=== PATIENT | female | born 1970 | race African-American/Black ===

== ENCOUNTER 2022-05-22 09:12 | Inpatient (IN) | payer MEDICAID, SELFPAY ==
[2022-05-22] VITALS (13 sets, daily range): BP systolic 124–186; BP diastolic 83–127; PULSE 67–76; RESP 13–18; TEMP 36.4–37; O2SAT 98–100; BMI 31.1
--- NOTE | 2022-05-22 | ECG_ITS ---
Test Reason : cp Blood Pressure : / mmHG Vent. Rate : 069 BPM Atrial Rate : 069 BPM P-R Int : 178 ms QRS Dur : 086 ms QT Int : 372 ms P-R-T Axes : 020 042 041 degrees QTc Int : 398 ms Normal sinus rhythm Normal ECG No previous ECGs available Referred By: Generic ED Physician Electronically Signed By:TOOTIE ESPINOZA
--- NOTE | ~2022-05-22 | XR_ITS ---
EXAMINATION: XR CHEST CLINICAL INFORMATION: Chest pain. COMPARISON: None TECHNIQUE: 2 views of the chest were obtained. FINDINGS: No significant abnormality is noted involving the heart, lungs, mediastinum, bony thorax or soft tissues. XR/XR chest 2V IMPRESSION: No acute cardiopulmonary process.
--- NOTE | ~2022-05-22 | XR_ITS ---
EXAMINATION: XR KNEE, LEFT CLINICAL INFORMATION: Left knee pain. COMPARISON: None TECHNIQUE: Four views of the left knee. FINDINGS: Bones and soft tissues are normal. No fracture or joint effusion. Alignment is anatomic. Joint spaces are well maintained. No abnormal soft tissue calcification. XR/XR knee LT 4V IMPRESSION: Unremarkable left knee.
--- NOTE | 2022-05-22 09:44 | ED_ITS ---
HPI - Extremity Injury (Lower) General Chief Complaint: Extremity Injury, Lower Stated Complaint: L knee swollen Time Seen by Provider: 05/22/22 09:43 Source: patient and EMS Mode of arrival: EMS Limitations: no limitations History of Present Illness HPI Narrative: 51 y/o female woth a PMH of HTN and GERD present to the ER for evaluation of left sided knee pain and swelling for the last 1 week. The patient also reports experiencing chest pain for the past 4 days. The patient has a family history of hyperparathyroidism (mother). Chest pain: The chest pain is sharp and currently a 4/10 that is located at the center of her chest. She reports on Saturday her pain radiated to her jaw, but at this time there is no radiation. The pain is intermittent and worsens with movement. Left Knee pain: The patient reports 10/10 left knee pain. She reports the pain started 2 days ago, and notes swelling above and around her knee, though has decreased due to an CORRINA wrap. She reports minimal relief with an corrina bandage and heat. Pain increases with movement and palpation. The patient denies any trauma, fever, or history of injury to the affected leg. MD complaint: knee injury Onset (ago): day(s) (2) Injury: Left: knee Place: home Severity: mild Severity scale (1-10): 4 Relieving factors: other (CORRINA bandage and heat ) Exacerbating factors: movement and palpation Associated symptoms: swelling Other symptoms: chest pain Treatments prior to arrival: heat therapy and bandage Related Data Allergies Allergy/AdvReac Type Severity Reaction Status Date / Time celecoxib [From Celebrex] AdvReac Unknown Verified 05/22/22 09:28 lisinopril AdvReac Unknown Verified 05/22/22 09:28 metoprolol AdvReac Unknown Verified 05/22/22 09:28 Review of Systems Review of Systems: Constitutional: No Fever, No Chills ENT/Mouth: No sore throat, No Rhinorrhea, No Swallowing Difficulty Eyes: No Eye Pain, No Swelling, No Redness Cardiovascular: + Chest Pain, No SOB, No Orthopnea, No Edema Respiratory: + Cough, + Clear Sputum, No Wheezing, No dyspnea Gastrointestinal: No Nausea, No Vomiting, No Diarrhea, No abdominal Pain, No Hematochezia, No Melena Genitourinary: No Dysuria, No Urinary Frequency, No Hematuria Musculoskeletal: + left knee joint pain, No Myalgias Skin: No Skin Lesions, No rash Neuro: No Weakness, No Numbness, No Dizziness, No Headache Heme/Lymph: No Bruising, No Lymphadenopathy Yes all other systems are reviewed and are negative [facility] Social History Social History Advance Directives: No Advance Directives Information Provided: No Physical Exam Vital Signs: Vital Signs: Last Vital Signs Temp 98.6 F 05/22/22 15:30 Pulse 73 05/22/22 15:50 Resp 15 05/22/22 15:50 BP 170/106 H 05/22/22 16:18 Pulse Ox 99 05/22/22 15:30 O2 Del Method 05/22/22 15:30 BMI result Body Mass Index 31.1 Appearance: Alert. Oriented X3. No acute distress. Eyes: Pupils equal, round and reactive to light. ENT: Pharynx normal. Neck: Normal inspection. Neck supple. Thyroid regular, no masses noted. CVS: Normal heart rate and rhythm. Pulses normal. Respiratory: No respiratory distress. Breath sounds normal. Abdomen: Soft and nontender. +BS x4 Skin: Skin warm and dry. Normal skin color. Normal skin turgor. No rashes. Extremities: Extreme tenderness to light touch of the left knee, tenderness to palpation superior to the patella, and the medial aspect of the knee. No edema noted. No erythema or warmth. Normal ROM of the left knee. No lower extremity edema. Neuro: Oriented X 3. No motor deficit. No sensory deficit. Stady gait Course Course Course Narrative: 9:45 - 51 y/o female PMH of HTN and GERD presenting with 10/10 left knee pain and 4/10 chest pain. Pain has been ongoing for 4 days, knee pain started 2 days ago. Physical exam remarkable for a left knee tender to palpation and pain with movement. No evidence of septic joint. Patient was HTN on exam at 177/115. Plan: Knee x-ray, CXR, Tropoin, EKG, CBC, CMP, nitroglycerin. Reevaluation(s) Reevaluation #1: 12 lead EKG NSR. Troponin only 3.6, low suspicion for myocardial injury. Chest pain is improved with SL nitro, 2/10. Calcium elevated at 12.8 Blood pressure decreases to 164/95 Plan: 2 L of NS ordered. Concern for possible hyperparathyoidism vs malignancy. She has strong family history of hyperparathyroidism. She is not on thiazide or lithium. She is not taking calcium supplements. LFTs, TSH, PTH and Vitamin D ordered. will repeat her chem 10 Time: 11:32 Reevaluation #2: BP improved after norvasc. Her Ca++ remains elevated 12.4 after 2L IVF. Will plan to admit for further workup and management Time: 16:23 Reevaluation #3: Incidentally COVID positive. Patient minimally symptomatic from this. Her chest pain could have been from this. Patient admitted. MDM - Extremity Injury (Lower) Medical Records Attestation: I reviewed the patient's medical records. Lab Data Attestation: I reviewed the patient's lab results. Result diagrams: 05/22/22 10:43 Labs: Lab Results 05/22/22 05/22/22 05/22/22 Range/Units 10:43 10:43 10:43 WBC 6.6 (4.8-10.8) X10*3/uL RBC 4.82 (4.20-5.50) X10*6/uL Hgb 10.6 L (12.0-16.0) g/dl Hct 35.8 L (37.0-47.0) % MCV 74.3 L (80.0-98.0) fL MCH 22.0 L (27.0-33.0) pg MCHC 29.6 L (31.0-35.0) g/dl RDW 16.9 H (11.0-16.0) % Plt Count 281 (160-400) X10*3/uL MPV 11.3 (9.4-12.3) fL Immature Gran % (Auto) 0.5 H (0.0-0.4) % Neut % (Auto) 46.1 (45-73) % Lymph % (Auto) 39.3 (20-40) % Garza % (Auto) 7.1 (2-11) % Eos % (Auto) 6.1 H (0-4) % Baso % (Auto) 0.9 (0-2) % Lymph # (Auto) 2.6 (1.2-4.9) X10*3/uL Garza # (Auto) 0.5 (0.1-1.2) X10*3/uL Eos # (Auto) 0.4 (0.0-0.4) X10*3/uL Baso # (Auto) 0.1 (0.0-0.2) X10*3/uL Abs Immat Gran (auto) 0.03 (0.00-0.03) X10*3/uL Absolute Neuts (auto) 3.1 (2.0-8.3) x10*3/uL Absolute Nucleated RBC 0.000 (0.0-0.012) X10*3/uL Nucleated RBC % (auto) 0.0 (0.0-0.2) /100WBC Sodium 140 (135-145) mmol/L Potassium 4.2 (3.3-5.1) mmol/L Chloride 108 (96-108) mmol/L Carbon Dioxide 24 (22-29) mmol/L Anion Gap 12 (12-20) BUN 10 (9-16) mg/dL Creatinine 0.87 (0.5-1.4) mg/dL Estim Creat Clear Calc 87.1 Estimated GFR > 60 Random Glucose 81 (60-115) mg/dL Calcium 12.8 H* (8.4-10.2) mg/dL Phosphorus (2.7-4.5) mg/dL Total Bilirubin 0.3 (0.0-1.0) mg/dL Direct Bilirubin < 0.2 (0.0-0.5) mg/dL AST 22 (5-31) U/L ALT 14 (0-31) U/L Alkaline Phosphatase 135 H (39-117) U/L Troponin I High Sens 3.6 (<3.5-17.0) ng/L Total Protein 7.8 (6.5-8.0) g/dL Albumin 4.4 (3.5-5.0) g/dL TSH 1.03 (0.32-4.0) uIU/mL COVID-19 (SUSAN) (Negative) COVID-19 Clin Com 05/22/22 05/22/22 Range/Units 15:45 16:23 WBC (4.8-10.8) X10*3/uL RBC (4.20-5.50) X10*6/uL Hgb (12.0-16.0) g/dl Hct (37.0-47.0) % MCV (80.0-98.0) fL MCH (27.0-33.0) pg MCHC (31.0-35.0) g/dl RDW (11.0-16.0) % Plt Count (160-400) X10*3/uL MPV (9.4-12.3) fL Immature Gran % (Auto) (0.0-0.4) % Neut % (Auto) (45-73) % Lymph % (Auto) (20-40) % [place] % (Auto) (2-11) % Eos % (Auto) (0-4) % Baso % (Auto) (0-2) % Lymph # (Auto) (1.2-4.9) X10*3/uL [place] # (Auto) (0.1-1.2) X10*3/uL Eos # (Auto) (0.0-0.4) X10*3/uL Baso # (Auto) (0.0-0.2) X10*3/uL Abs Immat Gran (auto) (0.00-0.03) X10*3/uL Absolute Neuts (auto) (2.0-8.3) x10*3/uL Absolute Nucleated RBC (0.0-0.012) X10*3/uL Nucleated RBC % (auto) (0.0-0.2) /100WBC Sodium 141 (135-145) mmol/L Potassium 4.0 (3.3-5.1) mmol/L Chloride 110 H (96-108) mmol/L Carbon Dioxide 23 (22-29) mmol/L Anion Gap 12 (12-20) BUN 7 L (9-16) mg/dL Creatinine 0.79 (0.5-1.4) mg/dL Estim Creat Clear Calc 96.0 Estimated GFR > 60 Random Glucose 99 (60-115) mg/dL Calcium 12.4 H (8.4-10.2) mg/dL Phosphorus 2.1 L (2.7-4.5) mg/dL Total Bilirubin (0.0-1.0) mg/dL Direct Bilirubin (0.0-0.5) mg/dL AST (5-31) U/L ALT (0-31) U/L Alkaline Phosphatase (39-117) U/L Troponin I High Sens (<3.5-17.0) ng/L Total Protein (6.5-8.0) g/dL Albumin (3.5-5.0) g/dL TSH (0.32-4.0) uIU/mL COVID-19 (SUSAN) Positive A (Negative) COVID-19 Clin Com See Note Imaging Data Knee X- Ray: Radiologist's impression: EXAMINATION: XR KNEE, LEFT CLINICAL INFORMATION: Left knee pain.? COMPARISON: None? TECHNIQUE: Four views of the left knee. FINDINGS: Bones and soft tissues are normal. No fracture or joint effusion. Alignment is anatomic. Joint spaces are well maintained. No abnormal soft tissue calcification.? XR/XR knee LT 4V IMPRESSION: Unremarkable left knee. Chest x-ray: Radiologist's impression: CLINICAL INFORMATION: Chest pain. COMPARISON: None TECHNIQUE: 2 views of the chest were obtained. FINDINGS: No significant abnormality is noted involving the heart, lungs, mediastinum, bony thorax or soft tissues. XR/XR chest 2V IMPRESSION: No acute cardiopulmonary process. ECG Data Attestation: I personally reviewed and interpreted this ECG as follows: ECG interpretation date: 05/22/22 ECG interpretation time: 11:52 Prior ECG tracings: not available for review Interpretation: Rate: 84 bpm Normal Sinus Rhythm Normal CO interval No ST elevations or depressions Critical Care Time Critical Care Time Critical Care Time: Yes Total Critical Care Time: 36 Attestation: I have personally provided critical care time exclusive of time spent on separately billable procedures. Time includes review of lab data, radiology results, discussion with consultants, and monitoring for potential decompensation. Intervention performed as documented. Discharge Plan Discharge Clinical Impression: Hypercalcemia, Poorly-controlled hypertension, Bursitis of knee, COVID-19 Patient Disposition: Admitted As Inpatient
[2022-05-22 10:49] LABS: MANUAL DIFF FLAG NO
[2022-05-22 10:50] LABS: Basophils Absolute Auto 0.1 X10*3/uL (0.0-0.2); Basophils Percent Auto 0.9 % (0-2); Eosinophils Absolute Auto 0.4 X10*3/uL (0.0-0.4); Eosinophils Percent Auto 6.1 % (0-4); Hematocrit 35.8 % (37.0-47.0); Hemoglobin 10.6 g/dl (12.0-16.0); Imm Gran Abs Auto 0.03 X10*3/uL (0.00-0.03); Imm Gran Pct Auto 0.5 % (0.0-0.4); Lymphocytes Absolute Auto 2.6 X10*3/uL (1.2-4.9); Lymphocytes Percent Auto 39.3 % (20-40); Mean Corpuscular HGB Conc 29.6 g/dl (31.0-35.0); Mean Corpuscular Volume 74.3 fL (80.0-98.0); Mean Platelet Volume 11.3 fL (9.4-12.3); Monocytes Absolute Auto 0.5 X10*3/uL (0.1-1.2); Monocytes Percent Auto 7.1 % (2-11); Neutrophils Absolute Auto 3.1 x10*3/uL (2.0-8.3); Neutrophils Percent Auto 46.1 % (45-73); Platelet Count 281 X10*3/uL (160-400); Red Blood Count 4.82 X10*6/uL (4.20-5.50); Red Cell Distribution Width 16.9 % (11.0-16.0); White Blood Count 6.6 X10*3/uL (4.8-10.8)
[2022-05-22 11:10] LABS: Anion Gap 12 (12-20); Blood Urea Nitrogen 10 mg/dL (9-16); Calcium 12.8 mg/dL (8.4-10.2); Carbon Dioxide 24 mmol/L (22-29); Chloride 108 mmol/L (96-108); Creatinine Clr Calc Pharmacy 87.1; Estimated Glomerular Filt Rate > 60; Glucose Random 81 mg/dL (60-115); Potassium 4.2 mmol/L (3.3-5.1); Sodium 140 mmol/L (135-145)
[2022-05-22 11:12] LABS: Troponin-I High Sensitivity 3.6 ng/L (<3.5-17.0)
[2022-05-22] MEDS: Nitroglycerin 0.4 MG TAB.SUBL SUBLINGUAL (11:20)
[2022-05-22] MEDS: 0.9 % Sodium Chloride 1,000 ML 999 ML IVCONT ×2 (11:32→13:05)
[2022-05-22 11:57] LABS: Alanine Aminotransferase 14 U/L (0-31); Albumin Level 4.4 g/dL (3.5-5.0); Alkaline Phosphatase 135 U/L (39-117); Aspartate Amino Transferase 22 U/L (5-31); Bilirubin Direct < 0.2 mg/dL (0.0-0.5); Bilirubin Total 0.3 mg/dL (0.0-1.0); Total Protein 7.8 g/dL (6.5-8.0)
[2022-05-22 12:19] LABS: Thyroid Stimulating Hormone 1.03 uIU/mL (0.32-4.0)
[2022-05-22] MEDS: amLODIPine Besylate 5 MG TABLET PO ×2 (15:52→17:21)
[2022-05-22] MEDS: Ketorolac Tromethamine 30 MG/ML VIAL IVPUSH (15:53)
[2022-05-22 16:11] LABS: Anion Gap 12 (12-20); Blood Urea Nitrogen 7 mg/dL (9-16); Calcium 12.4 mg/dL (8.4-10.2); Carbon Dioxide 23 mmol/L (22-29); Chloride 110 mmol/L (96-108); Estimated Glomerular Filt Rate > 60; Glucose Random 99 mg/dL (60-115); Sodium 141 mmol/L (135-145)
[2022-05-22 16:45] LABS: COVID-19 Test Positive (Negative); IDNOW Serial# 55D5AD1C
[2022-05-22 16:45] LABS: Phosphorus 2.1 mg/dL (2.7-4.5)
--- NOTE | 2022-05-22 17:04 | PHA.MEDREC ---
Pharmacy Consult ? Medication Reconciliation Pharmacy has completed the medication reconciliation. Patient states they are on both omeprazole and famotidine. Based on refill history, patient is not adherent to medications. Thanks David
[2022-05-22] MEDS: Acetaminophen 325 MG TABLET 975 MG PO (17:20)
--- NOTE | 2022-05-22 17:26 | PM.IMHP ---
History of Present Illness Date of Service: 05/22/22 Chief Complaint: Hypercalcemia 51 y/o female woth a PMH of HTN and GERD present to the ER for evaluation of left sided knee pain and swelling for the last 1 week. Routine labs demonstrated calcium was 12.4 in backdrop of family history of hyperparathyroidism. Also complained of chest pain. .. EKG unremarkable troponin flat. Received 2 L normal saline admission requested Review of Systems Review of Systems: Admits to chest pain that is reproducible Denies shortness of breath Denies nausea vomiting diarrhea Denies fever chills PMFSH Social History Advance Directives: No Advance Directives Information Provided: No Meds Allergies Allergy/AdvReac Type Severity Reaction Status Date / Time celecoxib [From Celebrex] AdvReac Unknown Verified 05/22/22 09:28 lisinopril AdvReac Unknown Verified 05/22/22 09:28 metoprolol AdvReac Unknown Verified 05/22/22 09:28 Active Medications: Current Medications Enoxaparin Sodium (Enoxaparin Sodium 40 Mg/0.4 Ml Syringe) 40 mg SUBCUT Q24H COUNTS INCLUDE 234 BEDS AT THE [facility] Famotidine (Famotidine 20 Mg Tablet) 40 mg PO DAILY PRN PRN Reason: Acid Reflux Furosemide (Furosemide 40 Mg/4 Ml Vial) 40 mg IVPUSH ONCE ONE; Protocol Stop: 05/22/22 17:22 Sodium Chloride (Ns) 1,000 mls @ 150 mls/hr IVCONT .Q6H40M COUNTS INCLUDE 234 BEDS AT THE [facility] Losartan Potassium (Losartan Potassium 50 Mg Tablet) 50 mg PO DAILY COUNTS INCLUDE 234 BEDS AT THE [facility]; Protocol Omeprazole (Omeprazole 40 Mg Capsule.) 40 mg PO DAILY COUNTS INCLUDE 234 BEDS AT THE [facility] Pharmacy Consult (Consult Rx Perform Med Rec) 1 each MISCELLANE ONCE PRN PRN Reason: Consult order Sodium Chloride (0.9 % Sodium Chloride Flush 3 Ml Syringe) 3 ml IVFLUSH QSHIFT COUNTS INCLUDE 234 BEDS AT THE [facility] Home Medications Medication Instructions Recorded Confirmed Last Taken Type famotidine 40 mg tablet 1 tab PO DAILY PRN Acid Reflux 05/22/22 05/22/22 05/22/22 History losartan 50 mg tablet 1 tab PO DAILY 05/22/22 05/22/22 05/22/22 History omeprazole 40 mg capsule,delayed 1 cap PO DAILY 05/22/22 05/22/22 05/22/22 History release Physical Exam Vital Signs and Narrative: Vital Signs: Last Vital Signs Temp 98.6 F 05/22/22 15:30 Pulse 73 05/22/22 15:50 Resp 15 05/22/22 15:50 BP 170/106 H 05/22/22 16:18 Pulse Ox 99 05/22/22 15:30 O2 Del Method 05/22/22 15:30 BMI result Body Mass Index 31.1 Const: Other: Awake alert oriented x3 no acute distress Resp: Other: Clear to auscultation bilaterally no rales rhonchi or wheezes Cardio: Other: No S4; positive S1-S2; no S3 murmurs rubs or gallops GI: Other: Soft nontender nondistended normoactive bowel sounds Neuro: Other: Cranial nerves 2-12 grossly intact as tested. Motor is 5/5 in all extremities. Sensation is intact. Cognition appropriate Extrem: Other: No edema bilaterally Results Labs CBC and Chem 7: 05/22/22 10:43 Labs: Laboratory Results - last 24 hr 05/22/22 05/22/22 05/22/22 10:43 10:43 10:43 MCV 74.3 L MCH 22.0 L MCHC 29.6 L RDW 16.9 H Plt Count 281 MPV 11.3 Immature Gran % (Auto) 0.5 H Neut % (Auto) 46.1 Lymph % (Auto) 39.3 [place] % (Auto) 7.1 Eos % (Auto) 6.1 H Baso % (Auto) 0.9 Lymph # (Auto) 2.6 [place] # (Auto) 0.5 Eos # (Auto) 0.4 Baso # (Auto) 0.1 Abs Immat Gran (auto) 0.03 Absolute Neuts (auto) 3.1 Absolute Nucleated RBC 0.000 Nucleated RBC % (auto) 0.0 Anion Gap 12 Estim Creat Clear Calc 87.1 Estimated GFR > 60 Random Glucose 81 Calcium 12.8 H* Phosphorus Total Bilirubin 0.3 Direct Bilirubin < 0.2 AST 22 ALT 14 Alkaline Phosphatase 135 H Troponin I High Sens 3.6 Total Protein 7.8 Albumin 4.4 TSH 1.03 COVID-19 (SUSAN) COVID-19 Clin Com 05/22/22 05/22/22 15:45 16:23 MCV MCH MCHC RDW Plt Count MPV Immature Gran % (Auto) Neut % (Auto) Lymph % (Auto) [place] % (Auto) Eos % (Auto) Baso % (Auto) Lymph # (Auto) [place] # (Auto) Eos # (Auto) Baso # (Auto) Abs Immat Gran (auto) Absolute Neuts (auto) Absolute Nucleated RBC Nucleated RBC % (auto) Anion Gap 12 Estim Creat Clear Calc 96.0 Estimated GFR > 60 Random Glucose 99 Calcium 12.4 H Phosphorus 2.1 L Total Bilirubin Direct Bilirubin AST ALT Alkaline Phosphatase Troponin I High Sens Total Protein Albumin TSH COVID-19 (SUSAN) Positive A COVID-19 Clin Com See Note Imaging Radiologist's Impressions: Impressions Chest X-Ray 05/22/22 10:10 IMPRESSION: No acute cardiopulmonary process. Knee X-Ray 05/22/22 10:10 IMPRESSION: Unremarkable left knee. Assessment and Plan (1) Hypercalcemia: Status: Acute (2) Poorly-controlled hypertension: Status: Acute (3) Bursitis of knee: Status: Acute (4) COVID-19: Status: Acute Plan 51-year-old female presenting with left knee pain in the absence of injury found to have a calcium of 12.6. Received 2 L of fluid in ER. Of note COVID positive 1. Hypercalcemia -parathyroid studies pending -admit to telemetry -forced diuresis with normal saline and IV Lasix -nephrology consult in a.m. -follow renals/divalents 2. Hypertension (poorly control) -continue losartan at outpatient dosing -at amlodipine 10 mg daily -titrate as indicated 3. COVID-19 -isolation -no indication for steroid/redesmivir as patient is essentially asymptomatic Full code Lovenox Patient will require 2 midnights going forward for forced diuresis with IV saline and IV Lasix to treat her hypercalcemia. She will need ongoing telemetry monitoring. This cannot be achieved in the lesser acute setting Quality Stroke Does the patient have a stroke diagnosis?: No VTE Prior VTE?: No VTE Risk Level:: Medical - moderate - high VTE Device Contraindication: Treatment Not Indicated VTE Drug Contraindication: N/A - Med Ordered
[2022-05-22] MEDS: Losartan Potassium 50 MG TABLET PO (17:54)
[2022-05-22] MEDS: Furosemide 40 MG/4 ML VIAL IVPUSH (17:54)
[2022-05-22] MEDS: 0.9 % Sodium Chloride 1,000 ML 150 ML IVCONT (18:13)
[2022-05-22] MEDS: Enoxaparin Sodium 40 MG/0.4 ML SYRINGE SUBCUT (20:05)
--- NOTE | 2022-05-22 21:18 | PC.NURSE ---
Addendum entered by Yane Thompson RN 05/22/22 22:02: Report given to jennifer Ahumada will be transported to bed 1 Original Note: Attempted to call report to overflow at 21:19. RN said she will call back when she is ready for report.
[2022-05-23] VITALS (7 sets, daily range): BP systolic 125–146; BP diastolic 63–94; PULSE 66–82; RESP 14–20; TEMP 36.1–37.1; O2SAT 97–100
[2022-05-23] MEDS: 0.9 % Sodium Chloride 1,000 ML 150 ML IVCONT ×3 (02:10→17:30)
[2022-05-23] MEDS: Omeprazole 40 MG CAPSULE.DR PO (06:11)
--- NOTE | 2022-05-23 06:29 | MHC.PIE ---
Patient transerred over from main ER to overflow area at approx 2230. Patient ambulated from stretcher to bed. Patient denies SOB, but does have a dry, persistent cough. This morning patient c/o headache & cough. Dr Tejada made aware, ordered tessalon & tylenol - awaiting order verification from pharmacy.
[2022-05-23 07:16] LABS: MANUAL DIFF FLAG NO
[2022-05-23 07:19] LABS: Basophils Percent Auto 0.9 % (0-2); Eosinophils Absolute Auto 0.5 X10*3/uL (0.0-0.4); Eosinophils Percent Auto 11.1 % (0-4); Hematocrit 38.7 % (37.0-47.0); Hemoglobin 11.4 g/dl (12.0-16.0); Imm Gran Abs Auto 0.02 X10*3/uL (0.00-0.03); Imm Gran Pct Auto 0.5 % (0.0-0.4); Lymphocytes Absolute Auto 1.1 X10*3/uL (1.2-4.9); Lymphocytes Percent Auto 24.8 % (20-40); Mean Corpuscular HGB Conc 29.5 g/dl (31.0-35.0); Mean Corpuscular Hemoglobin 21.9 pg (27.0-33.0); Mean Corpuscular Volume 74.4 fL (80.0-98.0); Mean Platelet Volume 11.3 fL (9.4-12.3); Monocytes Absolute Auto 0.5 X10*3/uL (0.1-1.2); Monocytes Percent Auto 11.8 % (2-11); Neutrophils Absolute Auto 2.2 x10*3/uL (2.0-8.3); Neutrophils Percent Auto 50.9 % (45-73); Platelet Count 265 X10*3/uL (160-400); Red Cell Distribution Width 17.1 % (11.0-16.0); White Blood Count 4.2 X10*3/uL (4.8-10.8)
[2022-05-23] MEDS: Acetaminophen 325 MG TABLET 650 MG PO (09:31)
[2022-05-23] MEDS: Losartan Potassium 50 MG TABLET PO (09:32)
[2022-05-23] MEDS: Benzonatate 100 MG CAPSULE PO (09:32)
--- NOTE | 2022-05-23 11:45 | MHC.CM.PN ---
spoke with pt over the phone she is covid positive she is vax x 4 she lives with her children has own ride home she is indepdent and workks at [employer] [facility] in [facility] plan home no servceis
[2022-05-23 12:37] LABS: Calcium (PTHI) 12.9 mg/dL (8.6-10.2); PTHI 167 pg/mL (16-77)
--- NOTE | 2022-05-23 16:31 | P.PNIM_ITS ---
Subjective Subjective Date of Service: 05/23/22 Interval History: No acute issues overnight. Mild cough related to COVID Review of Systems Admits to chest pain that is reproducible Denies shortness of breath Denies nausea vomiting diarrhea Denies fever chills Physical Exam Vital Signs: Vital Signs: Last Vital Signs Temp 97.8 F 05/23/22 11:25 Pulse 82 05/23/22 11:25 Resp 14 05/23/22 11:25 BP 134/88 05/23/22 11:25 Pulse Ox 98 05/23/22 11:25 O2 Del Method 05/23/22 11:25 BMI result Body Mass Index 31.1 Const: Other: Awake alert oriented x3 no acute distress Resp: Other: Clear to auscultation bilaterally no rales rhonchi or wheezes Cardio: Other: No S4; positive S1-S2; no S3 murmurs rubs or gallops GI: Other: Soft nontender nondistended normoactive bowel sounds Neuro: Other: Cranial nerves 2-12 grossly intact as tested. Motor is 5/5 in all extremities. Sensation is intact. Cognition appropriate Extrem: Other: No edema bilaterally Objective Data Active Medications Acetaminophen (Acetaminophen 325 Mg Tablet) 650 mg PO Q6H PRN PRN Reason: Pain, Mild (Pain Scale 1-3) Last Admin: 05/23/22 09:31 Dose: 650 mg Documented By: TAE Benzonatate (Benzonatate 100 Mg Capsule) 100 mg PO TID PRN PRN Reason: Cough Last Admin: 05/23/22 09:32 Dose: 100 mg Documented By: TAE Enoxaparin Sodium (Enoxaparin Sodium 40 Mg/0.4 Ml Syringe) 40 mg SUBCUT Q24H COUNT INCLUDES THE [facility] Last Admin: 05/22/22 20:05 Dose: 40 mg Documented By: DEBBIE Famotidine (Famotidine 20 Mg Tablet) 40 mg PO DAILY PRN PRN Reason: Acid Reflux Sodium Chloride (Ns) 1,000 mls @ 150 mls/hr IVCONT .Q6H40M COUNT INCLUDES THE [facility] Last Infusion: 05/23/22 16:21 Dose: 0 mls/hr Documented By: TAE Losartan Potassium (Losartan Potassium 50 Mg Tablet) 50 mg PO DAILY COUNT INCLUDES THE [facility]; Protocol Last Admin: 05/23/22 09:32 Dose: 50 mg Documented By: TAE Omeprazole (Omeprazole 40 Mg Oskar.) 40 mg PO DAILY@0630 COUNT INCLUDES THE [facility] Last Admin: 05/23/22 06:11 Dose: 40 mg Documented By: VIRI Pharmacy Consult (Consult Rx Perform Med Rec) 1 each MISCELLANE ONCE PRN PRN Reason: Consult order Sodium Chloride (0.9 % Sodium Chloride Flush 3 Ml Syringe) 3 ml IVFLUSH QSHIFT COUNT INCLUDES THE [facility] Last Admin: 05/23/22 15:57 Dose: Not Given Documented By: TAE Non-Admin Reason: IV Running Labs CBC & Chem 7: 05/23/22 07:06 05/23/22 Unknown Labs: Laboratory Results - last 24 hr 05/22/22 05/22/22 05/22/22 10:43 15:45 16:23 MCV MCH MCHC RDW Plt Count MPV Immature Gran % (Auto) Neut % (Auto) Lymph % (Auto) [place] % (Auto) Eos % (Auto) Baso % (Auto) Lymph # (Auto) [place] # (Auto) Eos # (Auto) Baso # (Auto) Abs Immat Gran (auto) Absolute Neuts (auto) Absolute Nucleated RBC Nucleated RBC % (auto) Phosphorus 2.1 L PTH Intact 167 H Calcium (PTH Intact) 12.9 H COVID-19 (SUSAN) Positive A COVID-19 Clin Com See Note 05/23/22 07:06 MCV 74.4 L MCH 21.9 L MCHC 29.5 L RDW 17.1 H Plt Count 265 MPV 11.3 Immature Gran % (Auto) 0.5 H Neut % (Auto) 50.9 Lymph % (Auto) 24.8 [place] % (Auto) 11.8 H Eos % (Auto) 11.1 H Baso % (Auto) 0.9 Lymph # (Auto) 1.1 L [place] # (Auto) 0.5 Eos # (Auto) 0.5 H Baso # (Auto) 0.0 Abs Immat Gran (auto) 0.02 Absolute Neuts (auto) 2.2 Absolute Nucleated RBC 0.000 Nucleated RBC % (auto) 0.0 Phosphorus PTH Intact Calcium (PTH Intact) COVID-19 (SUSAN) COVID-19 Clin Com Assessment and Plan (1) Hypercalcemia: Status: Acute (2) Poorly-controlled hypertension: Status: Acute (3) COVID-19: Status: Acute Plan 51-year-old female presenting with left knee pain in the absence of injury found to have a calcium of 12.6. Received 2 L of fluid in ER. Of note COVID positive 1. Hypercalcemia -parathyroid studies consistent with primary hyperparathyroidism -admit to telemetry -forced diuresis with normal saline and IV Lasix -check calcium in a.m.; if less than 12.5 can DC in a.m.. If greater than 12.4 start Sensipar 30 mg daily -needs to follow-up with Dr. Castorena at [facility] (as outpatient) 2. Hypertension (poorly control) -continue losartan at outpatient dosing -at amlodipine 10 mg daily -titrate as indicated 3. COVID-19 -isolation -no indication for steroid/redesmivir as patient is essentially asymptomatic Full code Lovenox Requires ongoing hospitalization for IV fluids to treat hypercalcemia Quality Stroke Does the patient have a stroke diagnosis?: No VTE Prior VTE?: No VTE Risk Level:: Medical - moderate - high VTE Device Contraindication: Treatment Not Indicated VTE Drug Contraindication: N/A - Med Ordered
[2022-05-23 18:35] LABS: Alanine Aminotransferase 13 U/L (0-31); Albumin Level 3.9 g/dL (3.5-5.0); Alkaline Phosphatase 142 U/L (39-117); Anion Gap 9 (12-20); Aspartate Amino Transferase 18 U/L (5-31); Bilirubin Total 0.2 mg/dL (0.0-1.0); Blood Urea Nitrogen 7 mg/dL (9-16); Calcium 12.3 mg/dL (8.4-10.2); Carbon Dioxide 25 mmol/L (22-29); Chloride 111 mmol/L (96-108); Creatinine Clr Calc Pharmacy 92.5; Estimated Glomerular Filt Rate > 60; Phosphorus 2.6 mg/dL (2.7-4.5); Potassium 4.4 mmol/L (3.3-5.1); Sodium 141 mmol/L (135-145); Total Protein 7.2 g/dL (6.5-8.0)
[2022-05-23] MEDS: Enoxaparin Sodium 40 MG/0.4 ML SYRINGE SUBCUT (19:45)
--- NOTE | 2022-05-23 19:50 | PC.NURSE ---
Pt A&OX3. Pleasant and cooperative. Speech is clear and appropriate. LS-CTA. Denies sob. Has occasional dry/non-productive cough. Denies pain. Ambulates to bsc with steady gait. IV fluids infusing as ordered. Will continue to monitor.
[2022-05-24 04:15] LABS: Glucose Random 67 mg/dL (60-115)
[2022-05-24 04:48] VITALS: BP 128/74; PULSE 61; RESP 17; TEMP 36.6; O2SAT 99
[2022-05-24] MEDS: Omeprazole 40 MG CAPSULE.DR PO (04:52)
[2022-05-24] MEDS: Acetaminophen 325 MG TABLET 650 MG PO (04:52)
[2022-05-24 05:24] LABS: Creatinine Urine 33.61 mg/dL
[2022-05-24 07:49] VITALS: BP 136/79; PULSE 65; RESP 14; TEMP 36.7; O2SAT 99
[2022-05-24] MEDS: Losartan Potassium 50 MG TABLET PO (07:56)
[2022-05-24] MEDS: 0.9 % Sodium Chloride 1,000 ML 150 ML IVCONT (07:57)
[2022-05-24 08:10] LABS: MANUAL DIFF FLAG NO
[2022-05-24 08:22] LABS: Basophils Percent Auto 0.4 % (0-2); Eosinophils Absolute Auto 0.5 X10*3/uL (0.0-0.4); Eosinophils Percent Auto 11.2 % (0-4); Hematocrit 38.7 % (37.0-47.0); Hemoglobin 11.2 g/dl (12.0-16.0); Imm Gran Abs Auto 0.01 X10*3/uL (0.00-0.03); Imm Gran Pct Auto 0.2 % (0.0-0.4); Lymphocytes Percent Auto 43.3 % (20-40); Mean Corpuscular HGB Conc 28.9 g/dl (31.0-35.0); Mean Corpuscular Hemoglobin 21.8 pg (27.0-33.0); Mean Corpuscular Volume 75.3 fL (80.0-98.0); Mean Platelet Volume 12.1 fL (9.4-12.3); Monocytes Absolute Auto 0.5 X10*3/uL (0.1-1.2); Monocytes Percent Auto 11.4 % (2-11); Neutrophils Absolute Auto 1.6 x10*3/uL (2.0-8.3); Neutrophils Percent Auto 33.5 % (45-73); Platelet Count 287 X10*3/uL (160-400); Red Blood Count 5.14 X10*6/uL (4.20-5.50); Red Cell Distribution Width 17.2 % (11.0-16.0); White Blood Count 4.7 X10*3/uL (4.8-10.8)
[2022-05-24 08:39] LABS: Alanine Aminotransferase 13 U/L (0-31); Albumin Level 4.1 g/dL (3.5-5.0); Alkaline Phosphatase 147 U/L (39-117); Anion Gap 10 (12-20); Aspartate Amino Transferase 19 U/L (5-31); Bilirubin Total 0.2 mg/dL (0.0-1.0); Blood Urea Nitrogen 6 mg/dL (9-16); Calcium 12.7 mg/dL (8.4-10.2); Carbon Dioxide 25 mmol/L (22-29); Chloride 109 mmol/L (96-108); Creatinine Clr Calc Pharmacy 93.6; Estimated Glomerular Filt Rate > 60; Glucose Fasting 83 mg/dL (60-99); Potassium 4.4 mmol/L (3.3-5.1); Sodium 140 mmol/L (135-145); Total Protein 7.6 g/dL (6.5-8.0)
--- NOTE | 2022-05-24 08:40 | PC.NURSE ---
critical calcium relayed to Amadou SKINNER
--- NOTE | 2022-05-24 10:23 | PM.DS ---
DS: Providers Provider Date of Service: 05/24/22 Date of admission: 05/22/22 17:20 Primary care physician: Jeanmarie Drake MD Consults: 05/22/22 17:24 Consult to Nephrology Routine Consulting Provider: Julian Davis Reason for consultation: Hypercalcemia Has provider been notified: Yes DS: Diagnosis Discharge Diagnosis (1) Hypercalcemia: Status: Acute (2) COVID-19: Status: Acute DS: Summary Hospital Course Hospital Course: Chief Complaint: Hypercalcemia 51 y/o female woth a PMH of HTN and GERD present to the ER for evaluation of left sided knee pain and swelling for the last 1 week.? Routine labs demonstrated calcium was 12.4 in backdrop of family history of hyperparathyroidism.? Also complained of chest pain. ..? EKG unremarkable troponin flat.? Received 2 L normal saline admission requested Hospital course: Patient has known hyperparathyroidismm causing hypercalcemia should have surgery for removal. She was treated with IV Lasix and fluid and assymptomatic from hypercalcemia, calcium level is 12.[address] Davis ([employer]ist) will help facilitate surgery for her at [facility] Time Spent with Patient Time attestation: Total time spent providing and/or coordinating discharge services: Discharge coordination time: Greater than 30 minutes Quality: Safe Use of Opioids Does Pt have an Active Cancer Diagnosis on the Problem List?: No Quality: Stroke Does the patient have a stroke diagnosis?: No Physical Exam Vital Signs: Vital Signs: Last Vital Signs Temp 98.0 F 05/24/22 07:49 Pulse 65 05/24/22 07:49 Resp 14 05/24/22 07:49 BP 136/79 05/24/22 07:49 Pulse Ox 99 05/24/22 07:49 O2 Del Method 05/24/22 07:49 BMI result Body Mass Index 31.1 DS: Data Data Completed and Pending Labs on day of discharge: Laboratory Results - last 24 hr 05/22/22 05/23/22 05/23/22 10:43 17:46 17:46 WBC RBC Hgb Hct MCV MCH MCHC RDW Plt Count MPV Immature Gran % (Auto) Neut % (Auto) Lymph % (Auto) [place] % (Auto) Eos % (Auto) Baso % (Auto) Lymph # (Auto) [place] # (Auto) Eos # (Auto) Baso # (Auto) Abs Immat Gran (auto) Absolute Neuts (auto) Absolute Nucleated RBC Nucleated RBC % (auto) Sodium 141 Cancelled Potassium 4.4 Cancelled Chloride 111 H Cancelled Carbon Dioxide 25 Cancelled Anion Gap 9 L Cancelled BUN 7 L Creatinine 0.82 Estim Creat Clear Calc 92.5 Estimated GFR > 60 Random Glucose 67 Fasting Glucose Cancelled Calcium 12.3 H Cancelled Phosphorus 2.6 L Cancelled Total Bilirubin 0.2 AST 18 ALT 13 Alkaline Phosphatase 142 H Total Protein 7.2 Albumin 3.9 PTH Intact 167 H Calcium (PTH Intact) 12.9 H Urine Creatinine 05/24/22 05/24/22 05/24/22 04:55 07:29 07:29 WBC 4.7 L RBC 5.14 Hgb 11.2 L Hct 38.7 MCV 75.3 L MCH 21.8 L MCHC 28.9 L RDW 17.2 H Plt Count 287 MPV 12.1 Immature Gran % (Auto) 0.2 Neut % (Auto) 33.5 L Lymph % (Auto) 43.3 H [place] % (Auto) 11.4 H Eos % (Auto) 11.2 H Baso % (Auto) 0.4 Lymph # (Auto) 2.0 [place] # (Auto) 0.5 Eos # (Auto) 0.5 H Baso # (Auto) 0.0 Abs Immat Gran (auto) 0.01 Absolute Neuts (auto) 1.6 L Absolute Nucleated RBC 0.000 Nucleated RBC % (auto) 0.0 Sodium 140 Potassium 4.4 Chloride 109 H Carbon Dioxide 25 Anion Gap 10 L BUN 6 L Creatinine 0.81 Estim Creat Clear Calc 93.6 Estimated GFR > 60 Random Glucose Fasting Glucose 83 Calcium 12.7 H* Phosphorus Total Bilirubin 0.2 AST 19 ALT 13 Alkaline Phosphatase 147 H Total Protein 7.6 Albumin 4.1 PTH Intact Calcium (PTH Intact) Urine Creatinine 33.61 Discharge Plan Discharge Anticipated Discharge Date/Time: 05/24/22 10:19 Patient Disposition: Home, Self-Care Discharge Diagnosis: Hypercalcemia Referrals: Jeanmarie Drake MD [Primary Care Provider] - 1 Week Discharge Medications: Continued losartan 50 mg tablet 1 tab PO DAILY famotidine 40 mg tablet 1 tab PO DAILY PRN (Reason: Acid Reflux) omeprazole 40 mg capsule,delayed release(DR/EC) 1 cap PO DAILY Discharge Orders: Discharge Order (Routine); Ordered 05/24/22 Ordered By: Sina Tobar Diet: Advance to usual diet Activity on Discharge: As tolerated Stand Alone Forms: Patient Portal Discharge page Care Plan Goals: resolution of hypercalcemia Health Concerns: Hypercalcemia Plan of Treatment: follow up with Dr. Davis who will refer you to surgoen of surgery of parathyroidis Assessment: as above Discharge Date/Time: 05/24/22 12:02
--- NOTE | 2022-05-24 10:54 | CONS_ITS ---
DATE OF SERVICE: 05/23/2022 HISTORY OF PRESENT ILLNESS: I was asked to see patient to assist in evaluation and management of patient's hypercalcemia with a calcium was 12.4 on admission, who presented to the emergency room with left-sided knee pain and swelling. Decision was made to admit to the hospital because of hypercalcemia. She also apparently had some chest pain. Patient tells me that several years ago, she was noted to have hypercalcemia, had a workup with a diagnosis of primary hyperthyroidism, saw medical equipment repairer in , but was lost to follow up. She also tells me she has remote history of kidney stones. She has a family history of hypercalcemia and primary hyperthyroidism in her mom, required surgery. Presently, she is complaining of the knee pain, but otherwise doing okay. Her calcium today is pending. She denies any nausea, vomiting, belly pain, flank pain, or joint pain other than her knee. PAST MEDICAL HISTORY: Notable for the arthritis and hypertension. MEDICATIONS: Her medications on admission are noted in the admitting notes include losartan, Pepcid, and omeprazole. Her current medications on the OCT. SOCIAL HISTORY: She is nonsmoker, nondrinker. No illicit drug use. FAMILY HISTORY: As mentioned with the hypercalcemia in the mom with primary hyperparathyroidism. She is not aware of anyone who is having hypercalcemia or hyperparathyroidism or any other endocrine disorders. PHYSICAL EXAMINATION: VITAL SIGNS: Blood pressure 134/80 with a heart rate in the 80s. She is afebrile. HEENT: Head is atraumatic and normocephalic. NECK: Supple. Mucous membranes are moist. LUNGS: Clear. CARDIAC: Regular rate and rhythm without rub. ABDOMEN: Soft, nontender. Good bowel sounds. No CVA tenderness. EXTREMITIES: Show no edema. LABORATORY DATA: From yesterday afternoon showed sodium 141, potassium 4, chloride 110, BUN 7, creatinine 0.79. Calcium 12.4, apparently was as high as 12.8 yesterday in the morning. Phosphorus 2.1. Her PTH level came back to 167. IMPRESSION: A 51-YEAR-OLD WITH HYPERCALCEMIA AND ELEVATED PTH, CONSISTENT WITH PRIMARY HYPERPARATHYROIDISM. At this juncture, she does not need specific treatment for her hypercalcemia, but should be evaluated for parathyroidectomy. She has had a history of kidney stones and persistent hypercalcemia with an appropriate increase in intact PTH. We will order urine calcium to creatinine ratio to rule out hypercalcemia with hypocalciuric, which can be familial, so-called (FHH). If her calcium will increase further, 1 could use Sensipar, but at this point in time, I do not think she needs it, but she should avoid calcium and vitamin D supplementation. She will need to follow up with Endocrine and see the endocrine surgeon regarding treatment of her primary hyperparathyroidism. So, in summary, I will order urine calcium/creatinine ratio. Continue to track calcium. Avoid dehydration. Avoid vitamin D and calcium supplementation. Needs evaluation of the endocrine as well as the endocrine surgeon. MD MALVIN Bravo/ASUNCION / [id number]
--- NOTE | 2022-05-24 11:03 | P.PNNP_ITS ---
Subjective Subjective Date of Service: 05/24/22 Interval history: Seen and examined, events noted Physical Exam Vital Signs: Vital Signs: Last Vital Signs Temp 98.0 F 05/24/22 07:49 Pulse 65 05/24/22 07:49 Resp 14 05/24/22 07:49 BP 136/79 05/24/22 07:49 Pulse Ox 99 05/24/22 07:49 O2 Del Method 05/24/22 07:49 BMI result Body Mass Index 31.1 Const: Other: Awake alert oriented x3 no acute distress Resp: Other: Clear to auscultation bilaterally no rales rhonchi or wheezes Cardio: Other: No S4; positive S1-S2; no S3 murmurs rubs or gallops GI: Other: Soft nontender nondistended normoactive bowel sounds Neuro: Other: Cranial nerves 2-12 grossly intact as tested. Motor is 5/5 in all extremities. Sensation is intact. Cognition appropriate Extrem: Other: No edema bilaterally Objective Data Labs CBC & Chem 7: 05/24/22 07:29 05/24/22 07:29 Labs: Laboratory Results - last 24 hr 05/22/22 05/23/22 05/23/22 10:43 17:46 17:46 WBC RBC Hgb Hct MCV MCH MCHC RDW Plt Count MPV Immature Gran % (Auto) Neut % (Auto) Lymph % (Auto) [place] % (Auto) Eos % (Auto) Baso % (Auto) Lymph # (Auto) [place] # (Auto) Eos # (Auto) Baso # (Auto) Abs Immat Gran (auto) Absolute Neuts (auto) Absolute Nucleated RBC Nucleated RBC % (auto) Sodium 141 Cancelled Potassium 4.4 Cancelled Chloride 111 H Cancelled Carbon Dioxide 25 Cancelled Anion Gap 9 L Cancelled BUN 7 L Creatinine 0.82 Estim Creat Clear Calc 92.5 Estimated GFR > 60 Random Glucose 67 Fasting Glucose Cancelled Calcium 12.3 H Cancelled Phosphorus 2.6 L Cancelled Total Bilirubin 0.2 AST 18 ALT 13 Alkaline Phosphatase 142 H Total Protein 7.2 Albumin 3.9 PTH Intact 167 H Calcium (PTH Intact) 12.9 H Urine Creatinine 05/24/22 05/24/22 05/24/22 04:55 07:29 07:29 WBC 4.7 L RBC 5.14 Hgb 11.2 L Hct 38.7 MCV 75.3 L MCH 21.8 L MCHC 28.9 L RDW 17.2 H Plt Count 287 MPV 12.1 Immature Gran % (Auto) 0.2 Neut % (Auto) 33.5 L Lymph % (Auto) 43.3 H [place] % (Auto) 11.4 H Eos % (Auto) 11.2 H Baso % (Auto) 0.4 Lymph # (Auto) 2.0 [place] # (Auto) 0.5 Eos # (Auto) 0.5 H Baso # (Auto) 0.0 Abs Immat Gran (auto) 0.01 Absolute Neuts (auto) 1.6 L Absolute Nucleated RBC 0.000 Nucleated RBC % (auto) 0.0 Sodium 140 Potassium 4.4 Chloride 109 H Carbon Dioxide 25 Anion Gap 10 L BUN 6 L Creatinine 0.81 Estim Creat Clear Calc 93.6 Estimated GFR > 60 Random Glucose Fasting Glucose 83 Calcium 12.7 H* Phosphorus Total Bilirubin 0.2 AST 19 ALT 13 Alkaline Phosphatase 147 H Total Protein 7.6 Albumin 4.1 PTH Intact Calcium (PTH Intact) Urine Creatinine 33.61 Procedures Date of Service Date of Service: 05/24/22 Assessment & Plan Assessment and plan (1) Hypercalcemia: Status: Acute (2) Poorly-controlled hypertension: Status: Acute (3) COVID-19: Status: Acute Plan 51-year-old female presenting with left knee pain in the absence of injury found to have a calcium of 12.6. Received 2 L of fluid in ER and she gives h/o prior Dx of PHPTHism several years ago but not treated 1. HyperCA: c/w PHPTHism dout [facility]; no indication to treat with sensipar at this time but should get PTX ( [place] [facility] [place] an [place] for her to c him for PTx evaluation) REC: d/c IVF and track Ca; refer to Dr Loo as noted above Time Spent With Patient Time: Total time spent is greater than 50% in coordination of care (as documented) at patient's floor/unit and/or counseling patient: Progress Note: Quality Stroke Does the patient have a stroke diagnosis?: No
[2022-05-24 11:47] VITALS: BP 133/69; PULSE 75; RESP 16; TEMP 36.6; O2SAT 97
[2022-05-26 23:07] LABS: Calcium, Random Urine 11.5 mg/dL
[2022-05-28 14:32] LABS: Vitamin D 25-OH, D2 <4 ng/mL; Vitamin D 25-OH, D3 25 ng/mL; Vitamin D 25-OH, Total 25 ng/mL (30-100)
== END 2022-05-24 12:02 | disposition home or self-care (01) | DRG 424 ==
LOC: HO.ED 16:26 → HO.EDOVER 17:40
PROVIDERS: Internal Medicine Nephrology; Physician Assistant; Admitting Provider Hospitalist; Emergency Provider Emergency Medicine; PCP Internal Medicine; Visit Provider Internal Medicine
DX: E21.0 Primary hyperparathyroidism (principal); U07.1 COVID-19; M71.9 Bursopathy, unspecified; I10 Essential (primary) hypertension; Z88.6 Allergy status to analgesic agent; Z88.8 Allergy status to other drugs, medicaments and biological substances; Z79.899 Other long term (current) drug therapy
CPT/HCPCS: 36415; 71046; 73564; 80048; 80053; 80076; 82306; 82310; 83970; 84100; 84443; 84484; 85025; 87635; 93005; 99219; 99285; J1650; J1885; J1940

== ENCOUNTER 2022-07-26 10:34 | Outpatient (REF) | payer MEDICAID, SELFPAY ==
--- NOTE | ~2022-07-26 | CT_ITS ---
EXAMINATION: CT CHEST WITHOUT CONTRAST CLINICAL INFORMATION: Chronic bronchitis COMPARISON: None TECHNIQUE: Multidetector volumetric CT imaging of the chest was done. Axial MIP volume rendering provided. Sagittal and coronal reformatted images were obtained. This CT examination was performed using dose optimization techniques as appropriate, variously including the following: *Automated exposure control *Adjustment of mA and/or kV according to patient size (this includes techniques or standardized protocols for targeted exams where dose is matched to indication/reason for exam; i.e. 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 There are no pulmonary nodules, mass or consolidation. The interstitial lung pattern is normal. No bronchiectasis or wall thickening. MEDIASTINUM: The thyroid lobes are symmetric and normal. The central trachea and bronchi are widely patent. Heart size and the great vessels are normal caliber. No pericardial effusion seen. No abnormal size mediastinal or hilar lymph nodes seen. There is moderate size residual thymic tissue visualized. CORONARY ARTERY CALCIFICATION: None visualized on this study. PLEURA: There is no pleural effusion. No pleural mass or thickening. AXILLA: Small shotty lymph nodes are seen in the axilla. UPPER ABDOMEN: Visualized liver, spleen, pancreas and bilateral adrenal glands are unremarkable. No gallstone seen. OSSEOUS STRUCTURES: No aggressive lytic or sclerotic process seen. CT/CT chest wo IV con IMPRESSION: Unremarkable CT chest exam. Fleischner guidelines were followed.
== END 2022-07-26 10:35 | disposition home or self-care (01) ==
LOC: HO.CT 10:34
PROVIDERS: PCP Internal Medicine; Visit Provider Physician Assistant
DX: J41.8 Mixed simple and mucopurulent chronic bronchitis (principal)
CPT/HCPCS: 71250

== ENCOUNTER 2022-08-18 15:22 | Emergency (ER) | payer MEDICAID, SELFPAY ==
[2022-08-18 16:24] VITALS: BP 138/97; PULSE 82; RESP 18; TEMP 37; O2SAT 100; BMI 29.9
--- NOTE | 2022-08-18 16:27 | ECG_ITS ---
Test Reason : dizzyness Blood Pressure : / mmHG Vent. Rate : 075 BPM Atrial Rate : 075 BPM P-R Int : 180 ms QRS Dur : 094 ms QT Int : 374 ms P-R-T Axes : 059 044 049 degrees QTc Int : 417 ms Normal sinus rhythm Normal ECG When compared with ECG of 22-MAY-2022 09:37, No significant change was found Referred By: Mickie Edwards Electronically Signed By:CHRISTIANNE DAHL MD
--- NOTE | 2022-08-18 16:27 | ED.GENADULT ---
HPI - General Adult General Chief complaint: General Medical Stated complaint: Flu like symptoms Time Seen by Provider: 08/18/22 18:30 Source: patient Mode of arrival: ambulatory Limitations: no limitations History of Present Illness HPI narrative: Patient is a 51 year old assigned female at with a history of thyroidectomy presenting to the emergency department today with body aches, dizziness, and nausea. Patient states that 2 weeks ago she had her thyroid removed and has not been started on any thyroid medications. Patient states that she has been having these current symptoms over the last 2 days. Patient denies any lightheadedness, abdominal pain, vomiting, fever, chills, blurry vision, double vision, loss of vision, chest pain, difficulty breathing, shortness of breath, back pain, night sweats, pain with urination, increased urinary frequency, increased urinary urgency, blood in her urine or stool, syncope or a near syncopal episode, recent trauma or falls, bowel incontinence, bladder incontinence, bowel retention, bladder retention, or any other complaints at this time. Onset (ago): day(s) (2) Severity: mild Severity scale (1-10): 2 Relieving factors: none Exacerbating factors: none Associated symptoms: nausea/vomiting Treatments prior to arrival: none Related Data Home Medications Medication Instructions Recorded Confirmed famotidine 40 mg tablet 1 tab PO DAILY PRN Acid Reflux 05/22/22 05/22/22 losartan 50 mg tablet 1 tab PO DAILY 05/22/22 05/22/22 omeprazole 40 mg capsule,delayed 1 cap PO DAILY 05/22/22 05/22/22 release Previous Rx's Medication Instructions Recorded ondansetron 4 mg disintegrating 4 mg PO Q8H 3 days #9 tabs 08/18/22 tablet Allergies Allergy/AdvReac Type Severity Reaction Status Date / Time celecoxib [From Celebrex] AdvReac Intermediate Swelling Verified 08/18/22 16:24 lisinopril AdvReac Intermediate Swelling Verified 08/18/22 16:24 metoprolol AdvReac Intermediate Swelling Verified 08/18/22 16:24 Review of Systems Constitutional: Constitutional: Reports no additional constitutional complaints, Reports body ache(s), Denies chills, Denies fever(s) and Denies night sweats Eyes: Eyes: Reports no additional eye complaints, Denies blurry vision, Denies change in vision, Denies diplopia, Denies eye discharge, Denies loss of vision and Denies eye pain ENT: Reports dizziness Cardiovascular: Cardiovascular: Reports no additional cardiovascular complaints, Denies chest pain, Denies lightheadedness, Denies Loss of Consciousness and Denies dyspnea Respiratory: Respiratory: Reports no additional respiratory complaints and Denies dyspnea Gastrointestinal: Gastrointestinal: Reports no additional gastrointestinal complaints, Denies abdominal pain, Denies melena, Denies hematochezia, Denies change in bowel habits, Denies change in stool character and Reports nausea Genitourinary: Genitourinary: Denies hematuria, Denies urinary frequency, Denies dysuria, Denies urinary incontinence, Denies urinary hesitancy and Denies urinary urgency Musculoskeletal: Musculoskeletal: Reports no additional musculoskeletal complaints, Denies numbness and Denies tingling Neurologic: Reports dizziness, Denies loss of vision, Denies numbness and Denies tingling Psychiatric: Psychiatric: Reports no additional psychiatric complaints Endocrine: Endocrine: Reports no additional endocrine complaints Hematologic/Lymphatic: Hematologic/Lymphatic: Reports no additional hematologic/lymphatic complaints Allergic/Immunologic: Allergic/Immunologic: Reports no additional allergic/immunologic complaints PMFSH Past Medical History Attestation statement: The following information was validated with the patient. Source: old records reviewed and nursing notes reviewed Medical History Bursitis of knee Poorly-controlled hypertension Social History Social History Advance Directives: No Advance Directives Information Provided: Yes service: No Physical Exam ED Vital Signs: Vital Signs - 24 hr 08/18/22 16:24 Temperature 98.6 F Pulse Rate 82 Respiratory Rate 18 Blood Pressure 138/97 H Pulse Oximetry 100 Oxygen Delivery Method Room Air BMI result Body Mass Index 29.9 Const General: cooperative, no acute distress, alert and awake Nutritional Appearance: well nourished Orientation/consciousness: patient oriented x3 Limitations: no limitations HENMT Head: Yes normal to inspection and Yes atraumatic Ears: hearing grossly normal bilaterally and external ears normal General nose exam: Normal external nose present, no nasal discharge noted and no epistaxis Face and sinus: Yes normal facial exam, No abrasion and No laceration Mouth: Normal oral and palatal mucosa present, no drooling and no muffled voice Eyes General: appearance normal, both eyes and all related structures Periorbital: periorbital findings normal Eyelids: Yes eyelids normal Conjunctivae: conjunctivae normal Pupils: Equal, round and reactive pupils present EOM: EOMs intact bilaterally Neck Neck: Yes normal visual inspection, Yes full ROM and Yes no lymphadenopathy Chest Chest palpation & inspection: normal inspection of the chest Resp Effort & Inspection: normal respiratory effort and able to speak in complete sentences Auscultation: clear to auscultation bilaterally Cardio Rate: regular rate Rhythm: regular rhythm GI Inspection: Yes normal to inspection Palpation (GI): Soft to palpation, not firm, nontender, no guarding and not rigid Neuro General: patient oriented x3 and moves all extremities Cranial nerves: Yes Equal, round and reactive pupils present Cognition (Neuro): normal cognition Motor exam (neuro): 5/5 motor strength present throughout Sensory Exam: Normal double simultaneous stimulation for sensation Coordination: [id number] test normal Extrem General: Yes normal to inspection, Yes full ROM and Yes capillary refill normal Psych Appearance: grossly normal Mental Status: mental status grossly normal Affect: normal affect Attitude: cooperative Thought process: Normal thought process present Thought content: Normal thought content present Insight: Good insight present (Psych) Course Course Course Narrative: RME performed by Mickie Edwards PA-C. Patient is a 51 year old female presenting to the emergency department with dizziness and nausea. Patient states that 2 weeks ago she had her thyroid removed and was not given any thyroid medications. Labs and EKG ordered. Patient placed back in the waiting room pending results and availability. Medical Decision Making Medical Decision Making [facility] Narrative: Patient is a 51 year old assigned female at with a history of recent thyroidectomy presenting to the emergency department today with nausea, dizziness, and body aches. Patient's physical exam was unremarkable. Patient's blood work was unremarkable. Patient's influenza test was positive. I explained my physical exam findings as well as all test results to the patient. I answered all questions asked by the patient. I stressed the importance of the patient taking her medication as prescribed. I stressed the importance of the patient following up with her primary care provider. I stressed the importance of the patient returning to the emergency department immediately if her symptoms were to worsen or if she were to develop any dizziness, shortness of breath, difficulty breathing, chest pain, blurry vision, loss of vision, nausea, vomiting, abdominal pain, fever, chills, back pain, or any other complaints. Patient verbalized agreement and understanding with this treatment plan and discharge. Differential Diagnosis Differential Diagnoses: The differential diagnosis associated with the presentation includes Influenza Lab Data MDM Lab Attestation statement: I reviewed the patient's lab results. Result Diagrams: 08/18/22 16:39 08/18/22 16:39 Labs: Lab Results 08/18/22 08/18/22 08/18/22 Range/Units 16:39 16:39 16:39 WBC 4.6 L (4.8-10.8) X10*3/uL RBC 5.04 (4.20-5.50) X10*6/uL Hgb 11.4 L (12.0-16.0) g/dl Hct 37.9 (37.0-47.0) % MCV 75.2 L (80.0-98.0) fL MCH 22.6 L (27.0-33.0) pg MCHC 30.1 L (31.0-35.0) g/dl RDW 17.3 H (11.0-16.0) % Plt Count 241 (160-400) X10*3/uL MPV 11.0 (9.4-12.3) fL Immature Gran % (Auto) 0.4 (0.0-0.4) % Neut % (Auto) 61.5 (45-73) % Lymph % (Auto) 23.4 (20-40) % [place] % (Auto) 13.9 H (2-11) % Eos % (Auto) 0.4 (0-4) % Baso % (Auto) 0.4 (0-2) % Lymph # (Auto) 1.1 L (1.2-4.9) X10*3/uL [place] # (Auto) 0.6 (0.1-1.2) X10*3/uL Eos # (Auto) 0.0 (0.0-0.4) X10*3/uL Baso # (Auto) 0.0 (0.0-0.2) X10*3/uL Abs Immat Gran (auto) 0.02 (0.00-0.03) X10*3/uL Absolute Neuts (auto) 2.8 (2.0-8.3) x10*3/uL Absolute Nucleated RBC 0.000 (0.0-0.012) X10*3/uL Nucleated RBC % (auto) 0.0 (0.0-0.2) /100WBC Sodium 135 (135-145) mmol/L Potassium 3.3 D (3.3-5.1) mmol/L Chloride 103 (96-108) mmol/L Carbon Dioxide 24 (22-29) mmol/L Anion Gap 11 L (12-20) BUN 9 (9-16) mg/dL Creatinine 1.00 (0.5-1.4) mg/dL Estim Creat Clear Calc 74.5 Estimated GFR 59 Random Glucose 87 (60-115) mg/dL Calcium 11.1 H D (8.4-10.2) mg/dL Magnesium 2.2 (1.6-2.6) mg/dL Total Bilirubin 0.5 (0.0-1.0) mg/dL AST 27 (5-31) U/L ALT 17 (0-31) U/L Alkaline Phosphatase 175 H (39-117) U/L Total Protein 7.6 (6.5-8.0) g/dL Albumin 4.2 (3.5-5.0) g/dL TSH 0.33 (0.32-4.0) uIU/mL Influenza Type A (PCR) POSITIVE A (Negative) Influenza Type B (PCR) NEGATIVE (Negative) RSV RNA Qual (PCR) NEGATIVE (Negative) SARS-CoV-2 RNA (RT-PCR) NEGATIVE (Negative) Discharge Plan Discharge Clinical Impression: Influenza Patient Disposition: Home, Self-Care Instructions: Influenza (ED) Additional Instructions: Follow up with your primary care provider. Return to the emergency department immediately if your symptoms worsen or if you develop any dizziness, shortness of breath, difficulty breathing, chest pain, blurry vision, loss of vision, nausea, vomiting, abdominal pain, fever, chills, back pain, or any other complaints. Prescriptions: New ondansetron 4 mg tablet,disintegrating 4 mg PO Q8H 3 Days Qty: 9 0RF No Action losartan 50 mg tablet 1 tab PO DAILY famotidine 40 mg tablet 1 tab PO DAILY PRN (Reason: Acid Reflux) omeprazole 40 mg capsule,delayed release(DR/EC) 1 cap PO DAILY Referrals: Jeanmarie Drake MD [Primary Care Provider] - Stand Alone Forms: Work/School Release Interventions: ED Discharge Assessment Last Done: 08/18/22 18:32 Discharge Date/Time: 08/18/22 18:42 Print Language: Spanish
[2022-08-18 16:48] LABS: MANUAL DIFF FLAG NO
[2022-08-18 17:01] LABS: Basophils Percent Auto 0.4 % (0-2); Eosinophils Percent Auto 0.4 % (0-4); Hematocrit 37.9 % (37.0-47.0); Hemoglobin 11.4 g/dl (12.0-16.0); Imm Gran Abs Auto 0.02 X10*3/uL (0.00-0.03); Imm Gran Pct Auto 0.4 % (0.0-0.4); Lymphocytes Absolute Auto 1.1 X10*3/uL (1.2-4.9); Lymphocytes Percent Auto 23.4 % (20-40); Mean Corpuscular HGB Conc 30.1 g/dl (31.0-35.0); Mean Corpuscular Hemoglobin 22.6 pg (27.0-33.0); Mean Corpuscular Volume 75.2 fL (80.0-98.0); Monocytes Absolute Auto 0.6 X10*3/uL (0.1-1.2); Monocytes Percent Auto 13.9 % (2-11); Neutrophils Absolute Auto 2.8 x10*3/uL (2.0-8.3); Neutrophils Percent Auto 61.5 % (45-73); Platelet Count 241 X10*3/uL (160-400); Red Blood Count 5.04 X10*6/uL (4.20-5.50); Red Cell Distribution Width 17.3 % (11.0-16.0); White Blood Count 4.6 X10*3/uL (4.8-10.8)
[2022-08-18 17:14] LABS: Alanine Aminotransferase 17 U/L (0-31); Albumin Level 4.2 g/dL (3.5-5.0); Alkaline Phosphatase 175 U/L (39-117); Anion Gap 11 (12-20); Aspartate Amino Transferase 27 U/L (5-31); Bilirubin Total 0.5 mg/dL (0.0-1.0); Blood Urea Nitrogen 9 mg/dL (9-16); Calcium 11.1 mg/dL (8.4-10.2); Carbon Dioxide 24 mmol/L (22-29); Chloride 103 mmol/L (96-108); Creatinine Clr Calc Pharmacy 74.5; Estimated Glomerular Filt Rate 59; Glucose Random 87 mg/dL (60-115); Magnesium 2.2 mg/dL (1.6-2.6); Potassium 3.3 mmol/L (3.3-5.1); Sodium 135 mmol/L (135-145); Total Protein 7.6 g/dL (6.5-8.0)
[2022-08-18 17:30] LABS: TSH reflex Free T4 0.33 uIU/mL (0.32-4.0)
[2022-08-18 17:35] LABS: Influenza A PCR POSITIVE (Negative); Influenza B PCR NEGATIVE (Negative); Resp Syncy Virus RNA Qual PCR NEGATIVE (Negative); SARS COV2 PCR INHOUSE NEGATIVE (Negative)
--- OUTSIDE RECORDS SUMMARY | 2022-08-18 18:36 | XMS_ITS | Encounter Summary ---
:1970 Author Care Team Providers Name Role Phone Jessica Weiner Cloth Winder [phone] Reason for Visit hospital follow up Assessment and Plan 1. Chronic bronchitis will set up with CT for lung disease ? CT, chest, w/o contrast 2. Primary hyperparathyroidism slotted for surgery with Dr. Santiago 3. Pain in pelvis will set up with US pelvis due to ? US, pelvis, transabdominal + transvag inal 4. Hypercalcemia monitored now by Dr. Santiago Discussion Note: None recorded.Patient educational handouts: No information available. Plan of Care Reminders Provider Appointments None recorded. ? ? Lab None recorded. ? ? Referral None recorded. ? ? Procedures None recorded. ? ? Surgeries None recorded. ? ? Imaging CT, Chest, W/o Contrast 07/11/2022 [facility] Central Scheduli ng ? US, Pelvis, Transabdominal + 07/11/2022 [facility] Transvaginal Central Scheduli ng Medications Name Start Date ? ? cetirizine 10 mg tablet ? TAKE 1 TABLET BY MOUTH DAILY Dexilant 60 mg capsule, delayed release ? Take 1 capsule every day by oral route for 30 days. famotidine 40 mg tablet ? TAKE 1 TABLET BY MOUTH ONCE DAILY NEEDED lorazepam 0.5 mg tablet ? Take 1 tablet every day by oral route as needed for 3 0 days. losartan 100 mg tablet ? Take 1 tablet every day by oral route for 30 days. sodium fluoride 1.1 % dental gel ? USE BEFORE BEDTIME Medications Administered None recorded. Vitals Height Blood Pressure 5 ft 5.5 in 134/90 mm[Hg] Results Lab Results None recorded. Allergies Code Code System Name Reaction Severity Onset Flexeril ? ? ? 4401893 RxNorm Gluten ? ? ? 83441 RxNorm Lisinopril Dizziness ? ? Shellfish Derived ? ? ? Vicodin ? ? ? Notes: Some allergies listed in Docume nts: #[id number], #[id number], #[id number], #[id number] could not be added to this patient's chart. Pl ease review these documents and add these allergies to the patient's chart manuall y as needed. Problems Name Status Onset Date Source ? Essential Hypertension Active 04/14/2018 ? Vitamin D Deficiency Active 11/10/2018 ? Iron Deficiency Anemia Active 11/10/2018 ? Gastroesophageal Reflux Disease Active 11/10/2018 ? Gastritis Active 11/10/2018 ? Intervertebral Disc Prolapse Active 11/10/2018 ? History of 3 Miscarriages Active 11/10/2018 ? Uterine Leiomyoma Active 12/12/2018 ? Hyperparathyroidism Active 12/12/2018 ? Hypercalcemia Active 12/12/2018 ? History of Calculus of Kidney Active 12/12/2018 ? 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 Cough Active 01/31/2022 ? Stress Active 03/02/2022 ? Primary Hyperparathyroidism Active 07/11/2022 ? Chronic Bronchitis Active 07/11/2022 ? Pain in Pelvis Active 07/11/2022 ? Chronic Cough Active 08/06/2022 ? Procedures Date Name Performed by ? 08/19/2007 Loop Electrosurgical Excision Procedure Information not available ? Laparoscopy Information not avai lable Notes: pelvic and perihepatic adhesion s ? Surgical Treatment of Miscarriage of Inf ormation not available Any Trimester ? Caesarean Section Information not avai lable 07/11/2022 CT, Chest, W/o Contrast [facility] Central Scheduling [address], [place] [id number] (Work Place) 07/11/2022 US, Pelvis, Transabdominal + [facility] Central Scheduling Transvaginal [address], [place] [id number] (Work Place) Vaccine List Vaccine Type influenza, injectable, quadrivalent 07/28/2018 05/09/2021 Social History Tobacco Smoking Status Never Smoker What was the date of your most recent tobacco screening? Do you or have you ever used any other forms of tobacco or n icotine? N Family History Relation Problem Onset Age of Age Notes Mother Hypertensive disorder (No N/A high c hol Information) Father Hypercholesterolemia (No N/A htn Information) Maternal Grandmother Malignant tumor of breast (No N/A (No Notes) Information) Functional Status Unknown. Past Encounters Encounter Date Diagnosis Provider 07/11/2022 Chronic Bronchitis; Pain in Pelvis; Renay Mcknight PA: 6 [place] Primary Hyperparathyroidism; AlbertoCorey Stacy , [place], [place] Hypercalcemia [phone], Ph. History of Present Illness Note: <div>hospital f/u</div><div>
</div><div>the patient reports that she was recently in the hospital due to left knee pain and swelling </div><div>the patient reports that she was found to have hypercalcemia due to hyperparathyroidism </div><div>
</div><div>was supposed to go see ENT, but they scheduled her without telling her and missed it due to that </div><div>discussing with Dr. Santiago </div><div>
</div><div>the patient reports that she will need have ENT check her</div><div>will let us know how it goes </div><div>will defer to Dr. Santiago for this given his is the one recommending the ENT consult </div><div>
</div><div>patient reports unrelated chest tightness, mucus production and chronic cough</div><div>agreed to a CT chest to exam if she has interstitial lung disease </div><div>
</div><div>reports lack of menses for the past year </div><div>probably in menopause but is having a lot of pelvic pain </div><div>no discharge or bleeding </div><div>agreed to work up for uterine hyperplasia, fibroids, etc</div>Review of Systems: ROS as noted in the HPI Review of Systems ? Comprehensive General Adult ROS Reported By: Patient Constitutional: Constitutional: no fever, no night sweats, no significant weight gain, no significant weight loss, no exercise intolerance, no chills, no malaise Cardiovascular: Cardiovascular: no chest betzy n, no arm pain on exertion, no shortness of breath when wal bart, no shortness of breath when lying down, no palpitations, no kn own heart murmur, no ankle swelling Respiratory: Respiratory: no cough, no wh eezing, no shortness of breath, no coughing up blood, no sleep apnea Gastrointestinal: Gastrointestinal: no abdomin al pain, no nausea, no vomiting, no constipation, normal appetit e, no diarrhea, not vomiting blood, no dyspepsia, no GERD Physical Exam ? Brief Cardiology Exam Reported By: Patient Basic Cardio PE: General Appearance in NAD, n ormal general appearance, healthy weight, alert. HEENT: normal thyroid, no bruit, JVP < 6, Kussmaul's sign absent. Lungs: clear to auscultation. Cardio: s1 normal, s2 normal, no murmurs, no romo ps, normal apical impulse. Abdomen: soft, non tender, non disten ded, normal bowel sounds, no bruit, no hepatomegaly, no splenomegal y, no renal mass. Extremities: no edema, pulses 2+. Neurologic: no vi sual disturbances, no weakness in the extremities, no confusion
--- OUTSIDE RECORDS SUMMARY | 2022-08-18 18:36 | XMS_ITS ---
:1970 Author Care Team Providers Name Role Phone KACY NEWSOME Bellstand Attendant [phone] Allergies Code Code System Name Reaction Severity Status Onset Flexeril ? ? Active ? 1796893 RxNorm Gluten ? ? Active ? 81797 RxNorm Lisinopril Dizziness ? Active ? Shellfish Derived ? ? Active ? Vicodin ? ? Active ? Notes: Some allergies listed in Docume nts: #[id number], #[id number], #[id number], #[id number] could not be added to this patient's chart. Pl ease review these documents and add these allergies to the patient's chart manuall y as needed. Medications Name Status Start Date Stop Date ? ? cetirizine 10 mg tablet Active ? Not avai lable cyclobenzaprine 5 mg tablet Completed ? 03/2019 Take 1 tablet 3 times a day by oral route. Dexilant 60 mg capsule, delayed release Active ? Not available Take 1 capsule every day by oral route for 30 days. erythromycin 5 mg/gram (0.5 %) eye ointment Completed ? 10/25/[address] 0[address]5 INCHEST INTO THE RIGHT EYE 3 TIMES A DAY FOR 5 DAYS famotidine 40 mg tablet Active ? Not avai lable TAKE 1 TABLET BY MOUTH ONCE DAILY NEEDED fluconazole 150 mg tablet Completed ? 2019 fluticasone propionate 50 mcg/actuation nasal Completed ? 01/27/2020 spray,suspension iron Completed ? 06/12/2019 qd lansoprazole 30 mg capsule,delayed release Completed ? 03/04/2022 Take 1 capsule twice a day by oral route for 30 days. lisinopril 10 mg tablet Completed ? 05/13/20 19 lorazepam 0.5 mg tablet Active ? Not avai lable losartan 100 mg tablet Active ? Not avail able Take 1 tablet every day by oral route for 30 days. losartan 25 mg tablet Active ? Not availa ble TAKE 1 TABLET BY MOUTH TWICE DAILY losartan 50 mg tablet Completed ? 07/11/2022 TAKE 1 TABLET BY MOUTH ONCE DAILY nitrofurantoin monohydrate/macrocrystals 100 mg capsule Complete d ? 05/13/2019 omeprazole 20 mg tablet,delayed release Completed ? 03/02/2022 Take 1 tablet twice a day by oral route for 30 days. omeprazole 40 mg capsule,delayed release Completed ? 03/02/2022 TAKE 1 CAPSULE BY MOUTH ONCE DAILY ondansetron 4 mg disintegrating tablet Completed ? 03/02/2022 DISSOLVE 1 TABLET IN MOUTH EVERY 6 HOURS NEEDED FOR NAUSEA ondansetron HCl 8 mg tablet Completed ? 01/17 oxycodone-acetaminophen 5 mg-325 mg tablet Completed ? 10/25/2021 pantoprazole 40 mg tablet,delayed release Completed ? 10/25/2021 Farris' Liqui-Gels 100 mg capsule Completed ? 01/27/2020 prednisone 10 mg tablet Completed ? 03/02/20 22 take 4 tablets for 3 days take 3 tablet s for 2 daystake 2 tablets for 2 daystake 1 tablet for 2 days Prilosec OTC 20 mg tablet,delayed release Completed ? 06/12/2019 Take 1 tablet twice a day by oral route for 30 days. sertraline 50 mg tablet Completed ? 01/27/20 20 Take 1 tablet by mouth once daily sodium fluoride 1.1 % dental gel Active ? Not available USE BEFORE BEDTIME Tessalon Perles 100 mg capsule Completed ? 0 10/25/2021 Take 1 capsule 3 times a day by oral route for 14 days. tramadol 50 mg tablet Completed ? 10/25/2021 TAKE 1 TABLET BY MOUTH EVERY 6 HOURS FOR 7 DAYS Tri-Sprintec (28) 0.18 mg(7)/0.215 mg(7)/0.25 mg(7)-35 Completed ? 01/27/2020 mcg tablet Vitamin D3 25 mcg (1,000 unit) capsule Completed ? 06/12/2019 Take 1 capsule twice a day by oral route. Zithromax Z-Yousuf 250 mg tablet Completed ? TAKE 2 TABLETS (500 MG) BY ORAL ROUTE O NCE DAILY FOR 1 DAY THEN 1 TABLET (250 MG) BY ORAL ROUTE ONCE DAILY FOR 4 DAYS Problems Name Status Onset Date Source ? [...] ? Caesarean Section Information not avai lable 04/14/2018 MRI, Lumbar Spine, W/o Contrast [facility] ([facility] [address], [place] [address] (Work Place) 04/14/2018 XR, Lumbosacral Spine [facility] ([facility]uling Dept[facility] [address] [place] [address] (Work [address]) 11/24/2018 XR, Cervical Spine [facility] ([facility] [address], [place] [address] (Work Place) 11/28/2018 US, Neck [facility] ([facility] Dept) [address], [place] [address] (Work Place) 12/02/2018 US, Thyroid [facility] ([facility] Dept) [address] [place] [address] (Work Place) 12/09/2018 US, Thyroid [facility] (Scheduling Dept) [address] [place] [address] (Work Place) 04/24/2019 XR, Chest, 2 View [facility] ([facility] [address] [place] [address] (Work Place) 04/24/2019 CT, Abdomen + Pelvis, W/ Contrast [facility] (Scheduling Dept) [address], [place] [address] (Work Place) 11/02/2019 Exercise Stress Test [facility] ([facility]) [address], [place] [address] (Work Place) 01/27/2020 XR, Lumbar Spine [facility] (Imaging) [address] [place] [address] (Work Place) 01/27/2020 MRI, Lumbar Spine, W/o Contrast [facility] [address] [place] [address] (Work Place) 02/04/2020 MRI, Lumbar Spine, W/o Contrast [facility] Central Scheduling [address] [place] [address] (Work Place) 10/25/2021 XR, Chest, 2 View [facility] ([facility] Dept[facility] [address], [place] [address] (Work Place) 10/25/2021 Exercise Stress Test [facility] (Scheduling Dept) [address], [place] [address] (Work Place) 10/25/2021 US, Echocardiogram [facility] (Scheduling Dept) [address], [place] [address] (Work Place) 01/17/2022 XR, Chest, 2 View [facility] (Scheduling Dept) [address] [place] [address] (Work Place) 07/11/2022 CT, Chest, W/o Contrast [facility] Central Scheduling [address] [place] [address] (Work Place) 07/11/2022 US, Pelvis, Transabdominal + [facility] Central Scheduling Transvaginal [address] [place] [address] (Work Place) Results Lab Results Date Name Specimen Result Interpretation Description Value Range Status Address ? 04/28/2019 Culture, Urine ? No observation ? ? ? [facility] recorded. [facility] : Darryn Caba 04/28/2019 Urinalysis, ? Leukocytes Trace ? ? [facility] Internal Dipstick Medicine : [address],[place] ? ? ? Nitrite negative ? ? [facility] Internal Medicine: [address],[place] ? ? ? Urobilinogen .2 ? ? [facility] Internal Medicine: [address],[place] ? ? ? Protein Negative ? ? [facility] Internal Medicine: [address] ? ? ? Ph 6.5 ? ? [facility] Int ernal Medicine: [address],[place] ? ? ? Blood Negative ? ? [facility] I nternal Medicine: [address],[place] ? ? ? Specific Ashley 1.020 ? ? [facility] Internal Medicine: [address],[place] ? ? ? Ketone Trace ? ? [facility] In ternal Medicine: [address],[place] ? ? ? Bilirubin Negative ? ? [facility] an Internal Medicine: [address] ? ? ? Glucose Negative ? ? [facility] Internal Medicine: [address] ? ? ? Appearance Clear ? ? [facility] n Internal Medicine: [address] ? ? ? Color Yellow ? ? [facility] Int ernal Medicine: [address] 04/27/2019 CBC W/ Diff ? No observation ? ? ? [facility]. [facility] n 04/27/2019 CMP, Serum or ? No observation ? ? ? [facility] Plasma recorded. [facility] [address] [facility] n 12/05/2018 CMP, Serum or ? No observation ? ? ? [facility] Plasma recorded. [facility] [address] [facility] n 11/26/2018 Calcium, ? No observation ? ? ? [facility] Ionized, Blood recorded. [facility] ([facility] ): [address] [facility] n 11/26/2018 PTH ? No observation ? ? ? [facility] (Parathyroid recorded. H ospital Lab Hormone), Service s Intact, Serum (Ou tpatient): 30 or Plasma [facility] 11/26/2018 Cbc ? No observation ? ? ? [facility] recorded. [facility] ([facility]): [address] [facility] n 11/26/2018 Iron + TIBC + ? No observation ? ? ? [facility] Ferritin, recorded. Hosp ital Lab Serum Services ([facility]): 30 [facility] 11/26/2018 Phosphorus, ? No observation ? ? ? [facility] Ver[facility] Serum or recorded. Hospi kayli Lab Plasma Services ([facility] ): 30 [facility] 11/26/2018 Vitamin D, ? No observation ? ? ? [facility] Verduzco 25-Hydroxy, recorded. Ho spital Lab Total, Serum Serv ices (): 30 [facility] n Past Encounters Encounter Date Diagnosis Provider 07/11/2022 Chronic Bronchitis; Pain in Pelvis; MARIANNE Ellsworth: [address] Primary Hyperparathyroidism; [place], [place] Hypercalcemia [phone], Ph. [phone] 03/02/2022 Active or Passive Immunization; Jeanmarie Drake, DO: [address] [place] Essential Hypertension; [facility] [place] Gastroesophageal Reflux Disease; [phone], Ph. Hyperparathyroidism; Stress 10/25/2021 Essential Hypertension; Jeanmarie farley, DO: [address] [place] Hyperparathyroidism; Depressive [place], [place] Disorder; Chest Pain; Lipoma of Back [phone], Ph. 05/26/2021 Abrasion of Cornea of Right Eye; Cough R achel Lenny Mcknight PA: [address] [facility] [place] [address], Ph. Social History Tobacco Smoking Status Never Smoker Vaccine List Vaccine Type influenza, injectable, quadrivalent 07/28/2018 05/09/2021 Plan of Care Reminders Provider Appointments None recorded. ? ? Lab None recorded. ? ? Referral None recorded. ? ? Procedures None recorded. ? ? Surgeries None recorded. ? ? Imaging None recorded. ? ? Vitals 07/11/2022 11:45AM Hospital F/U Height Blood Pressure 5 ft 5.5 in 134/90 mm[Hg] 03/02/2022 12:00PM FOLLOW UP 15 Height Weight BMI Blood Pressure 5 ft 5.5 in 192.2 lbs 31.5 kg/m2 140/92 mm[Hg] 10/25/2021 12:00PM NEW PROBLEM 15 Height Weight BMI Blood Pressure 5 ft 5.5 in 195 lbs 32 kg/m2 140/80 mm[Hg] 03/01/2020 09:30AM FOLLOW UP 15 Height Weight BMI Blood Pressure 5 ft 5.5 in 194.3 lbs 31.8 kg/m2 130/90 mm[Hg] 01/27/2020 02:45PM NEW PROBLEM 15 Height Weight BMI Blood Pressure 5 ft 5.5 in 194.3 lbs 31.8 kg/m2 140/100 mm[Hg] 11/02/2019 10:00AM FOLLOW UP 15 Height Weight BMI Blood Pressure 5 ft 5.5 in 194.6 lbs 31.9 kg/m2 130/70 mm[Hg] 06/12/2019 09:45AM FOLLOW UP 15 Height Weight BMI Blood Pressure 5 ft 5.5 in 189.1 lbs 31 kg/m2 112/80 mm[Hg] 05/13/2019 09:15AM FOLLOW UP 15 Height Weight BMI Blood Pressure 5 ft 5.5 in 190.7 lbs 31.3 kg/m2 124/94 mm[Hg] 04/28/2019 11:15AM FOLLOW UP 15 Height Blood Pressure 5 ft 5.5 in 140/100 mm[Hg] 04/24/2019 10:15AM FOLLOW UP 15 Height Weight BMI Blood Pressure 5 ft 5.5 in 193.1 lbs 31.6 kg/m2 128/98 mm[Hg] 12/09/2018 01:45PM FOLLOW UP 15 Height Weight BMI Blood Pressure 5 ft 5.5 in 188 lbs 30.8 kg/m2 136/92 mm[Hg] 11/24/2018 09:15AM FOLLOW UP 15 Height Weight BMI Blood Pressure 5 ft 5.5 in 185.1 lbs 30.3 kg/m2 128/70 mm[Hg] 04/14/2018 12:00PM SDV Height Weight BMI Blood Pressure 5 ft 5.5 in 188.4 lbs 30.9 kg/m2 130/90 mm[Hg]
== END 2022-08-18 18:42 | disposition home or self-care (01) ==
LOC: HO.ED 18:35
PROVIDERS: Physician Assistant Medical; Emergency Provider Internal Medicine; PCP Internal Medicine
DX: J11.1 Influenza due to unidentified influenza virus with other respiratory manifestations (principal); I10 Essential (primary) hypertension; Z79.899 Other long term (current) drug therapy; Z20.822 Contact with and (suspected) exposure to COVID-19
CPT/HCPCS: 0241U; 36415; 80053; 83735; 84443; 85025; 93005; 99283

== ENCOUNTER 2023-01-05 09:55 | Outpatient (REF) | payer MEDICAID, SELFPAY ==
--- NOTE | ~2023-01-05 | MR_ITS ---
EXAMINATION: MR BRAIN WITHOUT CONTRAST CLINICAL INFORMATION: Right-sided facial numbness, paralysis right arm COMPARISON: None. TECHNIQUE: MRI of the brain was obtained using routine sequences without contrast. FINDINGS: Limited assessment of the bilateral cranial nerves VII and VIII complexes on this nondedicated examination without gross abnormality. No acute infarct. No acute intracranial hemorrhage or extra-axial fluid collection. The ventricles and sulci are normal in size and configuration without significant volume loss or hydrocephalus. Mild burden of nonspecific supratentorial white matter disease with scattered T2 FLAIR hyperintense foci in the subcortical and periventricular white matter. A few prominent perivascular spaces are seen within the right hemisphericNo mass lesion, mass effect, or herniation pattern. Normal intracranial arterial and dural venous sinus flow voids. Normal appearance of the midline structures. The orbits are grossly unremarkable. Mild bilateral maxillary sinus and ethmoid air cell mucosal disease with retention cysts/polyps in the bilateral maxillary sinuses. Small right mastoid effusion. Mild adenoidal tonsillar hyperplasia. Normal marrow signal. Reversal of the normal cervical lordosis. MR/MR head/brain wo con IMPRESSION: No acute intracranial process. Limited assessment of the bilateral cranial nerves VII and VIII complexes on this nondedicated examination without gross abnormality. Mild burden of supratentorial white matter disease nonspecific however underlying demyelinating disease is not conclusively ruled out and can be correlated with CSF fluid sampling, as clinically warranted. Retention cysts/polyps in the bilateral maxillary sinuses.
== END 2023-01-05 09:56 | disposition home or self-care (01) ==
LOC: HO.MRI 09:55
PROVIDERS: PCP Internal Medicine; Visit Provider Physician Assistant
DX: G45.8 Other transient cerebral ischemic attacks and related syndromes (principal)
CPT/HCPCS: 70551

== ENCOUNTER → 2023-07-22 11:00 | Outpatient (BNV) | payer MEDICAID, SELFPAY | PROVIDERS: PCP Internal Medicine; Visit Provider Radiology Diagnostic Radiology | DX: R92.323 Mammographic fibroglandular density, bilateral breasts (principal); R92.313 Mammographic fatty tissue density, bilateral breasts | CPT/HCPCS: 76642; 77062; 77066 ==

== ENCOUNTER 2023-07-22 11:10 | Outpatient (REF) | payer MEDICAID, SELFPAY ==
--- NOTE | ~2023-07-22 | MM_ITS ---
EXAMINATION: MM DIAGNOSTIC DIGITAL BREAST TOMOSYNTHESIS, BILATERAL US BREAST LIMITED, BILATERAL MAMMOGRAPHY: CLINICAL INFORMATION: Bilateral breast pain, worst in the left breast upper outer quadrant. COMPARISON: Mammography: Baseline exam. No prior. TECHNIQUE: Digital breast tomosynthesis is performed in both the craniocaudal and mediolateral oblique views along with computer-aided detection (CAD). Synthesized 2D images are generated from the tomosynthesis. In addition a second left full-field 3-D MLO view was obtained. FINDINGS: There are scattered areas of fibroglandular density (ACR BI-RADS breast composition Category b). There are no suspicious masses, suspicious grouped calcifications, or areas of architectural distortion in either breast. The parenchymal pattern is stable from prior exams. There is no mammographic correlate to the regions of bilateral breast pain. ULTRASOUND: CLINICAL INFORMATION: Bilateral breast pain, worst in the left breast upper outer quadrant. COMPARISON: None TECHNIQUE: Targeted sonographic evaluation was performed using a high frequency linear transducer. Attention to both breasts in the regions of breast pain was performed, with special attention to the upper outer quadrant left breast. Selected archived documentation. FINDINGS: RIGHT BREAST: There is a mixture of fatty and fibroglandular tissue. No suspicious mass is seen. There is no pathologic acoustic shadowing. There are no cystic abnormalities. LEFT BREAST: There is a mixture of fatty and fibroglandular tissue. No suspicious mass is seen. There is no pathologic acoustic shadowing. There are no cystic abnormalities. There is no ultrasonographic correlate to the regions of breast pain in either breast. MM/MM tomosynthesis diagnostic BI IMPRESSION: There are no findings suspicious for malignancy in either breast. There are no mammographic or sonographic findings which correlate with the regions of breast pain in either breast. Recommend clinical management of these symptoms. Otherwise, recommend resuming routine screening bilateral mammography in one year. OVERALL ASSESSMENT: Mammography: BI-RADS 1 - Negative Ultrasound: BI-RADS 1 - Negative RECOMMENDATION: 1 year F/U This patient's information was entered into a reminder system with a target due date for their next mammogram.
== END 2023-07-22 11:11 | disposition home or self-care (01) ==
LOC: HO.MAMMO 11:10
PROVIDERS: PCP Internal Medicine; Visit Provider Internal Medicine
DX: N64.4 Mastodynia (principal)
CPT/HCPCS: 76642; 77062; 77066

== ENCOUNTER 2023-08-16 04:11 | Emergency (ER) | payer MEDICAID, SELFPAY ==
--- NOTE | 2023-08-16 | ECG_ITS ---
Test Reason : CHEST PAIN Blood Pressure : / mmHG Vent. Rate : 071 BPM Atrial Rate : 071 BPM P-R Int : 184 ms QRS Dur : 092 ms QT Int : 392 ms P-R-T Axes : 037 021 017 degrees QTc Int : 425 ms Normal sinus rhythm Normal ECG When compared with ECG of 18-AUG-2022 16:30, No significant change was found Referred By: Generic ED Physician Electronically Signed By:LEAH EM
--- NOTE | ~2023-08-16 | XR_ITS ---
EXAMINATION: XR SHOULDER, RIGHT CLINICAL INFORMATION: Pain COMPARISON: None available. TECHNIQUE: AP external rotation, Grashey, scapular Y, and axillary views of the right shoulder. FINDINGS: The bones and soft tissues are normal. No fracture. Glenohumeral and acromioclavicular alignment is anatomic with normal joint space. No abnormal soft tissue calcifications. XR/XR shoulder RT min 2V IMPRESSION: No fracture or dislocation.
[2023-08-16 04:17] VITALS: BP 199/114; PULSE 73; RESP 20; TEMP 36.9; O2SAT 100; BMI 32.8
[2023-08-16 04:26] VITALS: BP 201/128
--- NOTE | 2023-08-16 04:26 | PC.NURSE ---
pt BP high took twice, pt has HTN takes medication daily however has not taken since yesterday AM is due for it soon. provider aware
[2023-08-16] MEDS: LORazepam 1 MG TABLET 2 MG PO (04:44)
[2023-08-16 04:45] LABS: MANUAL DIFF FLAG NO
[2023-08-16 04:51] LABS: Basophils Percent Auto 0.5 % (0-2); Eosinophils Absolute Auto 0.3 X10*3/uL (0.0-0.4); Eosinophils Percent Auto 4.5 % (0-4); Hematocrit 38.2 % (37.0-47.0); Imm Gran Abs Auto 0.02 X10*3/uL (0.00-0.03); Imm Gran Pct Auto 0.3 % (0.0-0.4); Lymphocytes Percent Auto 46.9 % (20-40); Mean Corpuscular HGB Conc 31.4 g/dl (31.0-35.0); Mean Corpuscular Hemoglobin 25.6 pg (27.0-33.0); Mean Corpuscular Volume 81.4 fL (80.0-98.0); Monocytes Absolute Auto 0.5 X10*3/uL (0.1-1.2); Neutrophils Absolute Auto 2.5 x10*3/uL (2.0-8.3); Neutrophils Percent Auto 39.8 % (45-73); Platelet Count 251 X10*3/uL (160-400); Red Blood Count 4.69 X10*6/uL (4.20-5.50); Red Cell Distribution Width 14.6 % (11.0-16.0); White Blood Count 6.4 X10*3/uL (4.8-10.8)
[2023-08-16 05:07] LABS: Alanine Aminotransferase 16 U/L (0-31); Albumin Level 4.2 g/dL (3.5-5.0); Alkaline Phosphatase 120 U/L (39-117); Anion Gap 12 (12-20); Aspartate Amino Transferase 19 U/L (5-31); Bilirubin Total 0.2 mg/dL (0.0-1.0); Blood Urea Nitrogen 14 mg/dL (9-16); Calcium 10.8 mg/dL (8.4-10.2); Carbon Dioxide 21 mmol/L (22-29); Chloride 111 mmol/L (96-108); Creatinine Clr Calc Pharmacy 90.4; Estimated Glomerular Filt Rate > 60; Glucose Random 95 mg/dL (60-115); Sodium 140 mmol/L (135-145); Total Protein 7.7 g/dL (6.5-8.0)
[2023-08-16 05:16] LABS: Troponin-I High Sensitivity < 2.7 ng/L (<3.5-17.0)
[2023-08-16 06:03] VITALS: BP 180/105; PULSE 69; RESP 20; TEMP 36.7; O2SAT 98
[2023-08-16 06:20] VITALS: BP 168/98; PULSE 67; RESP 22; O2SAT 99
--- NOTE | 2023-08-16 07:10 | ED_ITS ---
HPI - General Adult General Chief complaint: General Medical Stated complaint: chest pain Time Seen by Provider: 08/16/23 07:05 Source: patient and old records reviewed Mode of arrival: ambulatory Limitations: no limitations History of Present Illness HPI narrative: 52 yo female with PMH of HTN, hyperparathyroidism, prior R skin cyst removal posterior shoulder blade here with c/o R shoulder pain radiating to chest - she was yelling in pain due to R shoulder hurting starting yesterday. 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 The pain is so bad it radiates to the chest and takes her breath sometimes. She denies fever or known trauma. She has no rash. It hurts to move. She has not had pain like this before. MD complaint: shoulder pain Onset (ago): day(s) (yesterday) Location: right and upper extremity Radiation: other (chest) Severity: moderate Quality: stabbing and aching Pain Consistency: constant Relieving factors: rest Exacerbating factors: movement Associated symptoms: denies other symptoms Treatments prior to arrival: none Related Data Home Medications Medication Instructions Recorded Confirmed famotidine 40 mg tablet 1 tab PO DAILY PRN Acid Reflux 05/22/22 05/22/22 losartan 50 mg tablet 1 tab PO DAILY 05/22/22 05/22/22 omeprazole 40 mg capsule,delayed 1 cap PO DAILY 05/22/22 05/22/22 release Previous Rx's Medication Instructions Recorded ondansetron 4 mg disintegrating 4 mg PO Q8H 3 days #9 tabs 08/18/22 tablet diazepam 5 mg tablet (Valium) 5 mg PO TID PRN muscle spasm #10 08/16/23 tabs lidocaine 5 % topical patch 1 patch topical DAILY #30 ea 08/16/23 Allergies Allergy/AdvReac Type Severity Reaction Status Date / Time celecoxib [From Celebrex] AdvReac Intermediate Swelling Verified 08/18/22 16:24 lisinopril AdvReac Intermediate Swelling Verified 08/18/22 16:24 metoprolol AdvReac Intermediate Swelling Verified 08/18/22 16:24 Review of Systems 2 Review of Systems: Constitutional : No Fever, No Chills ENT/Mouth : No Ear Pain, No Hoarseness, No sore throat Eyes: No Eye Pain, No Swelling, No Redness, No Foreign Body Cardiovascular : No Chest Pain, No SOB Respiratory : No Cough, No Dyspnea Gastrointestinal : No Nausea, No Vomiting, No Diarrhea, No abdominal Pain Genitourinary : No Dysuria, No Hematuria Musculoskeletal : positive joint pain, No Myalgias, No Joint Swelling Skin : No Skin lacerations, No rash Neuro : No Weakness, No Numbness, No Loss of Consciousness, No Dizziness, No Headache Psych : No Anxiety/Panic, No Depression All other systems reviewed and are negative [facility] Past Medical History Attestation statement: The following information was validated with the patient. Source: old records reviewed Medical History Bursitis of knee Poorly-controlled hypertension Social History Social History Smoked in Last 30 Days: No Use of substances other than those prescribed or required for medical reasons: No Advance Directives: No Advance Directives Information Provided: Yes Patient : No service: No Physical Exam ED Vital Signs: Vital Signs - 24 hr 08/16/23 04:17 08/16/23 04:26 08/16/23 06:03 Temperature 98.4 F 98.1 F Pulse Rate 73 69 Respiratory Rate 20 20 Blood Pressure 199/114 H 201/128 H 180/105 H Pulse Oximetry 100 98 Oxygen Delivery Method Room Air Room Air 08/16/23 06:20 Temperature Pulse Rate 67 Respiratory Rate 22 H Blood Pressure 168/98 H Pulse Oximetry 99 Oxygen Delivery Method Room Air BMI result Body Mass Index 32.8 Appearance: Alert. Oriented X3. No acute distress. Eyes: Pupils equal, round and reactive to light. ENT: Pharynx normal. Neck: Normal inspection. Neck supple. CVS: Normal heart rate and rhythm. Pulses normal. Chest: ttp along R pectoralis muscle Respiratory: No respiratory distress. Breath sounds normal. Abdomen: Soft and non-tender. Skin: Skin warm and dry. Normal skin color. Normal skin turgor. Extremities: No lower extremity edema. R shoulder ttp along joint no effusion noted no redness no warmth rail director intact and distal pulse 2+ SILT BCR in all digits Neuro: Oriented X 3. No motor deficit. No sensory deficit. 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 At this time will need EKG, trop x 1. She is PERC negative - at this time seems MSK in nature will need xray as well. start on pain control and rest. Suspect tendinitis vs strain. She is NV intact. Differential Diagnosis Differential Diagnoses: The differential diagnosis associated with the presentation includes MSK pain, strain, atypical chest pain Admission/Observation Consideration of admission/observation: Escalation of care including admission/observation considered EKG and trop flat with 6 hours of pain pain improved with PO muscle relaxer NV intact. stable for outpatient management Lab Data [facility] Lab Attestation statement: I reviewed the patient's lab results. 08/16/23 04:42 08/16/23 04:42 Labs: Lab Results 08/16/23 Range/Units 04:42 WBC 6.4 (4.8-10.8) X10*3/uL RBC 4.69 (4.20-5.50) X10*6/uL Hgb 12.0 (12.0-16.0) g/dl Hct 38.2 (37.0-47.0) % MCV 81.4 (80.0-98.0) fL MCH 25.6 L (27.0-33.0) pg MCHC 31.4 (31.0-35.0) g/dl RDW 14.6 (11.0-16.0) % Plt Count 251 (160-400) X10*3/uL MPV 11.0 (9.4-12.3) fL Immature Gran % (Auto) 0.3 (0.0-0.4) % Neut % (Auto) 39.8 L (45-73) % Lymph % (Auto) 46.9 H (20-40) % Vermilion % (Auto) 8.0 (2-11) % Eos % (Auto) 4.5 H (0-4) % Baso % (Auto) 0.5 (0-2) % Lymph # (Auto) 3.0 (1.2-4.9) X10*3/uL Vermilion # (Auto) 0.5 (0.1-1.2) X10*3/uL Eos # (Auto) 0.3 (0.0-0.4) X10*3/uL Baso # (Auto) 0.0 (0.0-0.2) X10*3/uL Abs Immat Gran (auto) 0.02 (0.00-0.03) X10*3/uL Absolute Neuts (auto) 2.5 (2.0-8.3) x10*3/uL Absolute Nucleated RBC 0.000 (0.0-0.012) X10*3/uL Nucleated RBC % (auto) 0.0 (0.0-0.2) /100WBC Sodium 140 (135-145) mmol/L Potassium 4.0 D (3.3-5.1) mmol/L Chloride 111 H (96-108) mmol/L Carbon Dioxide 21 L (22-29) mmol/L Anion Gap 12 (12-20) BUN 14 (9-16) mg/dL Creatinine 0.85 (0.5-1.4) mg/dL Estim Creat Clear Calc 90.4 Estimated GFR > 60 Random Glucose 95 (60-115) mg/dL Calcium 10.8 H (8.4-10.2) mg/dL Total Bilirubin 0.2 (0.0-1.0) mg/dL AST 19 (5-31) U/L ALT 16 (0-31) U/L Alkaline Phosphatase 120 H (39-117) U/L Troponin I High Sens < 2.7 (<3.5-17.0) ng/L Total Protein 7.7 (6.5-8.0) g/dL Albumin 4.2 (3.5-5.0) g/dL Independent Interpretation I performed an independent interpretation of an: EKG and Plain X-Ray (no fx) Interpretation: Rate: 71 Rhythm: NSR Kevil: normal Normal P waves. Normal AYDE. Normal QRS complex. ST T wave : no ZEE, inverted t waves in V1-V2 qTC: normal prior studies: no change from 2021 The study has been interpreted contemporaneously by me. . Radiology Impression Discussion of test interpretation with radiology: I have reviewed the radiologist's reading. External Record Review External record reviewed: Inpatient record Prescription Management I considered prescription management with: Pain Medication and Other Discharge Plan Discharge Clinical Impression: Acute shoulder pain Qualifiers: Laterality: right Qualified Code(s): M25.511 - Pain in right shoulder Patient Disposition: Home, Self-Care Instructions: Arthralgia (ED), Shoulder Pain (ED) Additional Instructions: return for worsening pain, redness, swelling, numbness, tingling or any other concerns, xray was normal, blood work for heart was normal follow up with doctor if not better by next week for further workup including MRI Prescriptions: New lidocaine 5 % adhesive patch,medicated 1 patch topical DAILY Qty: 30 0RF Rx Instructions: leave on most painful area for up to 12 hrs diazepam [Valium] 5 mg tablet 5 mg PO TID PRN (Reason: muscle spasm) Qty: 10 0RF Rx Instructions: partial fill is okay No Action losartan 50 mg tablet 1 tab PO DAILY famotidine 40 mg tablet 1 tab PO DAILY PRN (Reason: Acid Reflux) omeprazole 40 mg capsule,delayed release(DR/EC) 1 cap PO DAILY ondansetron 4 mg tablet,disintegrating 4 mg PO Q8H 3 Days Qty: 9 0RF Stand Alone Forms: Work/School Release
--- NOTE | 2023-08-16 09:28 | PC.NURSE ---
PT DRIVING HOME HERSELF, MORPHINE HELD, PRESCRIPTIONS SENT
== END 2023-08-17 06:05 | disposition home or self-care (01) ==
PROVIDERS: Emergency Provider Emergency Medicine; PCP Internal Medicine
DX: M25.511 Pain in right shoulder (principal); R07.9 Chest pain, unspecified; I10 Essential (primary) hypertension; E21.3 Hyperparathyroidism, unspecified
CPT/HCPCS: 36415; 73030; 80053; 84484; 85025; 93005; 99283; 99284

== ENCOUNTER → 2023-08-16 04:20 | Outpatient (BNV) | payer MEDICAID, SELFPAY | PROVIDERS: Emergency Provider Emergency Medicine; PCP Internal Medicine; Visit Provider Internal Medicine | DX: R07.9 Chest pain, unspecified (principal) | CPT/HCPCS: 93010 ==

== ENCOUNTER 2023-08-28 10:20 | Outpatient (AMB) | payer MEDICAID, SELFPAY ==
[2023-08-28 10:25] VITALS: BMI 32.8
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
== END 2023-08-28 10:46 | disposition home or self-care (01) ==
PROVIDERS: PCP Internal Medicine; Visit Provider Orthopaedic Surgery
DX: M54.2 Cervicalgia (principal)
CPT/HCPCS: 99202

== ENCOUNTER → 2023-08-28 10:20 | Outpatient (BNVA) | payer MEDICAID, SELFPAY | PROVIDERS: PCP Internal Medicine; Visit Provider Orthopaedic Surgery | DX: M54.2 Cervicalgia (principal) | CPT/HCPCS: 99202 ==

== ENCOUNTER 2023-09-02 14:04 | Outpatient (REF) | payer MEDICAID, SELFPAY ==
--- NOTE | ~2023-09-02 | MR_ITS ---
EXAMINATION: MR CERVICAL SPINE WITHOUT CONTRAST CLINICAL INFORMATION: Neck pain. COMPARISON: None available. TECHNIQUE: Multiplanar, multisequential imaging of the cervical spine was performed without contrast. FINDINGS: VERTEBRAL BODIES AND PARASPINAL SOFT TISSUES: The marrow signal is homogeneous. There is a slight reversal of the normal cervical lordosis. Moderate to severe loss of disc height evident at the C3-C4 level. There is milder disc space narrowing with reduced intradiscal signal from the C4 through the C6 levels. No compression fracture or significant subluxation are seen. The paraspinal soft tissues are normal. The vertebral artery flow-voids are maintained. The imaged portions of the lungs are grossly clear. There is significant mucosal thickening versus retention cysts subtotally opacifying the right maxillary sinus which is otherwise fairly obscured by a saturation band. CERVICOMEDULLARY JUNCTION AND VISUALIZED POSTERIOR FOSSA: The craniovertebral junction and imaged portions of the brain parenchyma appear normal. No cord signal abnormality or syrinx is seen. SPINAL LEVELS: C2-C3: No disc pathology. Mild left-sided facet arthropathy. No central canal stenosis or foraminal narrowing. C3-C4: Significant disc space narrowing and mild diffuse disc bulge without central canal stenosis or foraminal encroachment. C4-C5: Reduced intradiscal signal and shallow, broad-based disc-osteophyte complex mildly impressing upon the ventral cord and thecal sac. No central canal stenosis. Mild left foraminal narrowing. C5-C6: Very mild disc bulge with bilateral uncovertebral joint spurring. No central canal stenosis. Patent neural foramina. C6-C7: Reduced intradiscal signal and shallow disc bulge without central canal stenosis or foraminal narrowing. C7-T1: Well-hydrated normal appearance of the disc. Left-sided facet arthropathy with [id number] foraminal encroachment. MR/MR cervical spine wo con IMPRESSION: 1. Mild reversal of the normal cervical lordosis and mild multilevel cervical spondylosis. Moderate to severe loss of disc height at the C3-C4 level. No focal disc protrusion or central canal stenosis. Broad-based posterior disc bulge mildly impresses upon the ventral cord and thecal sac at the C4-C5 level. 2. Significant mucosal thickening versus retention cysts subtotally opacifying the incompletely visualized right maxillary sinus.
== END 2023-09-02 14:05 | disposition home or self-care (01) ==
LOC: HO.MRI 14:04
PROVIDERS: PCP Internal Medicine; Visit Provider Orthopaedic Surgery
DX: M54.2 Cervicalgia (principal)
CPT/HCPCS: 72141

== ENCOUNTER 2023-09-27 09:09 | Outpatient (AMB) | payer MEDICAID, SELFPAY ==
--- NOTE | 2023-09-27 09:31 | MHC.OFFVIS ---
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 Allergies celecoxib [From Celebrex] Adverse Reaction (Intermediate, Verified 08/28/23 10:30) Swelling lisinopril Adverse Reaction (Intermediate, Verified 08/28/23 10:30) Swelling metoprolol Adverse Reaction (Intermediate, Verified 08/28/23 10:30) Swelling [facility] Medical History (Updated 09/27/23 @ 10:08 by MARIANNE Hickey) Bursitis of knee Poorly-controlled hypertension Surgical History (Updated 08/28/23 @ 10:34 by Kandi Yepez CMA) History of section Social History service: No Assessment & Plan Assessment & Plan (1) Pain of right side of body: Code(s): R52 - Pain, unspecified Plan Dear Dr Mcqueen Thank you for referring Mrs Arias to our office today. 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 It gradually started radiating down her arm into her hand and then down into her whole right side of her body into her leg as well. She does have tingling of both of her hands and feet which is related to some type of neuropathy secondary to hyperparathyroidism. She does not report any specific weakness of the arm other than the fact that it hurts so much to move it that she can not really function with it. There is a significant amount of pain and tenderness over the skin just even manipulating a jacket over it or touching the area. She does not have any symptoms on the left side. She does report some neck pain but it is not the main symptom. The main symptom is the pain around the shoulder, and then the pain going down into the arm. It can be present at nighttime when she lays her head back. But it is also present throughout the day. She generally can not make it go away. It is getting no better. She has not had any specific dedicated treatment other than some medications including baclofen, tramadol. Those things do not seem to be helping either. 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 She is also told that she has possible early stage multiple sclerosis based on previous MRI imaging. She has a history of hyperparathyroid surgery. That did leave her with some vocal hoarseness. History of a , hypertension. Social hx: She does not smoke, does not drink or use any recreational drugs Medications: Losartan, full-dose aspirin, tramadol, baclofen Allergies: Celebrex and lisinopril Physical exam: Pleasant female in no acute distress, she does have slight speech disturbance, I can not tell if it has a true aphasia or if it is part of the vocal hoarseness that she was describing after her parathyroid surgery. She has significant amount of tenderness and pain with movement of her right arm. I really could not manipulated or examined it much. She could demonstrate range of motion through all major muscle groups. Strength on the left side and in both legs is normal. Reflexes were normal with no Steph sign, no clonus. Gait is normal. Cranial nerves intact, pupils equal responsive reactive to light. Imaging review: She has a cervical MRI done here at [facility] which more or less shows very mild degenerative disc disease at C3-4. The radiologist reports severe collapse of the disc at this level but I think this is an over interpretation. There is no evidence of spinal cord compression or any nerve root compression that I can see. She does have a brain MRI dating back last year showing some nonspecific changes in the periventricular white matter, could not rule out demyelinating disease. Impression: 52-year-old female who had sudden onset of right-sided arm pain which then progressed to whole body pain starting in July. I do not have an explanation for this based on her cervical MRI. She has very modest degenerative disc disease with nothing compressing the cord and no nerve impingement that I can see. It is well-known that people with MS can have episodes of flare-ups that can cause pain. She does have a possible history of this based on her previous MRI imaging. I am going to repeat that to evaluate for an MS plaque, also to rule out a thalamic stroke which can also give a junior sensory pain syndrome. Once the MRI is completed I will get back to the patient with the results. If that is negative, she may need a neurology consult. Thank you for allowing us to care for your patient. The total time spent with this visit with this patient was 45 minutes reviewing history, physical exam, cervical spine imaging review, and implementation of treatment plan or further diagnostic testing Leonardo Walker MD,PhD [facility] Orders: Orders MR head/brain wo con Today R52 - Pain, unspecified Coding Level of Care Code New Pt Level 4 (85008) Diagnoses Pain of right side of body R52
== END 2023-09-27 10:03 | disposition home or self-care (01) ==
PROVIDERS: PCP Internal Medicine; Referring Provider Orthopaedic Surgery; Visit Provider Physician Assistant
DX: R52 Pain, unspecified (principal)
CPT/HCPCS: 99204

== ENCOUNTER → 2023-09-27 09:09 | Outpatient (BNVA) | payer MEDICAID, SELFPAY | PROVIDERS: PCP Internal Medicine; Visit Provider Physician Assistant | DX: R52 Pain, unspecified (principal) | CPT/HCPCS: 99212 ==

== ENCOUNTER 2023-10-17 19:36 | Outpatient (REF) | payer OTHER, SELFPAY ==
--- NOTE | ~2023-10-17 | MR_ITS ---
EXAMINATION: MR BRAIN WITHOUT CONTRAST CLINICAL INFORMATION: 52-year-old with self-reported burning sensation, whole head and right-sided neck swelling. Question of thalamic stroke, MS. COMPARISON: 01/05/2023. TECHNIQUE: MRI of the brain was obtained using routine sequences without contrast. FINDINGS: Brain Volume: Within normal limits within the limitations of qualitative assessment. 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 Brain and Meninges: Allowing for wrap-around artifact, DWI sequence demonstrates no restricted diffusion to suggest acute or subacute cerebral ischemia. Redemonstrated are scattered small, subcentimeter foci of FLAIR/T2 signal hyperintensity in the white matter of both cerebral hemispheres, similar in appearance to the previous study, which are nonspecific findings. There is no evidence for thalamic infarction as questioned clinically. Note that there is some increased signal intensity along the cortex and sulci of the posterior occiput near the convexity likely the result of some susceptibility artifact along the posterior scalp on the current study. No extra-axial fluid collections, intracranial hemorrhage, space-occupying process or mass effect are identified. Ventricles and Subarachnoid Spaces: The ventricular system and subarachnoid spaces are within normal range; there is no hydrocephalus. Orbital Structures: The visualized orbital structures are grossly unremarkable within the limitations of the study. Vascular: Signal voids are noted in the visualized major intracranial vessels. Osseous Structures, Sinuses/Mastoids, Extracranial Soft Tissues: Multiple retention cysts are seen in the maxillary sinuses bilaterally, similar to the previous study. Nasal septal deviation to the right is again noted. Osseous structures appear grossly intact. There is lordotic reversal in the cervical spine at C3-C4 unchanged. There is a partially imaged 0.7 cm greatest short axis left retropharyngeal lymph node which is not completely included in the [id number] of the previous exam but is probably unchanged. MR/MR head/brain wo con IMPRESSION: 1. Scattered nonspecific white matter T2 hyperintensities in both cerebral hemispheres similar to the previous study. No evidence for thalamic infarction as questioned clinically. The distribution of these T2 hyperintensities is not pathopneumonic for MS. 2. No acute intracranial process. No intracranial hemorrhage, extra-axial fluid collection, space-occupying process, mass effect or hydrocephalus. 3. Bilateral maxillary sinus retention cysts similar to the previous study.
== END 2023-10-17 19:37 | disposition home or self-care (01) ==
LOC: HO.MRI 19:36
PROVIDERS: PCP Internal Medicine; Visit Provider Physician Assistant
DX: R52 Pain, unspecified (principal)
CPT/HCPCS: 70551

== ENCOUNTER 2024-02-08 13:09 | Emergency (ER) | payer OTHER, SELFPAY ==
--- NOTE | ~2024-02-08 | XR_ITS ---
EXAMINATION: XR HAND, RIGHT CLINICAL INFORMATION: jammed in door last night, pain to index finger COMPARISON: None available. TECHNIQUE: PA, lateral, and oblique views of the right hand. FINDINGS: The bones and soft tissues are normal. No fracture. Alignment is anatomic. Joint spaces are maintained. No erosions or soft tissue calcifications. No radiopaque foreign body. XR/XR hand RT min 3V IMPRESSION: Normal right hand.
[2024-02-08 13:11] VITALS: BP 192/102; PULSE 63; RESP 19; TEMP 36.6; O2SAT 100; BMI 33.1
--- NOTE | 2024-02-08 13:11 | ED.GENADULT ---
HPI - General Adult General Chief complaint: General Medical Stated complaint: r index finger inj and pain up arm into neck Time Seen by Provider: 02/08/24 17:47 Source: patient and RN notes reviewed Mode of arrival: ambulatory Limitations: no limitations History of Present Illness ED Provider: Mariana Jensen PA-C HPI narrative: This is a 53-year-old female, with a hx of CVA, HTN, and GERD, who presents emergency department with complaints of right finger pain and right-sided body pain since yesterday. Patient states that while she was at work she accidentally shut her finger into a door and she developed sudden onset right-sided body pain immediately afterwards. She states that the pain is constant. She also states that she has had subjective weakness in her arm and leg. She also states that she has had similar pain in the past which she has been seen by Dr. Mcqueen. She denies any fevers, chills, chest pain, shortness of breath, abdominal pain, nausea, vomiting or diarrhea. She is ambulatory with steady gait. No other complaints or concerns at this time. MD complaint: Right finger pain, body pain Onset (ago): day(s) Severity: moderate Relieving factors: none Exacerbating factors: none Associated symptoms: denies other symptoms Treatments prior to arrival: none Related Data Home Medications ?Medication ?Instructions ?Recorded ?Confirmed famotidine 40 mg tablet 1 tab PO DAILY PRN Acid Reflux 05/22/22 08/28/23 losartan 50 mg tablet 1 tab PO DAILY 05/22/22 08/28/23 omeprazole 40 mg capsule,delayed 1 cap PO DAILY 05/22/22 08/28/23 release Previous Rx's ?Medication ?Instructions ?Recorded ondansetron 4 mg disintegrating 4 mg PO Q8H 3 days #9 tabs 08/18/22 tablet diazepam 5 mg tablet (Valium) 5 mg PO TID PRN muscle spasm #10 08/16/23 tabs lidocaine 5 % topical patch 1 patch topical DAILY #30 ea 08/16/23 methylprednisolone 4 mg tablets in See Rx Instructions PO PER PKG DIR 08/28/23 a dose pack (Medrol (Yousuf)) #21 ea Allergies Allergy/AdvReac Type Severity Reaction Status Date / Time latex Allergy Swelling Verified 02/08/24 13:14 celecoxib [From Celebrex] AdvReac Intermediate Swelling Verified 02/08/24 13:14 lisinopril AdvReac Intermediate Swelling Verified 02/08/24 13:14 metoprolol AdvReac Intermediate Swelling Verified 02/08/24 13:14 Review of Systems Review of Systems: Yes all other systems are reviewed and are negative Constitutional: Constitutional: Reports as per HPI [facility] Past Medical History Medical History (Updated 02/09/24 @ 00:01 by Annette Valdez) Bursitis of knee Poorly-controlled hypertension Surgical History (Updated 08/28/23 @ 10:34 by Kandi Yepez CMA) History of section Social History Social History Advance Directives: No Advance Directives Information Provided: No service: No Physical Exam ED Vital Signs: Vital Signs - 24 hr 02/08/24 13:11 02/08/24 17:54 02/08/24 19:26 Temperature 98 F 98.6 F 97.9 F Pulse Rate 63 60 88 Respiratory Rate 19 18 18 Blood Pressure 192/102 H 173/94 H 175/95 H Pulse Oximetry 100 100 98 Oxygen Delivery Method Room Air Room Air Room Air BMI result Body Mass Index 33.1 Const General: cooperative, comfortable and no acute distress Orientation/consciousness: patient oriented x3 Limitations: no limitations HENMT Head: Yes normal to inspection, Yes normocephalic and Yes atraumatic Ears: hearing grossly normal bilaterally General nose exam: Normal external nose present Face and sinus: Yes normal facial exam Mouth: Normal oral and palatal mucosa present, oropharynx normal and moist mucous membranes Throat: Yes posterior oropharynx normal Eyes General: appearance normal, both eyes and all related structures Eyelids: Yes eyelids normal Conjunctivae: conjunctivae normal Sclerae: sclerae normal Pupils: Equal, round and reactive pupils present EOM: EOMs intact bilaterally Neck Neck: Yes normal visual inspection, Yes full ROM and Yes no lymphadenopathy Lymphatic: no lymphadenopathy noted Chest Chest palpation & inspection: normal inspection of the chest Resp Effort & Inspection: normal respiratory effort and able to speak in complete sentences Auscultation: clear to auscultation bilaterally, no crackles, no rales, no rhonchi and no wheezes Cardio Rate: regular rate Rhythm: regular rhythm Heart sounds: S1 normal heart sound present and S2 normal heart sound present GI Inspection: Yes normal to inspection Skin General skin exam: no rashes or lesions noted Trauma: no lacerations or abrasions Wounds: no wounds Neuro Other: Upper and lower extremities with good strength bilaterally. They are equal. Distal sensation circulation intact. General: patient oriented x3 and moves all extremities Cranial nerves: Yes CN's II-XII intact bilaterally and Yes Equal, round and reactive pupils present Gait exam (Neuro): Normal gait present Motor exam (neuro): 5/5 motor strength present throughout and Pronator motor function not present Coordination: [id number] test normal and [id number] test normal Romberg Test: Negative Extrem Other: Right 2nd digit with no obvious bony deformity or swelling. She is diffuse tenderness throughout the entire finger without any specific point tenderness. She has full range of motion of the PIP DIP. No open wounds or lacerations. Able to oppose thumb to all digits without difficulty. Able to make a fist. No open wounds Patient has diffuse tenderness throughout right arm into the right shoulder and into the right trapezius. Full range of motion of the arm without difficulty. Strength 5/5 in upper and lower extremities bilaterally. Strong radial pulse. General: Yes normal to inspection Right upper extremity: normal to inspection Left upper extremity: normal to inspection Right lower extremity: normal to inspection Left lower extremity: normal to inspection Course Course Course Narrative: This is a rapid medical exam performed by Gareth Griffith NP: Additional HPI, ROS, PE not included below will be deferred to primary provider. Patient is a 53-year-old female with history of CVA 1 year ago presenting to the emergency department with complaint of pain and weakness to entire right side of body after jamming right index finger last night around 6 or 7 pm. Describes a burning pain to back of neck going to head. History of same in the past, saw Dr. Mcqueen for similar sxs in September of this year. Hypertensive in triage 192/102. Plan: EKG, labs, xray Medical Decision Making Medical Decision Making MDM Narrative: This is a 53-year-old female who presents emergency department with complaints of right 2nd digit pain status accidentally slamming digit in door. patient hypertensive at 192/102, repeat 175/95. She has no headache, dizziness, blurred vision, chest pain or shortness breast. She is speaking full sentences under no acute distress. She is neurologically intact. She states that since this incident, she has had right-sided body pain. She has no focal deficits on examination. She is alert and oriented x4. She has a history of CVA with reported right-sided deficits however none elicited on examination today. She is diffuse tenderness throughout her upper right back, diffusely down her right arm and into her right digit. She is ambulatory with steady gait. X-rays were obtained, revealing no fracture. Labs normal limits. Symptoms likely due to musculoskeletal pain. Will treat symptomatically with Tylenol and Motrin. Patient given return precautions. She understands agrees with plan. Patient stable for discharge. Differential Diagnosis Differential Diagnoses: The differential diagnosis associated with the presentation includes Contusion, fracture, dislocation Lab Data MDM Lab Attestation statement: I reviewed the patient's lab results. No leukocytosis, H&H stable, chemistry within normal limits. Negative swab 02/08/24 13:46 02/08/24 13:46 Labs: Lab Results 02/08/24 02/08/24 Range/Units 13:46 18:21 WBC 8.0 (4.8-10.8) X10*3/uL RBC 4.96 (4.20-5.50) X10*6/uL Hgb 13.1 (12.0-16.0) g/dl Hct 40.7 (37.0-47.0) % MCV 82.1 (80.0-98.0) fL MCH 26.4 L (27.0-33.0) pg MCHC 32.2 (31.0-35.0) g/dl RDW 14.1 (11.0-16.0) % Plt Count 226 (160-400) X10*3/uL MPV 10.8 (9.4-12.3) fL Immature Gran % (Auto) 0.5 H (0.0-0.4) % Neut % (Auto) 59.5 (45-73) % Lymph % (Auto) 30.9 (20-40) % [place] % (Auto) 7.3 (2-11) % Eos % (Auto) 1.4 (0-4) % Baso % (Auto) 0.4 (0-2) % Lymph # (Auto) 2.5 (1.2-4.9) X10*3/uL [place] # (Auto) 0.6 (0.1-1.2) X10*3/uL Eos # (Auto) 0.1 (0.0-0.4) X10*3/uL Baso # (Auto) 0.0 (0.0-0.2) X10*3/uL Abs Immat Gran (auto) 0.04 H (0.00-0.03) X10*3/uL Absolute Neuts (auto) 4.7 (2.0-8.3) x10*3/uL Absolute Nucleated RBC 0.000 (0.0-0.012) X10*3/uL Nucleated RBC % (auto) 0.0 (0.0-0.2) /100WBC Sodium 142 (135-145) mmol/L Potassium 4.0 (3.3-5.1) mmol/L Chloride 111 H (96-108) mmol/L Carbon Dioxide 24 (22-29) mmol/L Anion Gap 11 L (12-20) BUN 11 (9-16) mg/dL Creatinine 0.78 (0.5-1.4) mg/dL Estim Creat Clear Calc 98.0 Estimated GFR > 60 Random Glucose 90 (60-115) mg/dL Calcium 10.8 H (8.4-10.2) mg/dL Total Bilirubin 0.3 (0.0-1.0) mg/dL AST 20 (5-31) U/L ALT 15 (0-31) U/L Alkaline Phosphatase 110 (39-117) U/L Troponin I High Sens < 2.7 (<3.5-17.0) ng/L Total Protein 7.4 (6.5-8.0) g/dL Albumin 4.1 (3.5-5.0) g/dL Beta HCG, Quant < 2 mIU/mL Influenza Type A (PCR) NEGATIVE (Negative) Influenza Type B (PCR) NEGATIVE (Negative) RSV RNA Qual (PCR) NEGATIVE (Negative) SARS-CoV-2 RNA (RT-PCR) NEGATIVE (Negative) Independent Interpretation I performed an independent interpretation of an: EKG Interpretation: EKG sinus bradycardic at a ventricular rate of 57 beats per minute, no ST elevation or depression. Radiology Impression Discussion of test interpretation with radiology: I have reviewed the radiologist's reading. Radiologist Impression: XR/XR hand RT min 3V IMPRESSION: Normal right hand. Dictated By: Kathleen Soliz Discharge Plan Discharge Clinical Impression: Pain of right side of body, Contusion of right index finger Patient Disposition: Home, Self-Care Instructions: Contusion in Adults (ED), Musculoskeletal Pain (ED) Additional Instructions: You were seen in the emergency department after injuring her right finger. Your x-ray does not show any broken bones. Your labs were reassuring. You tested negative for flu, COVID, and RSV. Watch for any new or worsening symptoms including but not limited to weakness, increased pain, severe headache, dizziness, lightheadedness, chest pain, shortness of breath, please return for re-evaluation. Please follow-up with your primary care physician regarding this visit. Call on Saturday to make an appointment. Prescriptions: No Action losartan 50 mg tablet 1 tab PO DAILY famotidine 40 mg tablet 1 tab PO DAILY PRN (Reason: Acid Reflux) omeprazole 40 mg capsule,delayed release(DR/EC) 1 cap PO DAILY ondansetron 4 mg tablet,disintegrating 4 mg PO Q8H 3 Days Qty: 9 0RF lidocaine 5 % adhesive patch,medicated 1 patch topical DAILY Qty: 30 0RF Rx Instructions: leave on most painful area for up to 12 hrs diazepam [Valium] 5 mg tablet 5 mg PO TID PRN (Reason: muscle spasm) Qty: 10 0RF Rx Instructions: partial fill is okay methylprednisolone [Medrol (Yousuf)] 4 mg tablets,dose pack See Rx Instructions PO PER PKG DIR Qty: 21 0RF Rx Instructions: PO PER PKG DIR Interventions: ED Discharge Assessment Last Done: 02/08/24 19:26 Discharge Date/Time: 02/08/24 19:27 Print Language: Belizean
--- NOTE | 2024-02-08 13:17 | ECG_ITS ---
Test Reason : RIGHT ARM PAIN Blood Pressure : / mmHG Vent. Rate : 057 BPM Atrial Rate : 057 BPM P-R Int : 206 ms QRS Dur : 092 ms QT Int : 422 ms P-R-T Axes : 021 028 029 degrees QTc Int : 410 ms Sinus bradycardia Otherwise normal ECG When compared with ECG of 16-AUG-2023 04:20, No significant change was found Referred By: Sabina Griffith Electronically Signed By:Ventura Casanova
[2024-02-08 13:49] LABS: MANUAL DIFF FLAG NO
[2024-02-08 13:51] LABS: Monocytes Absolute Auto 0.6 X10*3/uL (0.1-1.2); Monocytes Percent Auto 7.3 % (2-11)
[2024-02-08 13:59] LABS: Basophils Percent Auto 0.4 % (0-2); Eosinophils Absolute Auto 0.1 X10*3/uL (0.0-0.4); Eosinophils Percent Auto 1.4 % (0-4); Hematocrit 40.7 % (37.0-47.0); Hemoglobin 13.1 g/dl (12.0-16.0); Imm Gran Abs Auto 0.04 X10*3/uL (0.00-0.03); Imm Gran Pct Auto 0.5 % (0.0-0.4); Lymphocytes Absolute Auto 2.5 X10*3/uL (1.2-4.9); Lymphocytes Percent Auto 30.9 % (20-40); Mean Corpuscular HGB Conc 32.2 g/dl (31.0-35.0); Mean Corpuscular Hemoglobin 26.4 pg (27.0-33.0); Mean Corpuscular Volume 82.1 fL (80.0-98.0); Mean Platelet Volume 10.8 fL (9.4-12.3); Neutrophils Absolute Auto 4.7 x10*3/uL (2.0-8.3); Neutrophils Percent Auto 59.5 % (45-73); Platelet Count 226 X10*3/uL (160-400); Red Blood Count 4.96 X10*6/uL (4.20-5.50); Red Cell Distribution Width 14.1 % (11.0-16.0)
[2024-02-08 14:17] LABS: Troponin-I High Sensitivity < 2.7 ng/L (<3.5-17.0)
[2024-02-08 14:18] LABS: Alanine Aminotransferase 15 U/L (0-31); Albumin Level 4.1 g/dL (3.5-5.0); Alkaline Phosphatase 110 U/L (39-117); Anion Gap 11 (12-20); Aspartate Amino Transferase 20 U/L (5-31); Bilirubin Total 0.3 mg/dL (0.0-1.0); Blood Urea Nitrogen 11 mg/dL (9-16); Calcium 10.8 mg/dL (8.4-10.2); Carbon Dioxide 24 mmol/L (22-29); Chloride 111 mmol/L (96-108); Estimated Glomerular Filt Rate > 60; Glucose Random 90 mg/dL (60-115); HCG Quantitative < 2 mIU/mL; Sodium 142 mmol/L (135-145); Total Protein 7.4 g/dL (6.5-8.0)
[2024-02-08 17:54] VITALS: BP 173/94; PULSE 60; RESP 18; TEMP 37; O2SAT 100
[2024-02-08 19:03] LABS: Influenza A PCR NEGATIVE (Negative); Influenza B PCR NEGATIVE (Negative); Resp Syncy Virus RNA Qual PCR NEGATIVE (Negative); SARS COV2 PCR INHOUSE NEGATIVE (Negative)
[2024-02-08 19:26] VITALS: BP 175/95; PULSE 88; RESP 18; TEMP 36.6; O2SAT 98
== END 2024-02-08 19:27 | disposition home or self-care (01) ==
PROVIDERS: Physician Assistant Medical; Registered Nurse Emergency; Emergency Provider Student in an Organized Health Care Education/Training Program; PCP Internal Medicine
DX: S60.021A Contusion of right index finger without damage to nail, initial encounter (principal); W23.1XXA Caught, crushed, jammed, or pinched between stationary objects, initial encounter; M79.18 Myalgia, other site; M79.601 Pain in right arm; Y93.89 Activity, other specified; Y92.129 Unspecified place in nursing home as the place of occurrence of the external cause; Y99.0 Civilian activity done for income or pay; Z03.818 Encounter for observation for suspected exposure to other biological agents ruled out; I10 Essential (primary) hypertension
CPT/HCPCS: 0241U; 36415; 73130; 80053; 84484; 84702; 85025; 93005; 99283; 99284

== ENCOUNTER → 2024-02-08 13:17 | Outpatient (BNV) | payer OTHER, SELFPAY | PROVIDERS: Emergency Provider Student in an Organized Health Care Education/Training Program; PCP Internal Medicine; Visit Provider Internal Medicine Cardiovascular Disease | DX: R00.1 Bradycardia, unspecified (principal) | CPT/HCPCS: 93010 ==

== ENCOUNTER 2024-04-08 22:11 | Emergency (ER) | payer OTHER, SELFPAY ==
--- NOTE | ~2024-04-08 | XR_ITS ---
EXAMINATION: XR LUMBOSACRAL SPINE CLINICAL INFORMATION: Injury at work radiating down right leg. COMPARISON: MRI of lumbar spine 02/24/2020, lumbar spine radiograph 02/02/2020 TECHNIQUE: Three views of the lumbosacral spine. FINDINGS: 5 lumbar type vertebral bodies are identified. Mild straightening of the lumbar lordosis is present and may relate to positioning during the examination. Marked intervertebral disc space narrowing is present at L5-S1 with approximately 75% loss of intervertebral disc height which is progressed compared with 02/02/2020. No vertebral body compression deformities noted. Endplate discogenic sclerotic changes are noted adjacent to the L5-S1 intervertebral disc space. Making allowances for heterogeneous density within the fecal stream, no definitive urolithiasis or dystrophic calcifications noted. The sacroiliac joints are normal in appearance. XR/XR lumbar spine 2-3V IMPRESSION: *No acute abnormalities identified. *Marked intervertebral disc space narrowing L5-S1 consistent with underlying degenerative disc disease. Findings are progressed compared with 02/02/2020. Electronically signed by: Roberto Carlos Whitehead MD 04/09/2024 01:27 AM EDT
[2024-04-08 22:12] VITALS: BP 188/111; PULSE 70; RESP 18; TEMP 36.7; O2SAT 98; BMI 33.1
[2024-04-09] VITALS: BP 196/94; PULSE 62; RESP 18; TEMP 36.7; O2SAT 100
--- OUTSIDE RECORDS SUMMARY | 2024-04-09 00:19 | XMS_ITS | Continuity of Care Document ---
Author Organization [facility] Address [address] [place] [address] [address] [place] [address]- Care Team Providers Care Cath Lab Tech Name Role Phone Jeanmarie Drake DO Stacy Primary Care Physician [phone] [facility] Date(s): 08/29/22 - 09/28/22 [facility] [address] [place] [address]- Allergies, Adverse Reactions, Alerts Substance Reaction Severity Status lisinopril swollen tongue Active Vicodin Active CeleBREX hives, breathing dif ficulty Seafood allergy swelling all over Active Latex Active Seafood difficulty breathing Active Medications Citracal Maximum + D oral tablet 2 tablet, By Mouth, Daily, # 120 tablet, 0 Refills, Maintenance, 08/03/22 18:14:00 EST, Tablet, [facility], Partial fill upon patient request if the prescription is for a schedule II opioid drug., 2 tablet By Mouth Daily, 170, cm, ... Start Date: 08/03/22 Status: Ordered diclofenac 1% topical gel 1 application, Topically, 4 times a day, PRN for pain, # 100 Gm, 0 Refills, Maintenance, 04/12/18 19:24:36 EDT, Gel Start Date: 04/12/18 Stop Date: 04/26/18 Status: Ordered losartan 100 mg oral tablet 1 tablet = 100 mg, By Mouth, Daily, # 30 tablet, 0 Refills, Maintenance, 06/14/22 12:16:00 EDT, Tablet, Partial fill upon patient request if the prescription is for a schedule II opioid drug. Start Date: 06/14/22 Status: Ordered Percocet-5/325 325 mg-5 mg oral tablet 2 tablet, By Mouth, Every 6 hours, PRN Pain, # 20 capsule, 0 Refills, Maintenance, Tablet Start Date: 07/19/12 Status: Ordered Prilosec OTC = 20 mg, By Mouth, Daily, 0 Refills, Maintenance Start Date: 09/26/12 Status: Ordered ranitidine 75 mg oral tablet 1 tablet = 75 mg, By Mouth, 2 times a day, # 60 tablet, 0 Refills, Maintenance, 03/04/14 6:20:31, Tablet, 1 tablet By Mouth 2 times a day Start Date: 03/04/14 Stop Date: 03/14/14 Status: Ordered Tramadol By Mouth, PRN as needed for pain, 0 Refills, Maintenance Start Date: 09/26/12 Status: Ordered Problem List Condition Confirmation Course Effective Dates Status Health St atus Informant Obese class I Confirmed Active Patient Care team information Care Team Personnel Name: Jeanmarie Drake DO Position: Reference Physician Member Role: PCP Address: Address: [address] [place] [address] [place] [address]- Care Team Related Persons Name: MERLY VIRAMONTES Address: [place] [address] Name: HANG SUN
--- OUTSIDE RECORDS SUMMARY | 2024-04-09 00:19 | XMS_ITS | Continuity of Care Document ---
Author Organization [facility] Address [address] [place] [address] [address] [place] [address]- Care Team Providers Care Category Consultant Name Role Phone Jeanmarie Drake DO Primary Care Physician [id number] Date[facility] 08/24/[facility] - 08/31/22 [facility] [address] [place] [address]- Attending Physician: Rony Hanson Referring Physician: Jeanmarie Drake DO Allergies, Adverse Reactions, Alerts Substance Reaction Severity Status lisinopril swollen tongue Active Vicodin Active Latex Active Seafood difficulty breathing Active CeleBREX hives, breathing dif ficulty Seafood allergy swelling all over Active Medications Citracal Maximum + D oral tablet 2 tablet, By Mouth, Daily, # 120 tablet, 0 Refills, Maintenance, 08/03/22 18:14:00 EST, Tablet, [facility], Partial fill upon patient request if the prescription is for a schedule II opioid drug., 2 tablet By Mouth Daily, 170, cm, 06/14/... Start Date: 08/03/22 Status: Ordered diclofenac 1% [...] atus Informant Obese class I Confirmed Active Vital Signs Most recent to oldest [Reference Range]: 1 Height 170 cm (08/24/22 2:41 PM) Weight 87.1 kg (08/24/22 2:41 PM) Pulse Rate [55-90 bpm] 66 bpm (08/24/22 2:41 PM) Body Mass Index [18.5-24.99 kg/m2] 30.14 kg/m2 *>HHI* (08/24/22 2:41 PM) Blood Pressure [90-138/55-84 mm Hg] 151/ 98mm Hg *H* (08/24/22 2:41 PM) Temperature [96.8-100.4 DegF] 96.7 DegF *L* (08/24/22 2:41 PM) Blood pressure sites Arm, left (08/24/22 2:41 PM) Temperature Route Temporal (08/24/22 2:41 PM) Weight Obtained Via Standing scale (08/24/22 2:41 PM) Patient Care team information Care Team Personnel Name: Jeanmarie Drake DO Position: Reference Physician Member Role: PCP Address: Address: [address] [place] [address] [place] [address]- Care Team Related Persons Name: MERLY VIRAMONTES Address: [place] [address] Name: HANG SUN
--- OUTSIDE RECORDS SUMMARY | 2024-04-09 00:19 | XMS_ITS | Continuity of Care Document ---
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 Role Phone Jeanmarie Drake DO Stacy Primary Care Physician Encounter [facility] Date(s): 08/24/22 - 09/23/22 [facility] [address] [place] [address]- Attending Physician: Shane Ruiz Admitting Physician: AdmtrShane Referring Physician: AdmtrShane Allergies, Adverse Reactions, Alerts Substance Reaction Severity Status lisinopril swollen tongue Active Vicodin Active Seafood difficulty breathing Active CeleBREX hives, breathing dif ficulty Seafood allergy swelling all over Active Latex Active Medications Citracal Maximum + D oral tablet 2 tablet, By Mouth, Daily, # 120 tablet, 0 Refills, Maintenance, 08/03/22 18:14:00 EST, Tablet, [facility], Partial fill upon patient request [...] Reference Physician Member Role: PCP Address: Address: [address] [place] [address] Internal Medicine [place], [place] [address] Care Team Related Persons Name: MERLY VIRAMONTES Address: [place] [address] Name: HANG SUN
--- OUTSIDE RECORDS SUMMARY | 2024-04-09 00:19 | XMS_ITS | Continuity of Care Document ---
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 Name Role Phone Jeanmarie Drake DO Stacy Primary Care Physician Encounter [facility] [place] Date(s): 09/19/22 - 10/19/22 [facility] [address] [place] [address]- Allergies, Adverse Reactions, Alerts Substance Reaction Severity Status lisinopril swollen tongue Active Vicodin Active Latex Active Seafood difficulty breathing Active CeleBREX hives, breathing dif ficulty Seafood allergy swelling all over Active Medications Citracal Maximum + D oral tablet 2 tablet, By Mouth, Daily, # 120 tablet, 0 Refills, Maintenance, 08/03/22 18:14:00 EST, Tablet, [facility], Partial fill upon patient request [...] Reference Physician Member Role: PCP Address: Address: [address] [place] [address] [place] [address]- Care Team Related Persons Name: MERLY VIRAMONTES Address: [place] [address] Name: HANG SUN
--- OUTSIDE RECORDS SUMMARY | 2024-04-09 00:19 | XMS_ITS | Continuity of Care Document ---
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 Name Role Phone Jeanmarie Drake DO Stacy Primary Care Physician Encounter [facility] [place] Date(s): 08/03/22 - 08/03/[address] [address] Discharge Disposition: A-D/C Home Attending Physician: Anupam Loo MD Admitting Physician: Anupam Loo MD Referring Physician: Anupam Loo MD Allergies, Adverse Reactions, Alerts Substance Reaction Severity Status lisinopril swollen tongue Active Vicodin Active Latex Active Seafood difficulty breathing Active CeleBREX hives, breathing dif ficulty Seafood allergy swelling all over Active Medications Citracal Maximum + D oral tablet 2 tablet, By Mouth, Daily, # 120 tablet, 0 Refills, Maintenance, 08/03/22 18:14:00 EST, Tablet, [facility], Partial fill upon patient [...] opioid drug. Start Date: 06/14/22 Status: Ordered oxyCODONE 5 mg oral tablet 5 mg, 1, tablet, By Mouth, Every 6 hours, PRN, for 2 days, do not drive while taking narcotic pain medications partial fill upon patient request, # 5 tablet, Refills 0, Tot. Refills 0, Acute 08/05/2216:43:00 EST, Pain , Severe Pain , Moderate, ... Start Date: 08/03/22 Stop Date: 08/05/22 Status: Ordered Oxycodone 5mg Oral Tablet (PACU ONLY) 5 mg, Tablet, By Mouth, Once, in PACU ONLY, PRN for Pain , Moderate, Routine, 08/03/22 15:50:00 EST Start Date: 08/03/22 Stop Date: 08/03/22 Status: Completed Percocet-5/325 325 mg-5 mg oral tablet 2 [...] Refills, Maintenance Start Date: 09/26/12 Status: Ordered Tylenol 325 mg oral tablet 650 mg, 2, tablet, By Mouth, Every 4 hours, PRN, for 5 days, not to exceed 4000 mg/day, # 50 tablet, Refills 0, Tot. Refills 0, Acute 08/08/22 16:43:00 EST, for pain, 08/03/22 16:43:00 EST, Route to Pharmacy Electronically, [facility], P... Start Date: 08/03/22 Stop Date: 08/08/22 Status: Ordered Problem List Condition Confirmation Course Effective Dates Status Health St atus Informant Obese class I Confirmed Active Procedures Procedure Date Related Diagnosis Body Site Status Parathyroidectomy 08/03/22 Complet ed Vital Signs Most recent to oldest [Reference Range]: 1 2 3 Weight 87.5 kg (08/03/22 12:29 PM) Oxygen Saturation [94-100 %] 100 % (08/03/22 5:30 PM) 100 % (08/03/22 5:15 PM) 100 % (08/03/22 5:00 PM) Pulse Rate [55-90 bpm] 67 bpm (08/03/22 12:29 PM) Blood Pressure [90-138/55-84 mm Hg] 179/108mm Hg *H* (08/03/22 5:30 PM) 173/104mm Hg *H* (08/03/22 5:15 PM) 157/103mm Hg *H* (08/03/22 5:00 PM) Respiratory Rate [16-30 br/min] 16 br/min (08/03/22 5:58 PM) 16 br/min (08/03/22 5:30 PM) 13 br/min *L* (08/03/22 5:15 PM) Temperature [96.8-100.4 DegF] 97 DegF (08/03/22 5:30 PM) 97.7 DegF (08/03/22 4:30 PM) 99.3 DegF (08/03/22 12:29 PM) Liters per Minute 6 L/min (08/03/22 5:15 PM) 6 L/min (08/03/22 5:00 PM) 6 L/min (08/03/22 4:45 PM) Mode of Delivery (Oxygen) Room air (08/03/22 5:30 PM) Simple face mask (08/03/22 5:15 PM) Simple face mask (08/03/22 5:00 PM) Blood pressure sites Arm, left (08/03/22 4:30 PM) Arm, right (08/03/22 12:29 PM) Temperature Route Temporal (08/03/22 5:30 PM) Temporal (08/03/22 4:30 PM) Temporal (08/03/22 12:29 PM) Dry Weight 87.5 kg (08/03/22 12:29 PM) Weight Obtained Via Standing scale (08/03/22 12:29 PM) Dry Weight Obtained Via Standing scale (08/03/22 12:29 PM) Note * Jasmina Olivas RN: PERFORM Event Display: Patient Education/Instruction Authored Date: [id number] Inpatient Adult Discharge Instructions [address] [address] Name: DAYDAY VIRAMONTES : 1970 Visit: 08/03/2022 11:19:00 Current Date: 08/03/2022 17:08 Account: [id number] Inpatient Adult Discharge Instructions We would like to thank you for allowing us to assist you with your healthcare needs. The following includes patient education materials and information regarding your injury/illness. Our entire staffstrives to provide an excellent experience for our patients and their families. PLEASE ENSURE YOU FOLLOW-UP PER THE INSTRUCTIONS BELOW! ?? YOUR OPINION IS IMPORTANT TO US! Please complete the survey you may receive by mail or email. Your feedback will be used to make improvements to the healthcare experiences of our patients and their families. Surveys are administered by [employer] ?? If further treatment with your primary care physician or another doctor is recommended, it is important for you to keep the appointment. Call your primary care physician or return to the Emergency Department immediately if your condition worsens, fails to improve, or new symptoms develop. If you need to find a doctor, you can call [facility] for a referral at [phone] or toll free at [phone]) or log in to [email or web address].. ?? You can view and manage your care through the patient portal or by using a health care zaire of your choosing. [employer] is a website that allows you to securely view your medical information including your hospital discharge summary, office visit summaries, medications and follow-up visits. You can also request appointments, renew medications, and request access to your medical information using a health care zaire of your choosing, or just ask a question. You can enroll at [email or web address] or register during your next office visit. You have been discharged from [facility], Patient Care Unit: [facility]. If you have any questions regarding these instructions after you leave, please call us and we will be happy to assist you. [facility] Your Care Team Attending Physician Anupam Loo MD Discharging Providers Joceline Elliott MD Reason for Admission HYPERPARATHYROIDISM CS DS Tests Performed Below is a partial list of the tests performed during your hospitalization. You may have had other tests and procedures not included in this list. Please discuss all test results with your provider. INTRAOPERATIVE PTH Primary Care Provider Jeanmarie Drake DO Advance Directive Health Care Proxy on File No No qualifying data available. Discharge Vitals Temperature: 97.7 DegF Weight: 87.5 kg Pulse Rate: 67 bpm ?? Respiratory Rate:??13 br/min??Low ?? Systolic Blood Pressure:??157 mm Hg??High ?? Diastolic Blood Pressure:??103 mm Hg??High ?? Oxygen Saturation: 100 % ?? Studies Pending All tests and labs ordered during this hospital stay have been completed unless listed below. Please discuss all pending results with your provider listed above in these instructions. ?? PTH Intact What to do next Instructions From Your Doctor Discharge Orders Instructions from your Care Team FOLLOW POSTOP INSTRUCTIONS Scheduled Follow-Up Appointments Saturday 2:40 PM EST ?? With: Rony Hanson Where: [facility] General Surgery [address] [place] [address] Drive [address] [place] [address]- You Need to Schedule the Following Appointments Follow Up with??Anupam Loo When??Within 1 to 2 weeks Where: [address] [place] [address], [address] [place] [address]- Business (1) Follow Up with??Jeanmarie Drake DO When??In 0 days Where: [address] [place] [address] [place] [address]- Business (1) Discharge Medications DAYDAY VIRAMONTES :1970 Visit Date:08/03/2022 Medications: Please continue your medications until treatment is completed or stopped by your provider. Medications not listed below should be discontinued. Discuss any questions related to medications with your provider. What How Much When Instructions Next Dose New Acetaminophen (Tylenol 325 mg oral tablet) 2 tab(s) Oral Every 4 hours as needed for for pain Duration: 5 Days not to exceed 4000 mg/ day ?? Pickup at [facility] New Calcium And Vitamin D Combination (Citracal Maximum + D oral tablet) 2 tab(s) Oral 3 times a day Pickup at [facility] 3 New Oxycodone (oxyCODONE 5 mg oral tablet) 1 tab(s) Oral Every 6 hours as needed for Pain , Severe Pain , Moderate Duration: [address] taking narcotic pain medications partial fill upon patient request ?? Pickup at [facility] 3 Unchanged Diclofenac Topical (diclofenac 1% topical gel) 1 zaire Topically 4 times a day as needed for for pain Duration: 14 Days Unchanged Losartan (losartan 100 mg oral tablet) 1 tab(s) Oral Daily Unchanged Omeprazole (Prilosec OTC) 20 Milligram Oral Daily Unchanged Oxycodone / Acetaminophen (Percocet-5/ 325 325 mg-5 mg oral tablet) 2 tab(s) Oral Every 6 hours as needed for Pain Unchanged Ranitidine (ranitidine 75 mg oral tablet) 1 tab(s) Oral Twice a day Unchanged Tramadol Oral As needed for as needed for pain Pharmacy Information [facility]: [address], [place] [id number] [phone] Test Results Below is a partial list of the most recent Laboratory test results done prior to this discharge. You may have had other tests and procedures not included in this list. Please discuss all test resultswith your provider. INTRAOPERATIVE PTH (08/03/2022) ???Intraoperat PTH - 35 pg/mL Allergies (NKA means No Known Allergies) CeleBREX??(hives, breathing difficulty, Seafood allergy, swelling all over) Latex Seafood??(difficulty breathing) Vicodin lisinopril??(swollen tongue) Problems Active Problems??(1) Obese class I?? Education Materials Below is the list of Educational Leaflet Providered with your Discharge Instructions. Surgery Medical Daystay Surgical Overnight Discharge Instructions?? Valuables and Belongings I fully understand and agree that [facility] accepts no responsibility for all my personal property including clothing, toilet articles, radios, jewelry, dentures, hearing aids, rings, money, or any other property that is in my possession or is brought to me after admission. I understand certain valuables may be placed in a hospital safe for a short period of time. I understand that the hospital is not liable for loss or damage due to accident, fire, or other natural occurrence while said property is in the safe. I accept full responsibility for any personal property that I keep with me, and will not hold the hospital responsible in case of loss or disappearance. I acknowledge that i have been encouraged to send valuables and belongings home. ?? Review of Valuable and Belonging List: With patient Date for Pt to Sign Valuables/Belongings: 08/03/22 12:29:00 ?? Valuables & Belongings ?? Clothes Electronic devices Jewelry Monetary Items Personal devices Miscellaneous Medications (Valuables) Valuables at Bedside Jacket, Pants, Shirt, Shoes, Undergarments Cell phone ? Glasses ? Valuables Sent Home ? Valuables Sent to Security ? Other Discharge Information ? Pulmonary Rehab Status?? Pulmonary Rehab Discharge Status?? Respiratory Rate:??13 br/min??Low ? Common Emergency Awareness Tips IS IT A STROKE? Act FAST and Check for these signs: FACE Does the face look uneven? ARM Does one arm drift down? SPEECH Does their speech sound strange? TIME Call at any sign of stroke ?? Heart Attack Signs Chest discomfort: Most heart attacks involve discomfort in the center of the chest and lasts more than a few minutes, or goes away and comes back. It can feel like uncomfortable pressure, squeezing, fullness or pain. Discomfort in upper body: Symptoms can include pain or discomfort in one or both arms, back, neck, jaw or stomach. Shortness of breath: With or without discomfort. Other signs: Breaking out in a cold sweat, nausea, or lightheaded. Remember, MINUTES DO MATTER. If you experience any of these heart attack warning signs, call to get immediate medical attention! ?? Smoking can increase your chances of developing chronic health problems and can cause harmful effects to other family members in your house. If you smoke, you are strongly encouraged to quit. Please call [employer] at [phone] or [phone] ([phone]) or log in to [email or web address] for referrals to smoking cessation programs. ?? The National Suicide Prevention Hotline is available 11/03 if you or someone you know needs to find a reason to keep living. By calling 9-452-218-mfdo (9225) you'll be connected to a skilled, trained counselor at a crisis center in your area. INPATIENT DISCHARGE INSTRUCTIONS SIGNATURE PAGE DAYDAY VIRAMONTES Location:[facility] Registration Date and Time:08/03/2022 11:19 EST Primary Care Physician: Jeanmarie Drake DO, I DAYDAY VIRAMONTES, have received the above patient education materials/instructions and have verbalized understanding. If ambulance or transport services are being used I further acknowledge being given a choice of service. ?? If you need to contact me, please call me at this number: . Patient/Director Of Clinical Services Name: Patient/Director Of Clinical Services Signature: Relationship to Patient: Witness Name/Signature: Date: * Jasmina Olivas RN: PERFORM, SIGN, VERIFY Event Display: Patient Education Handout Authored Date: [id number] * Jasmina Olivas RN: PERFORM Event Display: Patient Education Leaflets Authored Date: [id number] Surgery Medical Daystay Surgical Overnight Discharge Instructions ?? 295 Medical Daystay/Surgical Overnight Discharge Instructions ? Since your coordination and judgment may be altered by medication and/or anesthesia, a responsible adult must drive you home from the hospital. ? If you have received medication for pain or sedation while under our care, you should not drive, operate machinery, drink alcohol, or sign any legal documents for 24 hours.?? You should have someone with you at home tonight. ? Remain at home the day of discharge.?? You may be up and about unless otherwise instructed by your physician. ? You may resume your daily prescription medication schedule.?? Any depressant medication should be avoided for 24 hours unless otherwise instructed by your surgeon or anesthesiologist. ? Call your physician for a follow-up appointment.? If you experience unusual or severe pain not relied by your pain medication, excessive bleedingor drainage, persistent nausea and vomiting, excessive swelling or redness, foul odor from incisionsite or fever over 100.6F, you need to call your physician. ? A follow-up phone call by a nurse will be made the day after your procedure.?? If you have stayed with us over night, you will not be receiving a follow-up phone call. ? Nausea and vomiting are a common side effect of prescription pain medication.?? We recommend that pills are not taken on an empty stomach.?? While taking any prescription pain medication you should not drive or drink alcohol. ? Patient Care team information Care Team Personnel Name: Jeanmarie Drake DO Position: Reference Physician Member Role: PCP Address: Address: [address] [place] [address] [place] [address]- Care Team Related Persons Name: MERLY VIRAMONTES Address: [place] [address] Name: HANG SUN
--- OUTSIDE RECORDS SUMMARY | 2024-04-09 00:19 | XMS_ITS | Continuity of Care Document ---
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 Role Phone Jeanmarie Drake DO Stacy Primary Care Physician Encounter [facility] [place] Date(s): 10/17/22 - 11/16/22 [facility] [address] [place] [address]- Allergies, Adverse Reactions, Alerts Substance Reaction Severity Status lisinopril swollen tongue Active Vicodin Active CeleBREX hives, breathing dif ficulty Seafood allergy swelling all over Active Latex Active Seafood difficulty breathing Active Medications Citracal Maximum + D oral tablet 2 tablet, By Mouth, Daily, # 120 tablet, 0 Refills, Maintenance, 08/03/22 18:14:00 EST, Tablet, [facility], Partial fill upon patient [...] Reference Physician Member Role: PCP Address: Address: [address] [place] [address] [place] [address]- Care Team Related Persons Name: MERLY VIRAMONTES Address: [place] [address] Name: HANG SUN
--- OUTSIDE RECORDS SUMMARY | 2024-04-09 00:19 | XMS_ITS | Continuity of Care Document ---
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 [place] Date(s): 06/14/22 - 06/21/[address] [place] [address]- Attending Physician: Cinda SKINNER, Anupam Referring Physician: Julian Santiago MD Allergies, Adverse Reactions, Alerts Substance Reaction Severity Status lisinopril swollen tongue Active Vicodin Active CeleBREX hives, breathing dif ficulty Seafood allergy swelling all over Active Seafood difficulty breathing Active Latex Active Medications diclofenac 1% topical gel 1 application, Topically, [...] oldest [Reference Range]: 1 Height 170 cm (06/14/22 12:13 PM) Weight 86.9 kg (06/14/22 12:13 PM) Pulse Rate [55-90 bpm] 80 bpm (06/14/22 12:13 PM) Body Mass Index [18.5-24.99 kg/m2] 30.07 kg/m2 *>HHI* (06/14/22 12:13 PM) Blood Pressure [90-138/55-84 mm Hg] 163/ 103mm Hg *H* (06/14/22 12:13 PM) Respiratory Rate [16-30 br/min] 20 br/mi n (06/14/22 12:13 PM) Temperature [96.8-100.4 DegF] 97.0 DegF (06/14/22 12:13 PM) Blood pressure sites Arm, left (06/14/22 12:13 PM) Temperature Route Temporal (06/14/22 12:13 PM) Weight Obtained Via Standing scale (06/14/22 12:13 PM) Patient Care team information Personnel Name: Jeanmarie Drake DO Address: Address: [address] [place] [address] Internal Medicine [place], [place] [address]
--- NOTE | 2024-04-09 00:22 | ED_ITS ---
HPI - Back Pain/Injury General Chief Complaint: Back Pain/Injury Stated Complaint: work inj, back and leg pain Time Seen by Provider: 04/09/24 00:15 Source: patient Mode of arrival: ambulatory Limitations: no limitations History of Present Illness ED Provider: Dr. 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 Now with pain radiating down her right leg. She has a history of a prior herniated disk. MD elicited complaint: back pain and back injury Pertinent past history: prior back pain Onset (ago): hour(s) Severity: moderate Related Data Home Medications ?Medication ?Instructions ?Recorded ?Confirmed famotidine 40 mg tablet 1 tab PO DAILY PRN Acid Reflux 05/22/22 08/28/23 losartan 50 mg tablet 1 tab PO DAILY 05/22/22 08/28/23 omeprazole 40 mg capsule,delayed 1 cap PO DAILY 05/22/22 08/28/23 release Previous Rx's ?Medication ?Instructions ?Recorded ondansetron 4 mg disintegrating 4 mg PO Q8H 3 days #9 tabs 08/18/22 tablet diazepam 5 mg tablet (Valium) 5 mg PO TID PRN muscle spasm #10 08/16/23 tabs lidocaine 5 % topical patch 1 patch topical DAILY #30 ea 08/16/23 methylprednisolone 4 mg tablets in See Rx Instructions PO PER PKG DIR 08/28/23 a dose pack (Medrol (Yousuf)) #21 ea cyclobenzaprine 10 mg tablet 10 mg PO TID #10 tabs 04/09/24 naproxen 500 mg tablet (Naprosyn) 500 mg PO BID #20 tabs 04/09/24 Allergies Allergy/AdvReac Type Severity Reaction Status Date / Time latex Allergy Swelling Verified 04/08/24 22:15 celecoxib [From Celebrex] AdvReac Intermediate Swelling Verified 04/08/24 22:15 lisinopril AdvReac Intermediate Swelling Verified 04/08/24 22:15 metoprolol AdvReac Intermediate Swelling Verified 04/08/24 22:15 Review of Systems Review of Systems: Yes all other systems are reviewed and are negative Neurologic: Denies Sensory deficit (Neuro) PMFSH Past Medical History Medical History Bursitis of knee Poorly-controlled hypertension Surgical History History of section Social History Social History Advance Directives: No Advance Directives Information Provided: Yes Do you have a plan to hurt others: No Plan service: No Physical Exam Vital Signs: Vital Signs: Last Vital Signs Temp 98.0 F 04/09/24 00:00 Pulse 62 04/09/24 00:00 Resp 18 04/09/24 00:00 BP 196/94 H 04/09/24 00:00 Pulse Ox 100 04/09/24 00:00 O2 Del Method Room Air 04/09/24 00:00 BMI result Body Mass Index 33.1 Const: General: healthy appearing Nutritional Appearance: average body habitus Orientation/consciousness: oriented to person and patient oriented x3 Limitations: no limitations HEENT: Head: Yes normal to inspection Ears: external ears normal General nose exam: Normal external nose present Mouth: Normal oral and palatal mucosa present and oropharynx normal Throat: Yes posterior oropharynx normal Eyes: General: appearance normal, both eyes and all related structures Neck: Other: supple Neck: Yes normal visual inspection Chest: Chest palpation & inspection: normal inspection of the chest Resp: Auscultation: clear to auscultation bilaterally Cardio: Jugular venous distension: no JVD Rate: regular rate Rhythm: regular rhythm Heart sounds: S1 normal heart sound present and S2 normal heart sound present GI: Inspection: Yes normal to inspection Palpation (GI): Soft to palpation, nontender and No hepatosplenomegaly present Auscultation: normal bowel sounds Back/Spine/Pelvis: Other: Right SI Joint and Sciatic pain to palpation Skin: General skin exam: no rashes or lesions noted Neuro: General: oriented to person and patient oriented x3 Cranial nerves: Yes CN's II-XII intact bilaterally Motor exam (neuro): 5/5 motor strength present throughout Sensory Exam: No Sensory deficit (Neuro) Extrem: General: Yes normal to inspection Psych: Appearance: grossly normal Course Reevaluation(s) Reevaluation #1: patient with radicular pain secondary to sciatica and SI joint pain will treat with NSAIDs and flexeril Time: 00:52 Medications Administered Discontinued Medications Generic Name Dose Route Start Last Admin Trade Name Freq PRN Reason Stop Dose Admin Cyclobenzaprine HCl 10 mg 04/09/24 00:22 04/09/24 00:41 Cyclobenzaprine Hcl 10 Mg Tablet PO 04/09/24 00:23 10 mg ONCE ONE Administration Ketorolac Tromethamine 60 mg 04/09/24 00:22 04/09/24 00:40 Ketorolac Tromethamine 60 Mg/2 Ml Vial IM 04/09/24 00:23 60 mg ONCE ONE Administration Medical Decision Making Differential Diagnosis Differential Diagnoses: The differential diagnosis associated with the presentation includes (Sciatica, Sacroiliac joint pain, radicular pain) Lab Data Labs: Lab Results 04/09/24 Range/Units 00:29 Urine Color Yellow Urine Appearance Clear Urine pH 6.5 (5.0-9.0) Ur Specific South Range 1.015 (1.005-1.025) Urine Protein Negative (Neg-Trace) mg/dL Urine Glucose (UA) Negative (Negative) mg/dL Urine Ketones Negative (Negative) mg/dL Urine Blood Negative (Negative) Urine Nitrite Negative (Negative) Ur Leukocyte Esterase Negative (Negative) Urine RBC 0-2 (0-2) /HPF Urine WBC 0-5 (0-5) /HPF Ur Squamous Epith Cells 0-2 (0-2) /HPF Urine Bacteria None Seen (None Seen) Hyaline Casts 0-2 (0-2) /LPF Independent Interpretation I performed an independent interpretation of an: Plain X-Ray (Mild djd) Prescription Management I considered prescription management with: Antibiotic (no evidence of UTI on UA) Discharge Plan Discharge Clinical Impression: Strain of lumbar region, Lumbar radiculopathy, Sciatica Patient Disposition: Home, Self-Care Instructions: Sciatica (ED), Acute Low Back Pain (ED), Lumbar Radiculopathy (ED) Prescriptions: New cyclobenzaprine 10 mg tablet 10 mg PO TID Qty: 10 0RF naproxen [Naprosyn] 500 mg tablet 500 mg PO BID Qty: 20 0RF No Action losartan 50 mg tablet 1 tab PO DAILY famotidine 40 mg tablet 1 tab PO DAILY PRN (Reason: Acid Reflux) omeprazole 40 mg capsule,delayed release(DR/EC) 1 cap PO DAILY ondansetron 4 mg tablet,disintegrating 4 mg PO Q8H 3 Days Qty: 9 0RF lidocaine 5 % adhesive patch,medicated 1 patch topical DAILY Qty: 30 0RF Rx Instructions: leave on most painful area for up to 12 hrs diazepam [Valium] 5 mg tablet 5 mg PO TID PRN (Reason: muscle spasm) Qty: 10 0RF Rx Instructions: partial fill is okay methylprednisolone [Medrol (Yousuf)] 4 mg tablets,dose pack See Rx Instructions PO PER PKG DIR Qty: 21 0RF Rx Instructions: PO PER PKG DIR Print Language: Ghanaian
[2024-04-09 00:34] LABS: Appearance Urine Clear; Color Urine Yellow; Glucose Urine UA Negative (Negative); Leukocyte Esterase Urine Negative (Negative); Nitrite Urine Negative (Negative); PH 6.5 (5.0-9.0); Specific Gravity - Urine 1.015 (1.005-1.025); Urine Blood Negative (Negative); Urine Ketones Negative (Negative); Urine Protein Negative (Neg-Trace)
[2024-04-09 00:37] LABS: Bacteria Urine None Seen (None Seen); Hyaline Casts Urine 0-2 /LPF (0-2); RBC Urine 0-2 /HPF (0-2); Squamous Epithelial Cell Urine 0-2 /HPF (0-2); WBC Urine 0-5 /HPF (0-5)
[2024-04-09] MEDS: Ketorolac Tromethamine 60 MG/2 ML VIAL IM (00:40)
[2024-04-09] MEDS: Cyclobenzaprine HCl 10 MG TABLET PO (00:41)
--- NOTE | 2024-04-09 00:59 | PC.NURSE ---
Pt is a 53 y/o female who presents for evaluation of pain in her lower back that radiates down her right leg. 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 Denies any numbness or tingling in extremities, or loss of bladder/bowel control. Does have history of prior back in jury. No other compaints or concerns at this time.
[2024-04-09 01:23] VITALS: BP 136/80; PULSE 90; RESP 16; TEMP 36.6
== END 2024-04-09 01:26 | disposition home or self-care (01) ==
PROVIDERS: Emergency Provider Emergency Medicine; PCP Internal Medicine
DX: S39.012A Strain of muscle, fascia and tendon of lower back, initial encounter (principal); X50.9XXA Other and unspecified overexertion or strenuous movements or postures, initial encounter; M54.16 Radiculopathy, lumbar region; M54.41 Lumbago with sciatica, right side; Y93.F9 Activity, other caregiving; Y92.129 Unspecified place in nursing home as the place of occurrence of the external cause; Y99.0 Civilian activity done for income or pay
CPT/HCPCS: 72100; 81001; 96372; 99283; 99284; J1885

== ENCOUNTER 2025-04-13 08:06 | Emergency (ER) | payer OTHER, SELFPAY ==
--- NOTE | ~2025-04-13 | CT_ITS ---
EXAMINATION: CT ANGIOGRAM HEAD AND NECK CLINICAL INFORMATION: Dizziness, rule out stroke. COMPARISON: MRI brain on October 17, 2023. TECHNIQUE: Noncontrast axial imaging of the head was performed. This was followed by test bolus sequences and head and neck intravenous bolus administration 70mL of Omnipaque 350. Helical imaging was performed in the axial plane from the aortic arch to the skull vertex. The data was processed at the 3d technologist's workstation for generation of MIP sequences. Angled MIPs and volume rendered reformatted images were also generated at an offline 3D workstation. Stenoses are assessed in accordance with NASCET criteria unless otherwise indicated. This CT examination was performed using dose optimization techniques as appropriate, variously including the following: *Automated exposure control *Adjustment of mA and/or kV according to patient size (this includes techniques or standardized protocols for targeted exams where dose is matched to indication/reason for exam; i.e. extremities or head) *Use of iterative reconstruction technique DLP: 1452 mGy*cm FINDINGS: NONCONTRAST HEAD CT: There is no evidence of intracranial hemorrhage or extra-axial fluid collection. There is no mass effect, or edema. No CT evidence of acute territorial infarct. A few scattered focal white matter hypodensities are present. Ventricles, sulci, and cisterns are normal in size and configuration for patient age. No hydrocephalus. No midline shift. Globes and orbital contents image normally. No extracranial soft tissue abnormalities again noted is mixed retention cyst osseous pacifying the right maxillary sinus and present within the floor of the left.. No suspicious bony abnormalities. NECK CTA: -AORTIC ARCH: Normal in caliber. Mild atheromatous calcification. Three-vessel branching pattern. -GREAT VESSEL ORIGINS: Widely patent. No stenosis. -RIGHT COMMON CAROTID ARTERY: Normal in course and caliber to the level of the bifurcation. -CERVICAL RIGHT INTERNAL CAROTID ARTERY: Normal opacification without focal stenosis or occlusion. -LEFT COMMON CAROTID ARTERY: Normal in course and caliber to the level of the bifurcation. -CERVICAL LEFT INTERNAL CAROTID ARTERY: Normal opacification without focal stenosis or occlusion. -CERVICAL RIGHT VERTEBRAL ARTERY: Origin is off of the descending aortic arch. The vessel courses retrotracheal before ascending the neck. Codominant. No hemodynamically significant stenosis. -CERVICAL LEFT VERTEBRAL ARTERY: Codominant. Normal in course and caliber into the skull base. OTHER, SOFT TISSUES: -No lymphadenopathy or mass. No abnormal fluid collection or soft tissue swelling. -Normal thyroid. -Imaged superior mediastinal structures normal. -Imaged lung apices clear. CTA OF THE BRAIN: -INTRACRANIAL INTERNAL CAROTID ARTERIES: No focal stenosis or occlusion. -RIGHT ANTERIOR CEREBRAL ARTERY: Normal A1 segment.. Normal arborization of the distal segments. -LEFT ANTERIOR CEREBRAL ARTERY: Normal A1 segment.. Normal arborization of the distal segments. -ANTERIOR COMMUNICATING ARTERY: Normal. -RIGHT MIDDLE CEREBRAL ARTERY: Normal M1 segment of the MCA without focal stenosis or occlusion. Normal bifurcation. Normal arborization of the distal segments. -LEFT MIDDLE CEREBRAL ARTERY: Normal M1 segment of the MCA without focal stenosis or occlusion. Normal bifurcation. Normal arborization of the distal segments. -RIGHT VERTEBRAL ARTERY V4: Normal in course and caliber. -LEFT VERTEBRAL ARTERY V4: Normal in course and caliber. -BASILAR ARTERY: Normal without focal stenosis or occlusion. Normal appearance of the proximal superior cerebellar arteries. Normal basilar tip. -RIGHT POSTERIOR CEREBRAL ARTERY: Normal P1 segment. Normal opacification of the distal TIRE SPECIALIST segments. -LEFT POSTERIOR CEREBRAL ARTERY: Normal P1 segment. Normal opacification of the distal TIRE SPECIALIST segments. -POSTERIOR COMMUNICATING ARTERIES: Left posterior communicating artery is absent. The right demonstrates normal opacification without hemodynamically significant stenosis. CT/CT angio head neck IMPRESSION: NONCONTRAST HEAD CT: No intracranial hemorrhage or mass effect. No CT evidence of acute territorial infarct. Stable bilateral maxillary sinus mucous retention cyst with near complete opacification of the right and minimal opacification of the left maxillary sinuses. CTA NECK: No hemodynamically significant stenosis. CTA HEAD: No hemodynamically significant stenosis, no aneurysm. Electronically signed by: Flavio Sorenson MD 04/13/2025 11:48 AM EDT
[2025-04-13 08:16] VITALS: BP 158/88; PULSE 68; RESP 17; TEMP 36.9; O2SAT 98; BMI 31.2
[2025-04-13 08:26] VITALS: BP 158/96; PULSE 67; RESP 20; TEMP 36.7; O2SAT 99
[2025-04-13 08:29] VITALS: BP 158/96; PULSE 67; RESP 20; TEMP 36.7; O2SAT 99
--- OUTSIDE RECORDS SUMMARY | 2025-04-13 08:48 | XMS_ITS | Clinical Summary ---
Author Organization [facility] Address [address] [place] [id number] Phone Care Team Providers Care Multilith Operator Name Role Phone Quyen Farnsworth [employer] [facility] [employer] Unavailable [phone] Jeanmarie Drake DO Primary Care Provider [phone] Carl Ferguson MBBS Unavailable [phone] Allergies Active Allergy Reactions Criticality Noted Date Comments Celecoxib 12/24/2022 Other reaction(s): hives, breathing difficulty, Seafood allergy, swelling all over Cyclobenzaprine 12/30/2018 Gluten 05/19/2021 Latex, Natural Rubber 11/06/2017 Lisinopril Dizziness 05/06/2019 Other 01/28/2018 other Other reaction(s): difficulty breathing Shellfish Containing Products 2017 Hydrocodone-Acetaminophen Swelling 11/06/2017 Medications famotidine (PEPCID) 40 MG tablet 1 Active fluticasone propionate (FLONASE) 50 mcg/actuation nasal spray fluticasone propionate 50 mcg/actuation nasal spray,suspension USE 1 SPRAY(S) IN EACH NOSTRIL ONCE DAILY Active aspirin 81 MG EC tablet Take 81 mg by mouth daily. 3 Active rosuvastatin (CRESTOR) 40 MG tablet Take 40 mg by mouth daily. Active topiramate (TOPAMAX) 25 MG tablet Take 25 mg by mouth daily as needed. Active losartan (COZAAR) 50 MG tablet Take 2 tablets (100 mg total) by mouth daily. 60 tablet 5 Active Active Problems Problem Noted Date Diagnosed Date BRCA2 gene mutation positive 10/15/2024 Assessment & Plan (11/13/2024 5:44 PM EDT): IMPRESSION: This is a 54-year-old woman with the following diagnoses: Recent diagnosis of BRCA2 mutation Bilateral breast pain more on the right - resolved -no evidence of malignancy DISCUSSION: I discussed overall impression, natural history of the disease and further management in this regard. BRCA2 mutation is associated with significantly increased risk of breast cancer, ovarian cancer, pancreatic cancer and skin cancers. I discussed the screening recommendations for all these different cancers. I also discussed the current guidelines recommending prophylactic bilateral mastectomy and oophorectomy in patients with BRCA mutation. Patient would like to think about this. RECOMMENDATIONS: Breast cancer imaging: Patient to undergo mammograms and breast MRIs on a yearly basis and breast exam by physician on 6 monthly basis Ovarian/fallopian tube/peritoneal/uterine cancers: CA125 and pelvic ultrasound on 6 monthly basis Pancreatic cancer imaging: I discussed invasive versus noninvasive techniques for screening. Patient would prefer noninvasive screening. She will undergo annual MRI/MRCP Melanoma screening: Recommended dermatology evaluation on a yearly basis Also recommended that her first-degree relatives/siblings should undergo genetic testing Return for follow-up in 6 months Thank you very much for allowing to participate in this patient's care Assessment & Plan (10/18/2024 1:30 PM EST): IMPRESSION: This is a 53-year-old woman with the following diagnoses: Recent diagnosis of BRCA2 mutation Bilateral breast pain more on the right DISCUSSION: I discussed all her impression, natural history of the disease and further management in this regard. BRCA2 mutation is associated with significantly increased risk of breast cancer, ovarian cancer, pancreatic cancer and skin cancers. Patient is currently having bilateral breast pain concerning for an underlying malignancy. She is scheduled to undergo breast imaging in the next few weeks. I also discussed screening and further management for risk reduction strategies regarding her ovarian cancer, pancreatic cancer and skin cancer. RECOMMENDATIONS: She is scheduled to undergo bilateral breast imaging with mammogram and ultrasounds She will undergo consultation with GENERAL DUTY NURSE regarding consideration for bilateral oophorectomy I also recommended yearly skin exam for cancer screening by dermatology She will undergo pancreatic MRI as per current guidelines Return for follow-up in 2 to 3 weeks Thank you very much for allowing to participate in this patient's care Mass overlapping multiple quadrants of right joey ast 10/15/2024 Other chest pain 10/24/2022 Hematoma, nontraumatic, soft tissue 12/11/2021 Hyperparathyroidism 12/30/2018 Hypertension 12/30/2018 Vitamin D deficiency 12/30/2018 Hypercalcemia 12/30/2018 GERD (gastroesophageal reflux disease) 9 Screening for malignant neoplasm of cervix 04/17 Abnormal uterine bleeding (AUB) 01/29/2018 Assessment & Plan (04/17/2018 8:34 AM EDT): This is currently frequent and heavy, though interestingly the Hgb is normal; She declines another LNG IUD, though she had good results for almost 2 years; cannot give EE OCP due to HTN; P only OCP, Depo P and ablation all discussed as she declines hysterectomy as anabaptist issue for her Micronor given, can try higher dose daily norethindrone prn; SHG recommended if not helping (lining was only 2 mm on recent U/S) info on ablation given. The small size of the fibroids means UAE would not help Assessment & Plan (01/29/2018 11:54 AM EDT): We discussed Provera now to decrease bleeding-expected pattern reviewed. Labs sent and u/s ordered prior to appt with Dr. Minaya for consult regarding hysterectomy for management of heavy bleeding. Ibuprofen Rx given, cautioned to take with food and limit use due to hx GERD Intramural leiomyoma of uterus 01/29/2018 Assessment & Plan (01/29/2018 11:52 AM EDT): Previous u/s did not see any submucosal fibroids History of cervical dysplasia 08/19/2007 Overview (11/27/2023): LALIT 2 treated with LEEP 2007 Encounters Date Type Department Care Team Description 01/25/2025 Telephone [facility] [address], 10[address], [address] [place] [address] Quyen Farnsworth, [employer] [facility] from Last 3 Months Immunizations Immunization Administration Dates Next Due INFLUENZA, SPLIT VIRUS, TRIVALENT PF 07/20/2016 Influenza Quadrivalent w/ Preservative IM 2020,07/28/2018 Influenza, Unspecified Formulation 10/09/2022 Unknown Vaccine Or Immune Globulin 05/03/2015 Family History Medical History Relation Comments Breast cancer Father Prostate cancer Hyperlipidemia Father Hypertension Father Prostate cancer Father Breast cancer Maternal Grandmother Hyperlipidemia Mother Hypertension Mother Breast cancer Sister Bilateral breast cancer Relation Status Comments Father Alive Maternal Grandmother Mother Alive Sister Social History Tobacco Use Types Packs/Day Years Used Date Smoking Tobacco: Never Smokeless Tobacco: Never Tobacco Cessation:Counseling Given: Not Answered Alcohol Use Standard Drinks/Week Comments No 0 (1 standard drink = 0.6 oz pur e alcohol) Education Answer Date Recorded Are you interested in more education? Not on eric e 12/14/2022 Are you concerned about learning? Not on file 12/14/2022 No 12/14/2022 No 12/14/2022 Digital Access Answer Date Recorded No 01/14/2023 No 01/14/2023 Reliable internet access at home? Not on file 01/14/2023 Device with a working camera? Not on file Intimate Partner Violence Answer Date R ecorded Are you denied basic needs s uch as food, clothing, or medical care? No 07/05/2024 In the past 12 months have y ou been in a relationship with a person who hurts, threatens, or tries to control you? No 07/05/2024 Are you denied basic needs s uch as food, clothing, or medical care? No 07/05/2024 In the past 12 months have y ou been in a relationship with a person who hurts, threatens, or tries to control you? 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 Not on file Not on file Last Filed Vital Signs Vital Sign Reading Time Taken Comments Blood Pressure 146/90 11/12/2024 12:08 PM EDT Pulse 84 11/12/2024 12:08 PM EDT Temperature 36.6 C (97.9 F) 11/12/2024 12:08 PM EDT Respiratory Rate 16 07/05/2024 10:4 8 PM EST Oxygen Saturation 100% 11/12/2024 12: 08 PM EDT Inhaled Oxygen Concentration - - Weight 92.5 kg (203 lb 14.4 oz) 025 12:08 PM EDT Height 167.5 cm (5' 5.95 ) 11/12/2024 1 2:08 PM EDT Body Mass Index 32.97 11/12/2024 12:08 PM EDT Plan of Treatment Upcoming Encounters Date Type Department Care Team (Late st Contact Info) Description 11/13/2024 Procedure Pass [address] [address] 11/13/2024 Procedure Pass [address] [address] 05/10/2025 10:00 AM EDT Appointment [address] [address] Carl Ferguson MBBS [address] [place] [phone] [email or web address] 05/12/2025 10:35 AM EDT Appointment [address] [address] Carl Ferguson MBBS [address] [place] [phone] [email or web address] 05/17/2025 12:45 PM EDT Appointment [address] [address] Carl Ferguson MBBS [address] [place] [phone] [email or web address] Health Maintenance Due Date Last Done Comments Adult Td,Tdap Booster 1972 LIPID PANEL 1972 DEPRESSION SCREENING 1984 HEPATITIS C SCREENING 1990 HIV ONE-TIME SCREENING (18-6 5 YEARS) 1990 COLOGUARD 2017 COLONOSCOPY 2017 FIT TEST 2017 SIGMOIDOSCOPY 2017 VIRTUAL COLONOSCOPY 2017 COLORECTAL CANCER SCREENING 07/20/2020 FOBT 07/20/2020 07/20/2019 PNEUMOCOCCAL VACCINES (50+ years) (1 of 1 - PCV) 2022 ZOSTER VACCINES (1 of 2) 2022 COVID-19 VACCINE (2 - 2023-2 5 season) 2024 01/20/2021 BLOOD PRESSURE 05/15/2025 11/12/2024 MAMMOGRAM 10/29/2026 10/29/2024, 07/22/2023 PAP SMEAR 11/26/2026 11/27/2023, 04/16/2018, 04/16/2018 SCREENING FOR DIABETES 07/05/2027 07/05/2024 SMOKING STATUS SCREENING (On ce After 26 Yrs) Completed 10/29/2024 HEPATITIS A VACCINES Aged Out No long er eligible based on patient's age to complete this topic HIB VACCINES Aged Out No longer eligi ble based on patient's age to complete this topic MENINGOCOCCAL VACCINES (ACWY) Aged Out No longer eligible based on patient's age to complete this topic MENINGOCOCCAL VACCINES (B) Aged Out N o longer eligible based on patient's age to complete this topic Medical Devices Not on file Procedures Procedure Name Priority Date/Time Associated Diagnosis Comments BI MAMMOGRAM DIAGNOSTIC WITH TOMOSYNTHESIS WITH CAD (BILATERAL) Routine 10/29/2024 12:43 PM EDT Breast pain PAP TEST Routine 11/27/2023 12:00 AM EDT FECAL OCCULT BLOOD, MULTIPLE Routine 07/20/2019 3:06 PM EST Coffee ground emesis from Last 3 Months or Most Recently Relevant to Health Maintenance Results * BI MAMMOGRAM DIAGNOSTIC WITH TOMOSYNTHESIS WITH CAD (BILATERAL) (10/29/2024 12:43 PM EDT) Anatomical Region Laterality Modality Breast Left, Breast Right, Breast Bilateral Bila teral Mammography 10/29/2024 12:5 0 PM EDT Impressions 10/29/2024 1:26 PM EDT No imaging findings suspicious for malignancy. Clinical follow-up recommended as well as bilateral screening mammography in one year. BI-RADS 1 NEGATIVE Results and recommendations were communicated to the patient at time of examination. Narrative 10/29/2024 1:26 PM EDT BI MAMMOGRAM DIAGNOSTIC WITH TOMOSYNTHESIS WITH CAD (BILATERAL), BI US BREAST LIMITED (RIGHT) Additional patient information: Chronic right breast pain. COMPARISON: Comparison is made with relevant prior imaging. Breast composition: The breast tissue is almost entirely fatty. FINDINGS: Right Mammogram: No abnormal masses, suspicious calcifications, or other significant findings are identified mammographically in the right breast. Right Ultrasound: Targeted ultrasound was performed in the area of clinical concern as indicated by the patient. No sonographic abnormality is seen. Left Mammogram: No abnormal masses, suspicious calcifications, or other significant findings are identified mammographically in the left breast. us Rosy Carlson HEAD WOOD GRINDER IMG MG EXAMS Final Result * Pap Test (11/27/2023 12:00 AM EDT) 11/27/2023 11/28/2023 9:3 8 AM EDT Narrative SEE NARRATIVE - 12/05/2023 11:03 AM EDT [address] [address] Odd Job Laborer: Carly Colindres MD MOLDER SETTER Cytology Report FINAL DIAGNOSIS A. PAP SMEAR (SUREPATH) CE: SPECIMEN ADEQUACY: Satisfactory for evaluation; transformation zone present. INTERPRETATION: NEGATIVE FOR INTRAEPITHELIAL LESION OR MALIGNANCY. Electronically Signed Out By: MIRTA Rodriguez(ASCP) The Pap test is a screening test primarily for squamous cancers and precursors and has associated false-negative and false-positive results. New technologies such as liquid-based preparations may decrease but will not eliminate all false-negative results. Regular sampling and follow-up of unexplained clinical signs and symptoms are recommended to minimize false negative results. PROCEDURES/ADDENDA HPV Testing (Requested) Ordered Date: 11/28/2023 A. PAP SMEAR (SUREPATH) CE: Human Papilloma Virus Test NEGATIVE for high-risk Human Papilloma Virus types 16, 18, 45 and the Other high risk probe set (Includes 31, 33, 35, 39, 51, 52, 56, 58, 59, 66, 68) Note: Testing performed by [employer] HR-HPV analysis. Clinical correlation is advised. This HPV test was performed at [facility], [address] [place] [address]. This test has been FDA approved for both SurePath and ThinPrep cervical cytology specimens. The accuracy and precision of this test for all other specimen sources has been verified in the Cytopathology Laboratory of the [facility] and has not been cleared or approved by the U.S. Food and Drug Administration. Clinical correlation is advised. CLINICAL HISTORY Date of Last Menstrual Period: Not Provided Menstrual History: Post Menopausal Treatment History: LEEP: 2008 Other Clinical Conditions: Screening Pap SPECIMEN SOURCE A: PAP SMEAR (SUREPATH) CE Patient Name: DAYDAY ARIAS : 1970 (Age: 53) Sex: F Institution: [facility] Location: [facility] Date of Collection: 11/27/2023 Date of Reported: 12/05/2023 11:03 Results to: Lexi Kinney MD Lexi Kinney MD CYTOLOGY ORDERABLES Final Result SEE NARRATIVE * Fecal occult blood, multiple (07/20/2019 3:06 PM EST) FECAL OCC BLD 1 DATE 120,219 [facility] Occult bld, stool, #1 Negative Negative [facility] FECAL OCC BLD 2 DATE 120,119 [facility] OCCULT BLD, STOOL, #2 Negative Negative [facility] FECAL OCC BLD 3 DATE 113,019 [facility] FECAL OCC BLD 3 RSLT Negative Negative [facility] Stool (Stool) 07/20/2019 3:0 6 PM EST 07/20/2019 3:08 PM EST us Sepideh Sullivan PA-C BODY FLUIDS AND STOOLS ORDERABL ES Final Result [facility] [address] [place] [address] from Last 3 Months or Most Recently Relevant to Health Maintenance Insurance [facility] Care Teams Multilith Operator Relationship Specialty Start Date End Date Jeanmarie Drake DO [address] [place], [place] [email or web address] PCP - General Internal Medicine 10/01/24 Quyen Farnsworth CGC [address] [place] [phone] [email or web address] Counselor Genetics 08/18/24 Carl Ferguson MBBS [address] [place], [place] [email or web address] Primary Oncologist Medical Oncology 10/08/24 Additional Source Comments The information contained in this document represents components of the legal health record. It is not the complete legal health record.[facility]
--- OUTSIDE RECORDS SUMMARY | 2025-04-13 08:48 | XMS_ITS | Encounter Summary ---
Author Organization [facility] Address [address] [facility] [address] [place] [address] Phone Care Team Providers Care Stock Broker Supervisor Name Role Phone Quyen Farnsworth Erin [facility] Unavailable [phone] Jeanmarie Drake DO Primary Care Provider [phone] Carl Ferguson MBBS Unavailable [phone] Encounter Details Date Type Department Care Team (Late st Contact Info) Description 10/13/2024 Procedure Pass [facility] [address] [place] [address] Social History Tobacco Use Types Packs/Day Years Used Date Smoking Tobacco: Never Smokeless Tobacco: Never Alcohol Use Standard Drinks/Week Comments No 0 [...] 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 Not on file Not on file documented as of this encounter Plan of Treatment Upcoming Encounters Date Type Department Care Team (Late st Contact Info) Description 11/13/2024 Procedure Pass [address] [address] 11/13/[address] [address] 05/10/2025 10:00 AM EDT Appointment [address] [address] Carl Ferguson MBBS [address] [place] [address] [email or web address] 05/12/2025 10:35 AM EDT Appointment [address] [address] Carl Ferguson MBBS [address] [place] [address] [email or web address] 05/17/2025 12:45 PM EDT Appointment [address] [address] Carl Ferguson MBBS [address] [place] [address] [email or web address] documented as of this encounter Visit Diagnoses Not on filedocumented in this encounter Care Teams Stock Broker Supervisor Relationship Specialty Start Date End Date Jeanmarie Drake DO [address] [place] [address] [email or web address] PCP - General Internal Medicine 10/01/24 Quyen Farnsworth CGC [address] [place] [address] [email or web address] Genetic Counselor Genetics 08/18/24 Carl Ferguson MBBS [address] [place] [address] [email or web address] Primary Oncologist Medical Oncology 10/08/24 documented as of this encounter Additional Source Comments The information contained in this document represents components of the legal health record. It is not the complete legal health record.[facility]
--- OUTSIDE RECORDS SUMMARY | 2025-04-13 08:48 | XMS_ITS | Encounter Summary ---
Author Organization [facility] Address [address] [place] [address] [place] [address] Phone Care Team Providers Care Dumpster Driver Name Role Phone Zandramo Jeanmarie Stacy Primary Care Provider [phone] Bigda, Jeanmarie Kumar DO Unavailable Quyen Farnsworth [facility] Unavailable [phone] Bigda, Jeanmarie A DO Primary Care Provider [phone] Carl Ferguson MBBS Unavailable [phone] Encounter Details Date Type Department Care Team (Latest Contact Info) Description 12/02/2018 Transcribe Orders Virtual Department [address] [place] [address] Oralia Whiteside, TUBE MAKING MACHINE OPERATOR [address] [place] [address] [email or web address] Hyperparathyroidism (Primary Dx) Social History Tobacco Use Types Packs/Day Years Used Date Smoking Tobacco: Never Smokeless Tobacco: Never Alcohol Use Standard Drinks/Week Comments No 0 (1 standard drink = 0.6 oz pur e alcohol) Comments No Sex and Gender Information Value Date Recorded Sex Assigned at Female 11/06/2017 8:37 PM EDT Legal Sex Female 9:32 PM EDT Gender Identity Female 11/06/2017 8:37 PM EDT Sexual Orientation Choose not to disclose 2017 8:09 AM EDT 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 file Not on file documented as of this encounter Plan of Treatment Upcoming Encounters Date Type Department Care Team (Late st Contact Info) Description 11/13/2024 Procedure Pass [address] [address] 11/13/2024 Procedure Pass [address] [address] 05/10/2025 10:00 AM EDT Appointment [address] [address] Carl Ferguson MBBS [address] [place] [address] [email or web address] 05/12/2025 10:35 AM EDT Appointment [address] [address] Carl Ferguson MBBS [address] [place] [address] [email or web address] 05/17/2025 12:45 PM EDT Appointment [address] [address] Carl Ferguson MBBS [address] [place] [address] [email or web address] documented as of this encounter Results * US Thyroid Gland (12/12/2018 2:53 PM EDT) Anatomical Region Laterality Modality Neck, Head, Chest Ultrasound 12/12/2018 3:02 PM EDT Impressions 12/12/2018 3:11 PM EDT Bilateral thyroid nodules and complex cysts, none of which display particular worrisome morphologic features. No parathyroid mass identified but scintigraphic imaging could be considered if surgery is contemplated. POS - [id number] Narrative 12/12/2018 3:11 PM EDT COMPARISON: None FINDINGS: Right thyroid lobe measures 5.2 x 1.2 x 1.9 cm in span. There is a 6 x 3 x 6 mm hypoechoic nodule in the upper pole, 5 x 4 x 5 mm cystic lesion with a 4 x 2 x 4 mm solid component in the interpolar cortex, a 4 x 2 x 4 mm hypoechoic nodule in the upper portion of the lower pole, and an 8 x 5 x 8 mm hypoechoic nodule containing a 2 mm cystic component present in the caudal aspect of the lower pole. Left lobe measures 4.9 x 1.2 x 1.9 cm with a 7 x 5 x 8 mm cyst containing small faint echogenic foci present in the caudal aspect of the lower pole. Left thyroid lobe is otherwise homogeneous echo-texture. The isthmus is not enlarged. No parathyroidal mass visualized. Procedure Note Kierra Vieira MD - 12/12/2018 COMPARISON: None FINDINGS: Right thyroid lobe measures 5.2 x 1.2 x 1.9 cm in span. There is a 6 x 3x 6 mm hypoechoic nodule in the upper pole, 5 x 4 x 5 mm cystic lesionwith a 4 x 2 x 4 mm solid component in the interpolar cortex, a 4 x 2 x 4mm hypoechoic nodule in the upper portion of the lower pole, and an 8 x 5x 8 mm hypoechoic nodule containing a 2 mm cystic component present in thecaudal aspect of the lower pole. Left lobe measures 4.9 x 1.2 x 1.9 cm with a 7 x 5 x 8 mm cyst containingsmall faint echogenic foci present in the caudal aspect of the lower pole.Left thyroid lobe is otherwise homogeneous echo-texture. The isthmus isnot enlarged. No parathyroidal mass visualized. IMPRESSION: Bilateral thyroid nodules and complex cysts, none of which displayparticular worrisome morphologic features. No parathyroid mass identifiedbut scintigraphic imaging could be considered if surgery iscontemplated. POS - [id number] us Oralia Whiteside TUBE MAKING MACHINE OPERATOR IMG US THYROID Final Resul t documented in this encounter Visit Diagnoses Diagnosis Hyperparathyroidism- Primary Hyperparathyroidism, unspecified Hyperparathyroidism Hyperparathyroidism, unspecified documented in this encounter Additional Health Concerns Infection Onset Date Last Indicated Resolved Time CoV-Risk Comment:Per Ambulatory Triage Form 09/26/2021 09/26/202110/06 1:23 AM EST CoV-Risk 01/23/2022 01/23/2022 02/03/2022 1:24 AM EDT documented as of this encounter Care Teams Dumpster Driver Relationship Specialty Start Date End Date Jeanmarie Drake DO [email or web address] PCP - General 08/22/17 09/30/24 Jeanmarie Drake DO [address] [place] [address] [email or web address] PCP - General Internal Medicine 10/01/24 Jeanmarie Drake DO [address] [place] [address] [email or web address] Insurance Assigned Provider 06/24/21 01/05/23 Quyen Farnsworth CGC [address] [place] [address] [email or web address] Genetic Counselor Genetics 08/18/24 Carl Ferguson MBBS [address] [place] [address] [email or web address] Primary Oncologist Medical Oncology 10/08/24 documented as of this encounter Additional Source Comments The information contained in this document represents components of the legal health record. It is not the complete legal health record.[facility]
--- OUTSIDE RECORDS SUMMARY | 2025-04-13 08:48 | XMS_ITS | Encounter Summary ---
Author Organization [facility] Address [address] [facility] [address] [place] [address] Phone Care Team Providers Care Chicken And Fish Butcher Name Role Phone Quyen Farnsworth Erin EDWARDS Unavailable [phone] Jeanmarie Drake DO Primary Care Provider [phone] Carl Ferguson Unavailable [phone] Reason for Referral * Outpatient Procedure - Closed Specialty Diagnoses / Procedures Referred By Husam ruth Referred To Contact Radiology Diagnoses Breast pain Procedures US Breast (Right) US Breast (Bilateral) Carl Ferguson MBBS [address] [facility] [place] [address] Phone: tel: fax: [email or web address] Referral ID Status Reason Start Date Expiration Date Visits Re quested Visits Authorized [id number] Closed 10/01/2024 10/01/2025 1 1 Encounter Details Date Type Department Care Team (Late st Contact Info) Description 10/29/2024 Ancillary Orders [facility] [address] [place] [address] Carl Ferguson MBBS [address] [place] [address] [email or web address] Breast pain (Primary Dx) Social History Tobacco Use Types [...] 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 Not on file documented as of this encounter Plan of Treatment Upcoming Encounters Date Type Department Care Team (Late st Contact Info) Description 11/13/2024 Procedure Pass [address] [address] 11/13/2024 Procedure Pass [address] [address] 05/10/2025 10:00 AM EDT Appointment [address] [address] Carl Ferguson MBBS [address] [place] [address] [email or web address] 05/12/2025 10:35 AM EDT Appointment [address] [address] Carl Ferguson MBBS [address] [place] [address] [email or web address] 05/17/2025 12:45 PM EDT Appointment [address] [address] Carl Ferguson [address] [address] [email or web address] documented as of this encounter Results * BI US BREAST LIMITED (RIGHT) (10/29/2024 1:17 PM EDT) Anatomical Region Laterality Modality Breast Right, Breast Bilateral Right U ltrasound 10/29/2024 12:5 0 PM EDT Impressions 10/29/2024 [...] are identified mammographically in the left breast. Carl [facility] US BREAST Final Resu lt documented in this encounter Visit Diagnoses Diagnosis Breast pain Mastodynia Breast pain- Primary Mastodynia documented in this encounter Care Teams Chicken And Fish Butcher Relationship Specialty Start Date End Date Jeanmarie Drake DO [address] [place] [address] [email or web address] PCP - General Internal Medicine 10/01/24 Quyen Farnsworth CGC [address] [place] [address] [email or web address] Genetic Counselor Genetics 08/18/24 Carl Ferguson MBBS [address] [place] [address] [email or web address] Primary Oncologist Medical Oncology 10/08/24 documented as of this encounter Additional Source Comments The information contained in this document represents components of the legal health record. It is not the complete legal health record.[facility]
--- OUTSIDE RECORDS SUMMARY | 2025-04-13 08:48 | XMS_ITS | Encounter Summary ---
Author Organization [facility] Address [address] [place] [address] [place] [address] Phone Care Team Providers Care Machine Finisher Name Role Phone Jeanmarie Drake DO Primary Care Provider [phone] Jeanmarie Drake DO Unavailable Quyen Farnsworth [facility] Unavailable [phone] Bigda, Jeanmarie Kumar DO Primary Care Provider [phone] Carl Ferguson MBBS Unavailable [phone] Encounter Details Date Type Department Care Team (Late st Contact Info) Description 03/10/2021 Procedure Pass [facility], Ct Scan - [address] [address] Social History Tobacco Use Types Packs/Day Years [...] 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 Wish to be (Past 1 Month) No 021 11:47 AM EDT Kim You, RN 2. Non-Specific Active Suici dora Thoughts (Past 1 Month) No 03/10/2021 11:47 AM EDT John You, RN 6. Suicidal Behavior (Lifetime) No 11:47 AM EDT Kim You, CHAVA documented as of this encounter Plan of Treatment Upcoming Encounters Date Type Department Care Team (Late st Contact Info) Description 11/13/2024 Procedure Pass [address] [address] 11/13/2024 Procedure Pass [address] [address] 05/10/2025 10:00 AM EDT Appointment [address] [address] Carl Ferguson MBBS [address] [place] [address] [email or web address] 05/12/2025 10:35 AM EDT Appointment [address] [address] Carl Ferguson MBBS [address] [place] [address] [email or web address] 05/17/2025 12:45 PM EDT Appointment [address] [address] Carl Ferguson MBBS [address] [place] [address] [email or web address] documented as of this encounter Visit Diagnoses Not on filedocumented in this encounter Additional Health Concerns Infection Onset Date Last Indicated Resolved Time CoV-Risk Comment:Per Ambulatory Triage Form 09/26/2021 09/26/202110/06 1:23 AM EST CoV-Risk 01/23/2022 01/23/2022 02/03/2022 1:24 AM EDT documented as of this encounter Care Teams Machine Finisher Relationship Specialty Start Date End Date Jeanmarie Drake DO [email or web address] PCP - General 08/22/17 09/30/24 Jeanmarie Drake DO [address] [place] [address] [email or web address] PCP - General Internal Medicine 10/01/24 Jeanmarie Drake DO [address] [place] [address] [email or web address] Insurance Assigned Provider 06/24/21 01/05/23 Quyen Farnsworth CGC [address] [place] [address] [email or web address] Genetic Counselor Genetics 08/18/24 Carl Ferguson MBBS [address] [place] [address] [email or web address] Primary Oncologist Medical Oncology 10/08/24 documented as of this encounter Additional Source Comments The information contained in this document represents components of the legal health record. It is not the complete legal health record.[facility]
--- OUTSIDE RECORDS SUMMARY | 2025-04-13 08:48 | XMS_ITS | Encounter Summary ---
Author Organization [facility] Address [address] [facility] [address] [place] [address] Phone Care Team Providers Care Director Of Professional Services Name Role Phone Quyen Farnsworth Erin [facility] Unavailable [phone] Jeanmarie Drake DO Primary Care Provider [phone] Carl Ferguson MBBS Unavailable [phone] Encounter Details Date Type Department Care Team (Late st Contact Info) Description 10/01/2024 Procedure Pass [facility] [address] [place] [address] Social History Tobacco Use Types Packs/Day Years [...] 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 05/12/2025 10:35 AM EDT Appointment [address] [address] Carl Ferguson MBBS [address] [place] [address] [email or web address] 05/17/2025 12:45 PM EDT Appointment [address] [address] Carl Ferguson MBBS [address] [place] [address] [email or web address] documented as of this encounter Visit Diagnoses Not on filedocumented in this encounter Care Teams Director Of Professional Services Relationship Specialty Start Date End Date Jeanmarie Drake DO [address] [place] [address] [email or web address] PCP - General Internal Medicine 10/01/24 Quyen Farnsworth CGC [address] [place] [address] [email or web address] Genetic Counselor Genetics 08/18/24 Carl Ferguson MBBS [address] [place] [address] [email or web address] Primary Oncologist Medical Oncology 10/08/24 documented as of this encounter Additional Source Comments The information contained in this document represents components of the legal health record. It is not the complete legal health record.[facility]
--- OUTSIDE RECORDS SUMMARY | 2025-04-13 08:48 | XMS_ITS | Encounter Summary ---
Author Organization [facility] Address [address] [place] [address] Phone Care Team Providers Care Agricultural Economics Teacher Name Role Phone Jeanmarie Drake Stacy Primary Care Provider [phone] Jeanmarie Drake DO Unavailable Quyen Farnsworth [facility] Unavailable [phone] Bigda, Jeanmarie Kumar DO Primary Care Provider [phone] Carl Ferguson MB Unavailable [phone] Encounter Details Date Type Department Care Team (Late st Contact Info) Description 05/20/2021 Procedure Pass [address] [address] Social History Tobacco Use Types Packs/Day Years [...] 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 05/12/2025 10:35 AM EDT Appointment [address] [address] Carl Ferguson, [address] [address] [email or web address] 05/17/2025 12:45 PM EDT Appointment [address] [address] Carl Ferguson, [address] [address] [email or web address] documented as of this encounter Visit Diagnoses Not on filedocumented in this encounter Additional Health Concerns Infection Onset Date Last Indicated Resolved Time CoV-Risk Comment:Per Ambulatory Triage Form 09/26/2021 09/26/202110/06 1:23 AM EST CoV-Risk 01/23/2022 01/23/2022 02/03/2022 1:24 AM EDT documented as of this encounter Care Teams Agricultural Economics Teacher Relationship Specialty Start Date End Date Jeanmarie Drake DO [email or web address] PCP - General 08/22/17 09/30/24 Jeanmarie Drake DO [address] [place] [address] [email or web address] PCP - General Internal Medicine 10/01/24 Jeanmarie Drake DO [address] [place] [address] [email or web address] Insurance Assigned Provider 06/24/21 01/05/23 Quyen Farnsworth CGC [address] [place] [address] [email or web address] Genetic Counselor Genetics 08/18/24 Carl Ferguson MBBS [address] [place] [address] [email or web address] Primary Oncologist Medical Oncology 10/08/24 documented as of this encounter Additional Source Comments The information contained in this document represents components of the legal health record. It is not the complete legal health record.[facility]
--- OUTSIDE RECORDS SUMMARY | 2025-04-13 08:48 | XMS_ITS | Encounter Summary ---
Author Organization [facility] Address [address] [place] [address] Phone Care Team Providers Care Patient Care Representative Name Role Phone Jeanmarie Drake DO Primary Care Provider [phone] Jeanmarie Drake DO Unavailable Javad Quyen Z [facility] Unavailable [phone] Vidal, Jeanmarie Kumar DO Primary Care Provider [phone] Carl Ferguson MBBS Unavailable [phone] Reason for Referral * MRI/CAT Scan - Closed Specialty Diagnoses / Procedures Referred By Husam ruth Referred To Contact Radiology Diagnoses Abdominal pain, unspecified abdominal location Procedures CT Abdomen/Pelvis Es Jones PA-C Phone: tel: fax: Referral ID Status Reason Start Date Expiration Date Visits Re quested Visits Authorized [id number] Closed 04/24/2019 06/23/2019 1 1 Encounter Details Date Type Department Care Team (Latest Contact Info) Description 04/24/2019 Transcribe Orders Virtual Department [address] [place] [address] Es Jones PA-C 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 Not on file documented as of this encounter Plan of Treatment Upcoming Encounters Date Type Department Care Team (Late st Contact Info) Description 11/13/2024 Procedure Pass [address] [address] 11/13/2024 Procedure Pass [address] [address] 05/10/2025 10:00 AM EDT Appointment [address] [address] Carl Ferguson MBBS [address] [place] [address] [email or web address] 05/12/2025 10:35 AM EDT Appointment [address] [address] Carl Ferguson MBBS [address] [place] [address] [email or web address] 05/17/2025 12:45 PM EDT Appointment [address] [address] Carl Ferguson MBBS [address] [place] [address] [email or web address] documented as of this encounter Results * CT ABDOMEN/PELVIS WITH CONTRAST (05/01/2019 10:39 AM EDT) Anatomical Region Laterality Modality Abdomen, Pelvis Computed Tomogra phy 05/01/2019 12:0 2 PM EDT Impressions 05/01/2019 12:24 PM EDT 1. No evidence of bowel obstruction. Moderate amount of fecal load within the colonic loops. 2. Diffuse wall thickening of the stomach, likely secondary to decompression. 3. Pancreatic duct is not dilated on today's study. TOTAL CTDIvol: 8.6 mGy POS - [id number] Narrative 05/01/2019 12:24 PM EDT EXAM: CT ABDOMEN/PELVIS WITH CONTRAST CT OF ABDOMEN AND PELVIS WITH INTRAVENOUS CONTRAST COMPARISON: Abdominal/pelvis CT on January 05, 2019. INDICATION: SIGNIFICANT LOWER ABDOMINAL TTP, H/O COFFEE GROUND VOMITING 4 DAYS AGO, LAST BM UNKNOWN, CANT REMEMBER ? BOWEL OBSTRICTION. TECHNIQUE: CT scan of the abdomen and pelvis was performed following the intravenous administration of 100 cc of Omnipaque 240 and oral contrast. Coronal and sagittal reformatted images were generated. Automated exposure control utilized. FINDINGS: LOWER THORAX: Lung bases are clear. No pleural effusion. HEPATOBILIARY: No hepatomegaly. No discrete focal hepatic lesions. Focal ill-defined hypodensity adjacent to the falciform ligament likely represents focal fatty infiltration. No extra- or intrahepatic ductal dilatation. Decompressed gallbladder. No calcified gallstones. SPLEEN: No splenomegaly. PANCREAS: Unremarkable. Pancreatic duct is not dilated on today's study. ADRENAL GLANDS: No mass. KIDNEYS AND URETERS: The kidneys enhance symmetrically. No hydronephrosis, hydroureter or mass. STOMACH/GI TRACT: Oral contrast reaches the colonic hepatic flexure without obstruction. Stomach is decompressed. Diffuse wall thickening of the stomach is likely due to decompression. No bowel distention. Normal appendix identified on the coronal 6:42. Moderate amount of fecal load within the colonic loops. PELVIC ORGANS/BLADDER: Urinary bladder is decompressed. Mildly enlarged uterus with lobulated contour likely represent uterine leiomyomas. Cysts in bilateral ovaries measuring up to 4.1 cm, most likely physiologic follicles. PERITONEUM AND RETROPERITONEUM: No free fluid, fluid collection or free air. LYMPH NODES: No enlarged retroperitoneal, mesenteric or pelvic lymph nodes. VESSELS: Abdominal aorta and iliac arteries are normal in caliber. Inferior vena cava is unremarkable. BONES AND SOFT TISSUES: Soft tissues are unremarkable. No acute or suspicious osseous abnormalities. Procedure Note Danyelle Miranda MD - 05/01/2019 EXAM: CT ABDOMEN/PELVIS WITH CONTRAST CT OF ABDOMEN AND PELVIS WITH INTRAVENOUS CONTRAST COMPARISON: Abdominal/pelvis CT on January 05, 2019. INDICATION: SIGNIFICANT LOWER ABDOMINAL TTP, H/O COFFEE GROUNDVOMITING 4 DAYS AGO, LAST BM UNKNOWN, CANT REMEMBER ? BOWEL OBSTRICTION. TECHNIQUE: CT scan of the abdomen and pelvis was performed following theintravenous administration of 100 cc of Omnipaque 240 and oral contrast.Coronal and sagittal reformatted images were generated. Automatedexposure control utilized. FINDINGS: LOWER THORAX: Lung bases are clear. No pleural effusion. HEPATOBILIARY: No hepatomegaly. No discrete focal hepatic lesions. Focalill- defined hypodensity adjacent to the falciform ligament likelyrepresents focal fatty infiltration. No extra- or intrahepatic ductaldilatation. Decompressed gallbladder. No calcified gallstones. SPLEEN: No splenomegaly. PANCREAS: Unremarkable. Pancreatic duct is not dilated on today'sstudy. ADRENAL GLANDS: No mass. KIDNEYS AND URETERS: The kidneys enhance symmetrically. Nohydronephrosis, hydroureter or mass. STOMACH/GI TRACT: Oral contrast reaches the colonic hepatic flexurewithout obstruction. Stomach is decompressed. Diffuse wall thickening ofthe stomach is likely due to decompression. No bowel distention. Normalappendix identified on the coronal 6:42. Moderate amount of fecal loadwithin the colonic loops. PELVIC ORGANS/BLADDER: Urinary bladder is decompressed. Mildly enlargeduterus with lobulated contour likely represent uterine leiomyomas. Cystsin bilateral ovaries measuring up to 4.1 cm, most likely physiologicfollicles. PERITONEUM AND RETROPERITONEUM: No free fluid, fluid collection or freeair. LYMPH NODES: No enlarged retroperitoneal, mesenteric or pelvic lymphnodes. VESSELS: Abdominal aorta and iliac arteries are normal in caliber.Inferior vena cava is unremarkable. BONES AND SOFT TISSUES: Soft tissues are unremarkable. No acute orsuspicious osseous abnormalities. IMPRESSION: 1. No evidence of bowel obstruction. Moderate amount of fecal load withinthe colonic loops. 2. Diffuse wall thickening of the stomach, likely secondary todecompression. 3. Pancreatic duct is not dilated on today's study. TOTAL CTDIvol: 8.6 mGy POS - [id number] November Robert PA-C IMG CT ABD/PELVIS Final Resu lt * XR CHEST PA AND LATERAL 2 VIEWS (04/27/2019 1:24 PM EDT) Anatomical Region Laterality Modality Chest Radiographic Kassie ging 04/27/2019 1:27 PM EDT Impressions 04/27/2019 1:29 PM EDT Stable appearance relative to prior imaging. No acute pulmonary process or explanation for cough is seen. No free intraperitoneal air is evident. S/S: <N/A> no indication applies (use free text below) cough, vomiting, abdominal pain POS - [id number] Narrative 04/27/2019 1:29 PM EDT COMPARISON: Chest x-ray 11/07/2018 FINDINGS: PA and lateral imaging of the chest is obtained. The heart size is at the upper range of normal. No acute pulmonary process is noted. No infiltration is seen. No pneumothorax or pleural fluid is noted. The aortic contour is unremarkable. There are mild degenerative changes in the thoracic spine. No acute compression fracture is noted. Procedure Note Farooq Reyes MD - 04/27/2019 COMPARISON: Chest x-ray 11/07/2018 FINDINGS: PA and lateral imaging of the chest is obtained. The heart size is at the upper range of normal. No acute pulmonary process is noted. No infiltration is seen. No pneumothorax or pleural fluid is noted. The aortic contour is unremarkable. There are mild degenerative changes in the thoracic spine. No acutecompression fracture is noted. IMPRESSION: Stable appearance relative to prior imaging. No acute pulmonary process orexplanation for cough is seen. No free intraperitoneal air is evident. S/S: <N/A> no indication applies (use free text below) cough, vomiting,abdominal pain POS - [id number] November Robert HICKS IMG XR CHEST Final Result documented in this encounter Visit Diagnoses Diagnosis Cough- Primary Abdominal pain, unspecified abdominal location Cough Abdominal pain, unspecified abdominal location documented in this encounter Additional Health Concerns Infection Onset Date Last Indicated Resolved Time CoV-Risk Comment:Per Ambulatory Triage Form 09/26/2021 09/26/202110/06 1:23 AM EST CoV-Risk 01/23/2022 01/23/2022 02/03/2022 1:24 AM EDT documented as of this encounter Care Teams Patient Care Representative Relationship Specialty Start Date End Date Jeanmarie Drake DO [email or web address] PCP - General 08/22/17 09/30/24 Jeanmarie Drake DO [address] [place] [address] [email or web address] PCP - General Internal Medicine 10/01/24 Jeanmarie Drake DO [address] [place] [address] [email or web address] Insurance Assigned Provider 06/24/21 01/05/23 Quyen Farnsworth CGC [address] [place] [address] [email or web address] Genetic Counselor Genetics 08/18/24 Carl Ferguson MBBS [address] [place] [address] [email or web address] Primary Oncologist Medical Oncology 10/08/24 documented as of this encounter Additional Source Comments The information contained in this document represents components of the legal health record. It is not the complete legal health record.[facility]
--- OUTSIDE RECORDS SUMMARY | 2025-04-13 08:48 | XMS_ITS | Encounter Summary ---
Author Organization [facility] Address [address] [place] [address] Phone Care Team Providers Care Floor Runner Name Role Phone Zandramo Jeanmarie Stacy Primary Care Provider [phone] Bigda, Jeanmarie Kumar DO Unavailable Quyen Farnsworth [facility] [place] [place] Unavailable [phone] Bigda, Jeanmarie A DO Primary Care Provider [phone] Carl Ferguson MBBS Unavailable [phone] Encounter Details Date Type Department Care Team (Late Contact Info) Description 12/02/2018 Transcribe Orders Virtual Department [address] [place] [address] Oralia Whiteside, BREWERY PUMPER [address] [place] [address] Social History Tobacco Use Types Packs/Day Years [...] 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 documented as of this encounter Plan of Treatment Upcoming Encounters Date Type Department Care Team (Late st Contact Info) Description 11/13/2024 Procedure Pass [address] [address] 11/13/2024 Procedure Pass [address] [address] 05/10/2025 10:00 AM EDT Appointment [address] [address] Carl Ferguson MBBS [address] [place] [address] [email or web address] 05/12/2025 10:35 AM EDT Appointment [address] [address] Carl Ferguson MBBS [address] [place] [address] [email or web address] 05/17/2025 12:45 PM EDT Appointment [address] [address] Carl Ferguson [address] [address] [email or web address] documented as of this encounter Visit Diagnoses Not on filedocumented in this encounter Additional Health Concerns Infection Onset Date Last Indicated Resolved Time CoV-Risk Comment:Per Ambulatory Triage Form 09/26/2021 09/26/202110/06 1:23 AM EST CoV-Risk 01/23/2022 01/23/2022 02/03/2022 1:24 AM EDT documented as of this encounter Care Teams Floor Runner Relationship Specialty Start Date End Date Jeanmarie Drake DO [email or web address] PCP - General 08/22/17 09/30/24 Jeanmarie Drake DO [address] [place] [address] [email or web address] PCP - General Internal Medicine 10/01/24 Jeanmarie Drake DO [address] [place] [address] [email or web address] Insurance Assigned Provider 06/24/21 01/05/23 Quyen Farnsworth CGC [address] [place] [address] [email or web address] Genetic Counselor Genetics 08/18/24 Carl Ferguson MBBS [address] [place] [address] [email or web address] Primary Oncologist Medical Oncology 10/08/24 documented as of this encounter Additional Source Comments The information contained in this document represents components of the legal health record. It is not the complete legal health record.[facility]
--- OUTSIDE RECORDS SUMMARY | 2025-04-13 08:48 | XMS_ITS | Encounter Summary ---
Author Organization [facility] Address [address] [place] [address] Phone Care Team Providers Care Import/Export Agent Name Role Phone Zandramo Jeanmarie Stacy Primary Care Provider [phone] Bigda, Jeanmarie Kumar DO Unavailable Quyen Farnsworth [facility] Unavailable [phone] Bigda, Jeanmarie A DO Primary Care Provider [phone] Carl Ferguson MBBS Unavailable [phone] Encounter Details Date Type Department Care Team (Late Contact Info) Description 12/01/2018 Transcribe Orders Virtual Department [address] [place] [address] Oralia Whiteside, SHOE LACER [address] [place] [address] Social History Tobacco Use Types Packs/Day Years [...] 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 Not on file documented as of this encounter Plan of Treatment Upcoming Encounters Date Type Department Care Team (Late st Contact Info) Description 11/13/2024 Procedure Pass [address] [address] 11/13/2024 Procedure Pass [address] [address] 05/10/2025 10:00 AM EDT Appointment [address] [address] Carl Ferguson MBBS [address] [place] [address] [email or web address] 05/12/2025 10:35 AM EDT Appointment [address] [address] Carl Ferguson MBBS [address] [place] [address] [email or web address] 05/17/2025 12:45 PM EDT Appointment [address] [address] Carl Ferguson [address] [address] [email or web address] documented as of this encounter Visit Diagnoses Not on filedocumented in this encounter Additional Health Concerns Infection Onset Date Last Indicated Resolved Time CoV-Risk Comment:Per Ambulatory Triage Form 09/26/2021 09/26/202110/06 1:23 AM EST CoV-Risk 01/23/2022 01/23/2022 02/03/2022 1:24 AM EDT documented as of this encounter Care Teams Import/Export Agent Relationship Specialty Start Date End Date Jeanmarie Drake DO [email or web address] PCP - General 08/22/17 09/30/24 Jeanmarie Drake DO [address] [place] [address] [email or web address] PCP - General Internal Medicine 10/01/24 Jeanmarie Drake DO [address] [place] [address] [email or web address] Insurance Assigned Provider 06/24/21 01/05/23 Quyen Farnsworth CGC [address] [place] [address] [email or web address]. [email or web address] Genetic Counselor Genetics 08/18/24 Carl Ferguson MBBS [address] [place] [address] [email or web address]. [email or web address] Primary Oncologist Medical Oncology 10/08/24 documented as of this encounter Additional Source Comments The information contained in this document represents components of the legal health record. It is not the complete legal health record.[facility]
--- OUTSIDE RECORDS SUMMARY | 2025-04-13 08:48 | XMS_ITS | Encounter Summary ---
Author Organization [facility] Address [address] [place] [address] [place] [address] Phone Care Team Providers Care Basket Weaver Name Role Phone Jeanmarie Drake DO Primary Care Provider [phone] Jeanmarie Drake DO Unavailable Quyen Farnsworth [facility] Unavailable [phone] Bigda, Jeanmarie Kumar DO Primary Care Provider [phone] Carl Ferguson MBBS Unavailable [phone] Encounter Details Date Type Department Care Team (Late st Contact Info) Description 07/21/2019 Procedure Pass [facility] Endoscopy Admitting Dept Virtual Department [address] [place] [address] Social History Tobacco Use Types Packs/Day Years [...] 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 Not on file documented as of this encounter Plan of Treatment Upcoming Encounters Date Type Department Care Team (Late st Contact Info) Description 11/13/2024 Procedure Pass [facility], [address] [address] 11/13/2024 Procedure Pass [address] [address] 05/10/2025 10:00 AM EDT Appointment [address] [address] Carl Ferguson, [address] [address] [email or web address] 05/12/2025 10:35 AM EDT Appointment [address] [address] Carl Ferguson, [address] [address] [email or web address] 05/17/2025 12:45 PM EDT Appointment [address] [address] Carl Ferguson, [address] [address] [email or web address] documented as of this encounter Visit Diagnoses Not on filedocumented in this encounter Additional Health Concerns Infection Onset Date Last Indicated Resolved Time CoV-Risk Comment:Per Ambulatory Triage Form 09/26/2021 09/26/202110/06 1:23 AM EST CoV-Risk 01/23/2022 01/23/2022 02/03/2022 1:24 AM EDT documented as of this encounter Care Teams Basket Weaver Relationship Specialty Start Date End Date Jeanmarie Drake DO [email or web address] PCP - General 08/22/17 09/30/24 Jeanmarie Drake DO [address] [place] [address] [email or web address] PCP - General Internal Medicine 10/01/24 Jeanmarie Drake DO [address] [place] [address] [email or web address] Insurance Assigned Provider 06/24/21 01/05/23 Quyen Farnsworth [facility] [address] [place] [address] [email or web address] Genetic Counselor Genetics 08/18/24 Carl Ferguson MBBS [address] [place] [address] [email or web address] Primary Oncologist Medical Oncology 10/08/24 documented as of this encounter Additional Source Comments The information contained in this document represents components of the legal health record. It is not the complete legal health record.[facility]
--- OUTSIDE RECORDS SUMMARY | 2025-04-13 08:48 | XMS_ITS | Encounter Summary ---
Author Organization [facility] Address [address] [place] [address] Phone Care Team Providers Care Pasteurizer Name Role Phone Jeanmarie Drake DO Primary Care Provider [phone] Jeanmarie Drake DO Unavailable Javad Quyen Z [facility] Unavailable [phone] Jeanmarie Drake DO Primary Care Provider [phone] Carl Ferguson MBBS Unavailable [phone] Encounter Details Date Type Department Care Team (Late st Contact Info) Description 02/05/2020 Transcribe Orders Virtual Department [address] [place] [address] Jeanmarie Drake DO [address] [facility] [place] [address] Radiculopathy, lumbar region (Primary Dx) Social History Tobacco Use Types [...] 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 Not on file documented as of this encounter Plan of Treatment Upcoming Encounters Date Type Department Care Team (Late st Contact Info) Description 11/13/2024 Procedure Pass [address] [address] 11/13/2024 Procedure Pass [address] [address] 05/10/2025 10:00 AM EDT Appointment [address] [address] Carl Ferguson [address] [address] [email or web address] 05/12/2025 10:35 AM EDT Appointment [address] [address] Carl Ferguson MBBS [address] [place] [address] [email or web address] 05/17/2025 12:45 PM EDT Appointment [address] [address] Carl Ferguson MBBS [address] [place] [address] [email or web address] documented as of this encounter Visit Diagnoses Diagnosis Radiculopathy, lumbar region- Primary Thoracic or lumbosacral neuritis or radiculitis, unspecified documented in this encounter Additional Health Concerns Infection Onset Date Last Indicated Resolved Time CoV-Risk Comment:Per Ambulatory Triage Form 09/26/2021 09/26/202110/06 1:23 AM EST CoV-Risk 01/23/2022 01/23/2022 02/03/2022 1:24 AM EDT documented as of this encounter Care Teams Pasteurizer Relationship Specialty Start Date End Date Jeanmarie Drake DO [email or web address] PCP - General 08/22/17 09/30/24 Jeanmarie Drake DO [address] [place] [address] [email or web address] PCP - General Internal Medicine 10/01/24 ZandraJeanmarie hassanDO [address] [place] [address] [email or web address] Insurance Assigned Provider 06/24/21 01/05/23 Quyen Farnsworth [facility] [address] [place] [phone] [email or web address] Genetic Counselor Genetics 08/18/24 Carl Ferguson MBBS [address] [place] [address] [email or web address] Primary Oncologist Medical Oncology 10/08/24 documented as of this encounter Additional Source Comments The information contained in this document represents components of the legal health record. It is not the complete legal health record.[facility]
--- OUTSIDE RECORDS SUMMARY | 2025-04-13 08:48 | XMS_ITS | Encounter Summary ---
Author Organization [facility] Address [address] [place] [address] Phone Care Team Providers Care Refinery Operator Name Role Phone Vidal Jeanmarie Stacy Primary Care Provider [phone] ZandradaJeanmarie DO Unavailable Quyen Farnsworth [facility] Unavailable [phone] Bigda, Jeanmarie Kumar DO Primary Care Provider [phone] Carl Ferguson MBBS Unavailable [phone] Encounter Details Date Type Department Care Team (Late st Contact Info) Description 11/05/2022 Ancillary Orders Non-Invasive Cardiology [address] [place] [address] Leonardo Davis MD [address] [place] [address] [id number] [email or web address] Dyspnea on exertion Social History Tobacco Use Types Packs/Day Years [...] 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 Not on file documented as of this encounter Plan of Treatment Upcoming Encounters Date Type Department Care Team (Late st Contact Info) Description 11/13/2024 Procedure Pass [address] [address] 11/13/2024 Procedure Pass [address] [address] 05/10/2025 10:00 AM EDT Appointment [address] [address] Carl Ferguson [address] [address] [email or web address] 05/12/2025 10:35 AM EDT Appointment [address] [address] Carl Ferguson MBBS [address] [place] [address] [email or web address] 05/17/2025 12:45 PM EDT Appointment [address] [address] Carl Ferguson [address] [address] [email or web address] documented as of this encounter Visit Diagnoses Diagnosis Dyspnea on exertion Other dyspnea and respiratory abnormality documented in this encounter Care Teams Refinery Operator Relationship Specialty Start Date End Date Jeanmarie Drake DO PCP - General 08/22/17 09/30/24 Jeanmarie Drake DO [address] [place] [address] [email or web address] PCP - General Internal Medicine 10/01/24 Jeanmarie Drake DO [address] [place] [address] [email or web address] Insurance Assigned Provider 06/24/21 01/05/23 Quyen Farnsworth CGC [address] [place] [phone] [email or web address] Genetic Counselor Genetics 08/18/24 Carl Ferguson MBBS [address] [place] [address] [email or web address] Primary Oncologist Medical Oncology 10/08/24 documented as of this encounter Additional Source Comments The information contained in this document represents components of the legal health record. It is not the complete legal health record.[facility]
--- OUTSIDE RECORDS SUMMARY | 2025-04-13 08:48 | XMS_ITS | Encounter Summary ---
Author Organization [facility] Address [address] [place] [address] [place] [address] Phone Care Team Providers Care Grinding Wheel Facer Name Role Phone ZandraJeanmarie hassan DO Primary Care Provider [phone] ZandradaJeanmarie Stacy DO Unavailable Javad Quyen Z [facility] Unavailable [phone] Bigda, Jeanmarie A DO Primary Care Provider [phone] Carl Ferguson MBBS Unavailable [phone] Encounter Details Date Type Department Care Team (Latest Contact Info) Description 07/13/2019 Transcribe Orders [facility] [address] [place] [address] Sepideh Sullivan PA-C [address], 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 Not on file Not on file documented as of this encounter Plan of Treatment Upcoming Encounters Date Type Department Care Team (Late st Contact Info) Description 11/13/2024 Procedure Pass [address] [address] 11/13/2024 Procedure Pass [address] [address] 05/10/2025 10:00 AM EDT Appointment [address] [address] Carl Ferguson [address] [address] [email or web address] 05/12/2025 10:35 AM EDT Appointment [address] [address] Carl Ferguson MBBS [address] [place] [address] [email or web address] 05/17/2025 12:45 PM EDT Appointment [address] [address] Carl Ferguson MBBS [address] [place] [address] [email or web address] documented as of this encounter Results * Fecal occult blood, multiple (07/20/2019 3:06 PM EST) FECAL OCC BLD 1 DATE 120,219 [facility] Occult bld, stool, #1 Negative Negative [facility] FECAL OCC BLD 2 DATE 120,119 [facility] OCCULT BLD, STOOL, #2 Negative Negative [facility] FECAL OCC BLD 3 DATE 113,019 [facility] FECAL OCC BLD 3 RSLT Negative Negative [facility] Stool (Stool) 07/20/2019 3:0 6 PM EST 07/20/2019 3:08 PM EST us Sepideh Sullivan PA-C BODY FLUIDS AND STOOLS ORDERABL ES Final Result [facility] [address] [place] [address] documented in this encounter Visit Diagnoses Diagnosis Coffee ground emesis- Primary Hematemesis documented in this encounter Additional Health Concerns Infection Onset Date Last Indicated Resolved Time CoV-Risk Comment:Per Ambulatory Triage Form 09/26/2021 09/26/202110/06 1:23 AM EST CoV-Risk 01/23/2022 01/23/2022 02/03/2022 1:24 AM EDT documented as of this encounter Care Teams Grinding Wheel Facer Relationship Specialty Start Date End Date Jeanmarie Drake DO PCP - General 08/22/17 09/30/24 Jeanmarie Drake DO [address] [place] [address] PCP - General Internal Medicine 10/01/24 Jeanmarie Drake DO [address] [place] [address] Insurance Assigned Provider 06/24/21 01/05/23 Quyen Farnsworth CGC [address] [place] [phone] [email or web address] Genetic Counselor Genetics 08/18/24 Carl Ferguson MBBS [address] [place] [address] [email or web address] Primary Oncologist Medical Oncology 10/08/24 documented as of this encounter Additional Source Comments The information contained in this document represents components of the legal health record. It is not the complete legal health record.[facility]
--- OUTSIDE RECORDS SUMMARY | 2025-04-13 08:48 | XMS_ITS | Encounter Summary ---
Author Organization [facility] Address [address] [facility] [address] [place] [address] Phone Care Team Providers Care Lay Out Maker Name Role Phone Quyen Farnsworth [facility] Unavailable [phone] Jeanmarie Drake DO Primary Care Provider [phone] Carl Ferguson MBBS Unavailable [phone] Encounter Details Date Type Department Care Team (Late st Contact Info) Description 10/01/2024 Transcribe Orders [facility] [address] [place] [address] Jeanmarie Drake DO [address] [facility] [address] [place], [place] [id number] [email or web address] Social History Tobacco Use Types Packs/Day Years [...] 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 Not on file documented as of this encounter Plan of Treatment Upcoming Encounters Date Type Department Care Team (Late st Contact Info) Description 11/13/2024 Procedure Pass [address] [address] 11/13/2024 Procedure Pass [address] [address] 05/10/2025 10:00 AM EDT Appointment [address] [address] Carl Ferguson MBBS [address] [place] [address] [email or web address] 05/12/2025 10:35 AM EDT Appointment [address] [address] Carl Ferguson MBBS [address] [place] [address] [email or web address] 05/17/2025 12:45 PM EDT Appointment [address] [address] Carl Ferguson MBBS [address] [place] [address] [email or web address] documented as of this encounter Visit Diagnoses Not on filedocumented in this encounter Care Teams Lay Out Maker Relationship Specialty Start Date End Date Jeanmarie Drake DO [address] [place] [address] [email or web address] PCP - General Internal Medicine 10/01/24 Quyen Farnsworth CGC [address] [place] [phone] [email or web address] Genetic Counselor Genetics 08/18/24 Carl Ferguson MBBS [address] [place] [address] [email or web address] Primary Oncologist Medical Oncology 10/08/24 documented as of this encounter Additional Source Comments The information contained in this document represents components of the legal health record. It is not the complete legal health record.[facility]
--- OUTSIDE RECORDS SUMMARY | 2025-04-13 08:48 | XMS_ITS | Encounter Summary ---
Author Organization [facility] Address [address] [place] [address] [place] [address] Phone Care Team Providers Care Newspaper Carriers Supervisor Name Role Phone Zandramo Jeanmarie Stacy Primary Care Provider [phone] BigdaJeanmarie DO Unavailable Quyen Farnsworth [facility] Unavailable [phone] Bigda, Jeanmarie A DO Primary Care Provider [phone] Carl Ferguson MBBS Unavailable [phone] Encounter Details Date Type Department Care Team (Latest Contact Info) Description 11/24/2018 Transcribe Orders Virtual Department [address] [place] [address] Oralia Whiteside, COAL FEEDER OPERATOR [address] [place] [address] [email or web address] Radiculopathy of cervical spine (Primary Dx) Social History Tobacco Use Types [...] 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 Not on file documented as of this encounter Plan of Treatment Upcoming Encounters Date Type Department Care Team (Late st Contact Info) Description 11/13/2024 Procedure Pass [address] [address] 11/13/2024 Procedure Pass [address] [address] 05/10/2025 10:00 AM EDT Appointment [address] [address] Carl Ferguson MBBS [address] [place] [address] [email or web address] 05/12/2025 10:35 AM EDT Appointment [address] [address] Carl Ferguson MBBS [address] [place] [address] [email or web address] 05/17/2025 12:45 PM EDT Appointment [address] [address] Carl Ferguson MBBS [address] [place] [address] [email or web address] documented as of this encounter Results * XR CERVICAL SPINE 4-5 VIEWS (11/26/2018 9:35 AM EDT) Anatomical Region Laterality Modality C-spine Radiographic Kassie ging 11/26/2018 9:39 AM EDT Impressions 11/26/2018 9:42 AM EDT No significant degenerative changes. POS - [id number] Narrative 11/26/2018 9:42 AM EDT EXAM: XR CERVICAL SPINE 4-5 VIEWS COMPARISON: None FINDINGS: Straightening of the normal cervical lordosis. No anterior or posterior subluxations. Bilateral neuroforamina are intact. Vertebral body heights and disc spaces are preserved. Odontoid process is mildly eccentrically closer to the left lateral mass of C1, which could be positional. Prevertebral soft tissues are unremarkable. Procedure Note Danyelle Miranda MD - 11/26/2018 EXAM: XR CERVICAL SPINE 4-5 VIEWS COMPARISON: None FINDINGS: Straightening of the normal cervical lordosis. No anterior or posteriorsubluxations. Bilateral neuroforamina are intact. Vertebral body heightsand disc spaces are preserved. Odontoid process is mildly eccentricallycloser to the left lateral mass of C1, which could be positional.Prevertebral soft tissues are unremarkable. IMPRESSION: No significant degenerative changes. POS - [id number] Oralia Whiteside COAL FEEDER OPERATOR IMG XR SPINE Final Resul t documented in this encounter Visit Diagnoses Diagnosis Radiculopathy of cervical spine- Primary Brachial neuritis or radiculitis nos Radiculopathy of cervical spine Brachial neuritis or radiculitis nos documented in this encounter Additional Health Concerns Infection Onset Date Last Indicated Resolved Time CoV-Risk Comment:Per Ambulatory Triage Form 09/26/2021 09/26/202110/06 1:23 AM EST CoV-Risk 01/23/2022 01/23/2022 02/03/2022 1:24 AM EDT documented as of this encounter Care Teams Newspaper Carriers Supervisor Relationship Specialty Start Date End Date Jeanmarie Drake DO PCP - General 08/22/17 09/30/24 Jeanmarie Drake DO [address] [place] [address] [email or web address] PCP - General Internal Medicine 10/01/24 Jeanmarie Drake DO [address] [place] [address] [email or web address] Insurance Assigned Provider 06/24/21 01/05/23 Quyen Farnsworth CGC [address] [place] [address] [email or web address] Genetic Counselor Genetics 08/18/24 Carl Ferguson MBBS [address] [place] [address] [email or web address] Primary Oncologist Medical Oncology 10/08/24 documented as of this encounter Additional Source Comments The information contained in this document represents components of the legal health record. It is not the complete legal health record.[facility]
--- OUTSIDE RECORDS SUMMARY | 2025-04-13 08:49 | XMS_ITS | Encounter Summary ---
Author Organization [facility] Address [address] [place] [address] [place] [address] Phone Care Team Providers Care Vendette Name Role Phone Jeanmarie Drake DO Primary Care Provider [phone] Jeanmarie Drake DO Unavailable Quyen Farnsworth [facility] Unavailable [phone] Bigda, Jeanmarie Kumar DO Primary Care Provider [phone] Carl Ferguson MBBS Unavailable [phone] Encounter Details Date Type Department Care Team (Late st Contact Info) Description 03/10/2021 Procedure Pass [facility], Ct Scan - [address] [address] Social History Tobacco Use Types Packs/Day Years [...] Industry Job Start Date Job 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 05/12/2025 10:35 AM EDT Appointment [address] [address] Carl Ferguson MBBS [address] [place] [address] [email or web address] 05/17/2025 12:45 PM EDT Appointment [address] [address] Carl Ferguson MBBS [address] [place] [address] [email or web address] documented as of this encounter Visit Diagnoses Not on filedocumented in this encounter Additional Health Concerns Infection Onset Date Last Indicated Resolved Time CoV-Risk Comment:Per Ambulatory Triage Form 09/26/2021 09/26/202110/06 1:23 AM EST CoV-Risk 01/23/2022 01/23/2022 02/03/2022 1:24 AM EDT documented as of this encounter Care Teams Vendette Relationship Specialty Start Date End Date Jeanmarie Drake DO [email or web address] PCP - General 08/22/17 09/30/24 Jeanmarie Drake DO [address] [place] [address] [email or web address] PCP - General Internal Medicine 10/01/24 Jeanmarie Drake DO [address] [place] [address] [email or web address] Insurance Assigned Provider 06/24/21 01/05/23 Quyen Farnsworth CGC [address] [place] [address] [email or web address] Genetic Counselor Genetics 08/18/24 Carl Ferguson MBBS [address] [place] [address] [email or web address] Primary Oncologist Medical Oncology 10/08/24 documented as of this encounter Additional Source Comments The information contained in this document represents components of the legal health record. It is not the complete legal health record.[facility]
--- OUTSIDE RECORDS SUMMARY | 2025-04-13 08:49 | XMS_ITS | Encounter Summary ---
Author Organization [facility] Address [address] [place] [address] Phone Care Team Providers Care Cytotechnologist Supervisor Name Role Phone Jeanmarie Drake DO Primary Care Provider [phone] Jeanmarie Drake DO Unavailable Javad Quyen [facility] Unavailable [phone] Jeanmarie Drake DO Primary Care Provider [phone] Carl Ferguson MB Unavailable [phone] Reason for Referral * Outpatient Procedure - Closed Specialty Diagnoses / Procedures Referred By Husam ruth Referred To Contact Diagnoses Chest pain, unspecified type Procedures Adult Echo TTE Jeanmarie Drake DO Phone: tel: fax: [email or web address]:[email or web address] Referral ID Status Reason Start Date Expiration Date Visits Re quested Visits Authorized [id number] Closed 10/26/2021 10/27/2022 1 1 * Outpatient Procedure - Closed Specialty Diagnoses / Procedures Referred By Husam ruth Referred To Contact Diagnoses Chest pain, unspecified type Procedures Stress Test Exercise Jeanmarie Drake DO Phone: tel: fax: [email or web address] Referral ID Status Reason Start Date Expiration Date Visits Re quested Visits Authorized [id number] Closed 10/27/2021 10/27/2022 2 2 Encounter Details Date Type Department Care Team (Late st Contact Info) Description 10/26/2021 Transcribe Orders Virtual Department [address] [place] [address] Jeanmarie Drake DO [address] [place] [address] [email or web address] Chest pain, unspecified type Social History Tobacco Use Types Packs/Day Years [...] 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 Not on file documented as of this encounter Plan of Treatment Upcoming Encounters Date Type Department Care Team (Late st Contact Info) Description 11/13/2024 Procedure Pass [address] [address] 11/13/2024 Procedure Pass [address] [address] 05/10/2025 10:00 AM EDT Appointment [address] [address] Carl Ferguson MBBS [address] [place] [address] [email or web address] 05/12/2025 10:35 AM EDT Appointment [address] [address] Carl Ferguson MBBS [address] [place] [address] [email or web address] 05/17/2025 12:45 PM EDT Appointment [facility], [facility] [address] [place] [address] Carl Ferguson, NAYELI [address] [place] [address] [email or web address] documented as of this encounter Results * TTE COMPREHENSIVE (01/17/2022 11:20 AM EDT) Body Surface Area 1.94 m2 Height 167 cm Weight 85 kg Systolic BP 128 mmHg Diastolic BP 92 mmHg Left Atrium Dimension Anterior-Posterior 29 15 - 40 mm Aortic Valve Mean Gradient 2 mmHg Aortic Valve Time Velocity Integral 198 mm Aortic Valve Peak Velocity 113.0 cm/s Aortic Valve Peak Gradient 5 mmHg Aortic Sinus Diameter 33 mm Ascending Aorta Diameter 35 mm Inferior Vena Cava Diameter 18 0.0 - 21 mm Interventricular Septum Thickness 11 mm Left Ventricle Internal Diameter End Diastole 41 37 - 52 mm Left Ventricle Internal Diameter End Systole 27 22 - 35 mm Left Ventricular Outflow Tract Diameter 19.0 mm LVOT VTI REST 169 mm Left Ventricular Outflow Tract Velocity 1.0 m/s Left Ventricular Outflow Tract Gradient at Rest 4 mmHg Left Ventricular Posterior Wall Thickness 11 mm Ejection Fraction 63 50 - 75 Percent Mitral Valve A Wave Speed 107.0 cm/s Mitral Valve E Wave Speed 95.7 cm/s Right Ventricle Basal Diameter 32.3 25 - 41 mm Tricuspid Valve Peak Velocity 2.3 m/s Raw LV EF% 57 % Left Atrial Volume 60 mL Left Atrial Volume Index 30.93 mL/m2 Right Ventricle Peak Systolic Pressure 24 mmHg Right Ventricle TAPSE 18 mm Right Atrium Pressure Estimated 3 mmHg Right Ventricle to Right Atrium Pressure Gradient 21 mmHg Right Ventricle Pulse Doppler S Wave 14.0 cm/s Aortic Valve Sinus Index 1 17 19 - 27 mm Ascending Aorta Diameter 18 mm Aortic Sinus Index 17 mm Ascending Aorta Index 18 mm Anatomical Region Laterality Modality Heart Ultrasound Narrative 01/17/2022 12:02 PM EDT This patient was imaged during normal sinus rhythm. The estimated ejection fraction is 60 to 65% there are no regional wall motion abnormalities. There is no evidence of aortic stenosis there is trace mitral regurgitation the PA pressure is normal on the study there is no pericardial effusion and there is no change when compared to a prior echo in 2017. Left Ventricle Left ventricular cavity size is normal and the left ventricular wall thickness is increased. There is concentric left ventricular hypertrophy. Left ventricular systolic function is normal. There are no segmental left ventricular wall motion abnormalities noted. The estimated ejection fraction is 63% (Normal 50-75%). Left ventricular diastolic function appears within normal limits for age. There is no evidence of left ventricular thrombus. Right Ventricle The right ventricular size is normal. The right ventricular systolic function is normal. Left Atrium The left atrium is normal in size. The LA volume is 60 mL. The LA volume index is 30.93 mL/m2 (normal indexed value is 16-34 mL/m2). The pulmonary venous flow profiles are normal. Right Atrium The right atrium is normal in size. The IVC measures 18 mm (normal <=21 mm). The IVC demonstrates normal collapse with inspiration which is consistent with normal RA pressure. Mitral Valve E/A ratio is 0.9. E/E' avg is 10.7. Lat E' velocity is 9.14cm/s. Med E' velocity is 8.70cm/s. There is no evidence of mitral stenosis. There is no evidence of mitral valve prolapse. There is trace mitral regurgitation detected by spectral and color Doppler. Tricuspid Valve There is no evidence of tricuspid stenosis. There is evidence of trace tricuspid regurgitation by color and spectral Doppler. Normal pulmonary pressure. The RV systolic pressure was estimated from the peak TV regurgitant velocity. The estimated RV systolic pressure is 24 mmHg assuming a right atrial pressure of 3 mmHg. The calculated peak RV-RA pressure gradient is 21 mmHg. Aortic Valve The aortic valve is tricuspid. There is no evidence of valvular aortic stenosis. The peak aortic valve gradient is 5 mmHg. The mean aortic gradient is 2 mmHg. There is no evidence of aortic regurgitation by color and spectral Doppler. The visualized portions of the thoracic aorta appear normal. Pulmonic Valve There is no evidence of pulmonic stenosis. There is no evidence of pulmonary regurgitation by color and spectral Doppler. Pericardium There is no evidence of pericardial effusion. Interatrial Septum The interatrial septum appears normal. General Findings Technically adequate echocardiogram. Technique(s) used in the evaluation: Color flow Doppler and Spectral Doppler. The predominant rhythm during the study was sinus. Comparison Findings Compared to a prior TTE from 02/21/2017 us Jeanmarie Drake DO CV ECHO ORDERABLES Final Result * Stress Test Exercise (11/09/2021 10:34 AM EDT) Max BP Systolic 188 mmHg [facility] Max BP Diastolic 118 mmHg [facility] Max HR 111 BPM [facility] Resting HR 76 BPM [facility] Resting BP Systolic 160 mmHg [facility] Resting BP Diastolic 108 mmHg [facility] Peak METS 4.6 METS [facility] Peak HR 110 BPM [facility] Peak BP Systolic 164 mmHg [facility] Peak BP Diastolic 102 mmHg [facility] Anatomical Region Laterality Modality Heart Other 11/09/2021 9:51 AM EDT 11/09/2021 10:34 AM EDT Narrative 11/10/2021 7:40 AM EDT Response to Stress The patient exercised for minutes seconds, achieving 4.6 METS at peak exercise. Baseline blood pressure was 160/108 mmHg, and baseline heart rate was 76 bpm. Peak blood pressure was 164/102 mmHg. The patient achieved a peak heart rate of 110 bpm, which is% of their maximum predicted heart rate. Rate pressure product was [address]. REPORT- Pt exercised for 2:03 min on a YESENIA protocol achieving 4.6 METS. Test terminated due to hypertension. Baseline resting HR was 64 bpm. Max heart rate achieved was 111 bpm (64% MPHR). 1. EKG - Baseline EKG showed sinus rhythm with non-specific ST/T-wave abnormalities. During exercise, EKGs were non-diagnostic for ischemia due to early test termination. 2. SYMPTOMS - No chest pain. Patient reported a headache throughout testing. 3. EXERCISE PHYSIOLOGY - BP 164/100 at rest, 188/118 during exercise, and 160/100 upon discharge from stress lab. 4. ARRHYTHMIAS - Rare, isolated PVCs. Conclusion - Stress test non-diagnostic for ischemia due to early test termination secondary to hypertension. Patient did not take her routine daily antihypertensive medication (Losartan) prior to test today. Will reschedule testing, patient was instructed to take Losartan prior to test. Kayla Khalil NP-C with Dr Farias. us Jeanmarie A Vidal DO CV STRESS ORDERABLES Final Resul t * XR CHEST PA AND LATERAL 2 VIEWS (11/09/2021 9:27 AM EDT) Anatomical Region Laterality Modality Chest Computed Radiogr aphy 11/09/2021 12:2 0 PM EDT Impressions 11/09/2021 12:21 PM EDT Mild cardiomegaly. Narrative 11/09/2021 12:21 PM EDT XR CHEST PA AND LATERAL 2 VIEWS COMPARISON: 03/10/2021 FINDINGS: Devices/Tubes/Lines: None. Lungs: Normal. The lungs are clear. No focal consolidation or pulmonary edema. Pleura: Normal. No pleural effusion or pneumothorax. Heart/Mediastinum: Heart is mildly enlarged Bones/Soft Tissues: No acute skeletal abnormality. Procedure Note Ita Delgadillo MD - 11/09/2021 XR CHEST PA AND LATERAL 2 VIEWS COMPARISON: 03/10/2021 FINDINGS: Devices/Tubes/Lines: None. Lungs: Normal. The lungs are clear. No focal consolidation or pulmonaryedema. Pleura: Normal. No pleural effusion or pneumothorax. Heart/Mediastinum: Heart is mildly enlarged Bones/Soft Tissues: No acute skeletal abnormality. IMPRESSION: Mild cardiomegaly. us Jeanmarie A Vidal PTETIT IMG XR CHEST Final Result documented in this encounter Visit Diagnoses Diagnosis Chest pain, unspecified type Chest pain, unspecified type Chest pain, unspecified type Chest pain, unspecified type documented in this encounter Additional Health Concerns Infection Onset Date Last Indicated Resolved Time CoV-Risk 01/23/2022 01/23/2022 02/03/2022 1:24 AM EDT documented as of this encounter Care Teams Cytotechnologist Supervisor Relationship Specialty Start Date End Date Jeanmarie Drake DO [email or web address] PCP - General 08/22/17 09/30/24 Jeanmarie Drake DO [address] [place] [address] [email or web address] PCP - General Internal Medicine 10/01/24 Jeanmarie Drake DO [address] [place] [address] [email or web address] Insurance Assigned Provider 06/24/21 01/05/23 Quyen Farnsworth [facility] [address] [place] [address] [email or web address] Genetic Counselor Genetics 08/18/24 Carl Ferguson MBBS [address] [place] [address] [email or web address] Primary Oncologist Medical Oncology 10/08/24 documented as of this encounter Additional Source Comments The information contained in this document represents components of the legal health record. It is not the complete legal health record.[facility]
--- OUTSIDE RECORDS SUMMARY | 2025-04-13 08:49 | XMS_ITS | Encounter Summary ---
Author Organization [facility] Address [address] [place] [address] Phone Care Team Providers Care Manager Ct Name Role Phone Quyen Farnsworth [facility] Unavailable [phone] Jeanmarie Drake DO Primary Care Provider [phone] Carl Ferguson MBBS Unavailable [phone] Encounter Details Date Type Department Care Team ([facility] Contact Info) Description 11/16/2024 Transcribe Orders [facility] Oncology Virtual Department [address] [place] [address] Jeanmarie Drake DO [address] 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 on file documented as of this encounter Plan of Treatment Upcoming Encounters Date Type Department Care Team (Late st Contact Info) Description 11/13/2024 Procedure Pass [address] [address] 11/13/2024 Procedure Pass [address] [address] 05/10/2025 10:00 AM EDT Appointment [address] [address] Carl Ferguson MBBS [address] [place] [address] [email or web address] 05/12/2025 10:35 AM EDT Appointment [address] [address] Carl Ferguson MBBS [address] [place] [address] [email or web address] 05/17/2025 12:45 PM EDT Appointment [address] [address] Carl Ferguson MBBS [address] [place] [address] [email or web address] documented as of this encounter Visit Diagnoses Not on filedocumented in this encounter Care Teams Manager Ct Relationship Specialty Start Date End Date Jeanmarie Drake DO [address] [place] [address] [email or web address] PCP - General Internal Medicine 10/01/24 Quyen Farnsworth [facility] [address] [place] [address] [email or web address] Genetic Counselor Genetics 08/18/24 Carl Ferguson MBBS [address] [place] [address] [email or web address] Primary Oncologist Medical Oncology 10/08/24 documented as of this encounter Additional Source Comments The information contained in this document represents components of the legal health record. It is not the complete legal health record.[facility]
--- OUTSIDE RECORDS SUMMARY | 2025-04-13 08:49 | XMS_ITS | Encounter Summary ---
Author Organization [facility] Address [address] [place] [address] Phone Care Team Providers Care Stock Speculator Name Role Phone ZandraJeanmarie hassan DO Primary Care Provider [phone] Quyen Farnsworth [facility] Unavailable [phone] Jeanmarie Drake DO Primary Care Provider [phone] Carl Ferguson MBBS Unavailable [phone] Encounter Details Date Type Department Care Team (Latest Contact Info) Description 03/01/2023 Transcribe Orders Virtual Department [address] [place] [address] Phylicia Mcknight PA [address] [place] [address] [place] [address] Cervicalgia (Primary Dx) Social History Tobacco Use Types [...] with a working camera? 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 05/12/2025 10:35 AM EDT Appointment [address] [address] Carl Ferguson MBBS [address] [place] [address] [email or web address] 05/17/2025 12:45 PM EDT Appointment [address] [address] Carl Ferguson MBBS [address] [place] [phone] [email or web address] documented as of this encounter Results * XR CERVICAL SPINE 4-5 VIEWS (03/04/2023 10:37 AM EDT) Anatomical Region Laterality Modality C-spine Computed Radiogr aphy 03/07/2023 1:02 AM EDT Impressions 03/07/2023 1:04 AM EDT Developing mild discogenic degenerative change in the upper cervical spine most pronounced at C3-4. Narrative 03/07/2023 1:04 AM EDT XR CERVICAL SPINE 4-5 VIEWS COMPARISON: XR CERVICAL SPINE 4-5 VIEWS FINDINGS: ALIGNMENT: Minimal straightening of the cervical lordosis. No spondylolisthesis. Open-mouth view demonstrates normal alignment of the C1-C2 lateral masses. VERTEBRAE: Vertebral body heights preserved. DISCS: Disc height loss up with sclerosis and marginal osteophytes at C3-4 and C4-5. FACETS: Facets normally aligned. Oblique neuroforaminal views demonstrate no significant osseous neuroforaminal stenosis. PARASPINAL SOFT TISSUES: Multiple surgical clips over the lower neck. Procedure Note Kerri Galloway MD - 03/07/2023 XR CERVICAL SPINE 4-5 VIEWS COMPARISON: XR CERVICAL SPINE 4-5 VIEWS FINDINGS: ALIGNMENT: Minimal straightening of the cervical lordosis. Nospondylolisthesis. Open-mouth view demonstrates normal alignment of theC1-C2 lateral masses. VERTEBRAE: Vertebral body heights preserved. DISCS: Disc height loss up with sclerosis and marginal osteophytes at C3-4and C4-5. FACETS: Facets normally aligned. Oblique neuroforaminal views demonstrateno significant osseous neuroforaminal stenosis. PARASPINAL SOFT TISSUES: Multiple surgical clips over the lower neck. IMPRESSION: Developing mild discogenic degenerative change in the upper cervical spinemost pronounced at C3-4. Phylicia LOPES IMG XR SPINE Final Resul t documented in this encounter Visit Diagnoses Diagnosis Cervicalgia- Primary Cervicalgia documented in this encounter Care Teams Stock Speculator Relationship Specialty Start Date End Date Jeanmarie Drake DO [email or web address] PCP - General 1/4/18 2/12/25 Jeanmarie Drake DO [address] [place] [address] [email or web address] PCP - General Internal Medicine 10/01/24 Quyen Farnsworth [facility] [address] [place] [phone] [email or web address] Genetic Counselor Genetics 08/18/24 Carl Ferguson MBBS [address] [place] [address] [email or web address] Primary Oncologist Medical Oncology 10/08/24 documented as of this encounter Additional Source Comments The information contained in this document represents components of the legal health record. It is not the complete legal health record.[facility]
--- OUTSIDE RECORDS SUMMARY | 2025-04-13 08:49 | XMS_ITS | Encounter Summary ---
Author Organization [facility] Address [address] [place] [address] [place] [address] Phone Care Team Providers Care Casino Duty Manager Name Role Phone Jeanmarie Drake Stacy Primary Care Provider [phone] Jeanmarie Drake DO Unavailable Quyen Farnsworth [place] Unavailable [phone] Bigda, Jeanmarie Kumar DO Primary Care Provider [phone] Carl Ferguson MBBS Unavailable [phone] Encounter Details Date Type Department Care Team (Late st Contact Info) Description 12/24/2022 Procedure Pass [facility], Ct Scan - [address] [address] Social History Tobacco Use Types Packs/Day Years Used Date Smoking Tobacco: Never Smokeless Tobacco: Never Alcohol Use Standard Drinks/Week Comments No 0 (1 standard drink = 0.6 oz pur e alcohol) Education Answer Date Recorded Are you interested in more education? Not on eric e 12/14/2022 Are you concerned about learning? 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 Wish to be (Past 1 Month) No 023 2:43 PM EDT Edie Soliz, CHAVA 2. Non-Specific Active Suici dora Thoughts (Past 1 Month) No 12/24/2022 2:43 PM EDT Edie Soliz RN 6. Suicidal Behavior (Lifetime) No 2:43 PM EDT Edie Soliz RN documented as of this encounter Plan of Treatment Upcoming Encounters Date Type Department Care Team (Late st Contact Info) Description 11/13/2024 Procedure Pass [address] [address] 11/13/2024 Procedure Pass [address] [address] 05/10/2025 10:00 AM EDT Appointment [address] [address] Carl Ferguson MBBS [address] [place] [phone] [email or web address] 05/12/2025 10:35 AM EDT Appointment [address] [address] Carl Ferguson MBBS [address] [place] [phone] [email or web address] 05/17/2025 12:45 PM EDT Appointment [address] [address] Carl Ferguson MBBS [address] [place] [phone] [email or web address] documented as of this encounter Visit Diagnoses Not on filedocumented in this encounter Care Teams Casino Duty Manager Relationship Specialty Start Date End Date Jeanmarie Drake DO [email or web address] PCP - General 08/22/17 09/30/24 Jeanmarie Drake DO [address] [place] [address] [email or web address] PCP - General Internal Medicine 10/01/24 Jeanmarie Drake DO [address] [place] [address] [email or web address] Insurance Assigned Provider 06/24/21 01/05/23 Quyen Farnsworth [facility] [address] [place] [phone] [email or web address] Genetic Counselor Genetics 08/18/24 Carl Ferguson MBBS [address] [place] [address] [email or web address] Primary Oncologist Medical Oncology 10/08/24 documented as of this encounter Additional Source Comments The information contained in this document represents components of the legal health record. It is not the complete legal health record.[facility]
--- OUTSIDE RECORDS SUMMARY | 2025-04-13 08:50 | XMS_ITS | Encounter Summary ---
Author Organization [facility] Address [address] [place] [address] [place] [address] Phone Care Team Providers Care Director Process Improvement Name Role Phone Zandramo Jeanmarie Stacy Primary Care Provider [phone] Jeanmarie Drake DO Unavailable Quyen Farnsworth [facility] Unavailable [phone] Bigda, Jeanmarie A DO Primary Care Provider [phone] Carl Ferguson MBBS Unavailable [phone] Encounter Details Date Type Department Care Team (Latest Contact Info) Description 04/14/2018 Ancillary Orders Virtual Department [address] [place] [address] Es Jones PA-C 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 Not on file Not on file documented as of this encounter Plan of Treatment Upcoming Encounters Date Type Department Care Team (Late st Contact Info) Description 11/13/2024 Procedure Pass [address] [address] 11/13/2024 Procedure Pass [address] [address] 05/10/2025 10:00 AM EDT Appointment [address] [address] Carl Ferguson MBBS [address] [place] [address] [email or web address] 05/12/2025 10:35 AM EDT Appointment [address] [address] Carl Ferguson MBBS [address] [place] [address] [email or web address] 05/17/2025 12:45 PM EDT Appointment [address] [address] Carl Ferguson MBBS [address] [place] [address] [email or web address] documented as of this encounter Results * XR LUMBOSACRAL SPINE 4 OR MORE VIEWS (04/15/2018 9:09 AM EDT) Anatomical Region Laterality Modality L-spine Radiographic Kassie ging 04/15/2018 9:38 AM EDT Impressions 04/15/2018 9:39 AM EDT Minimal progression of L5-S1 disc space narrowing without other significant interval change from 04/28/2016 apparent. POS [id number] Narrative 04/15/2018 9:39 AM EDT COMPARISON: 04/28/2016 FINDINGS: Frontal, lateral, and oblique views disclose no fracture, subluxation, or other acute bony abnormality. There appears to be minimally progressive disc space narrowing at the lumbosacral junction but the remaining lumbar disks are preserved in height and no spondylolysis or significant degenerative facet changes are apparent. Procedure Note Kierra Vieira MD - 04/15/2018 COMPARISON: 04/28/2016 FINDINGS: Frontal, lateral, and oblique views disclose no fracture, subluxation, orother acute bony abnormality. There appears to be minimally progressivedisc space narrowing at the lumbosacral junction but the remaining lumbardisks are preserved in height and no spondylolysis or significantdegenerative facet changes are apparent. IMPRESSION: Minimal progression of L5-S1 disc space narrowing without othersignificant interval change from 04/28/2016 apparent. POS [id number] November Robert HICKS IMG XR SPINE Final Result documented in this encounter Visit Diagnoses Diagnosis Low back pain, unspecified back pain laterality, unspecified chronicity, with sciatica presence unspecified Lumbar radiculopathy Thoracic or lumbosacral neuritis or radiculitis, unspecified Low back pain, unspecified back pain laterality, unspecified chronicity, with sciatica presence unspecified documented in this encounter Additional Health Concerns Infection Onset Date Last Indicated Resolved Time CoV-Risk Comment:Per Ambulatory Triage Form 09/26/2021 09/26/202110/06 1:23 AM EST CoV-Risk 01/23/2022 01/23/2022 02/03/2022 1:24 AM EDT documented as of this encounter Care Teams Director Process Improvement Relationship Specialty Start Date End Date Jeanmarie Drake DO [email or web address] PCP - General 08/22/17 09/30/24 Jeanmarie Drake DO [address] [place] [address] [place] [address] [email or web address] PCP - General Internal Medicine 10/01/24 Jeanmarie Drake DO [address] [place] [address] [email or web address] Insurance Assigned Provider 06/24/21 01/05/23 Quyen Farnsworth [facility] [address] [place] [address] [email or web address] Genetic Counselor Genetics 08/18/24 Carl Ferguson MBBS [address] [place] [address] [email or web address] Primary Oncologist Medical Oncology 10/08/24 documented as of this encounter Additional Source Comments The information contained in this document represents components of the legal health record. It is not the complete legal health record.[facility]
--- OUTSIDE RECORDS SUMMARY | 2025-04-13 08:50 | XMS_ITS | Encounter Summary ---
Author Organization [facility] Address [address] [place] [address] [place] [address] Phone Care Team Providers Care Dish Machine Operator Name Role Phone Jeanmraie Drake DO Primary Care Provider [phone] Jeanmarie Drake DO Unavailable Javad Quyen Z [facility] Unavailable [phone] Jeanmarie Drake DO Primary Care Provider [phone] Carl Ferguson MB Unavailable [phone] Encounter Details Date Type Department Care Team (Late st Contact Info) Description 01/17/2022 Ancillary Orders [facility], X-Ray - [facility] [address] [place] [address] Jeanmarie Drake DO [address] [facility] [place] [address] [place] [address] [email or web address] Cough Social History Tobacco Use Types Packs/Day Years [...] 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 Not on file documented as of this encounter Plan of Treatment Upcoming Encounters Date Type Department Care Team (Late st Contact Info) Description 11/13/2024 Procedure Pass [address] [address] 11/13/2024 Procedure Pass [address] [address] 05/10/2025 10:00 AM EDT Appointment [address] [address] Carl Ferguosn MBBS [address] [place] [address] [email or web address] 05/12/2025 10:35 AM EDT Appointment [address] [address] Carl Ferguson MBBS [address] [place] [address] [email or web address] 05/17/2025 12:45 PM EDT Appointment [address] [address] Carl Ferguson MBBS [address] [place] [address] [email or web address] documented as of this encounter Results * XR CHEST PA AND LATERAL 2 VIEWS (01/17/2022 11:35 AM EDT) Anatomical Region Laterality Modality Chest Computed Radiogr aphy 01/17/2022 12:2 9 PM EDT Impressions 01/17/2022 12:30 PM EDT No focal pulmonary consolidation Narrative 01/17/2022 12:30 PM EDT XR CHEST PA AND LATERAL 2 VIEWS COMPARISON: 11/09/2021 FINDINGS: Devices/Tubes/Lines: None. Lungs: Normal. The lungs are clear. No focal consolidation or pulmonary edema. Pleura: Normal. No pleural effusion or pneumothorax. Heart/Mediastinum: Heart is stable in size Bones/Soft Tissues: No significant skeletal abnormality. Procedure Note Ita Delgadillo MD - 01/17/2022 XR CHEST PA AND LATERAL 2 VIEWS COMPARISON: 11/09/2021 FINDINGS: Devices/Tubes/Lines: None. Lungs: Normal. The lungs are clear. No focal consolidation or pulmonaryedema. Pleura: Normal. No pleural effusion or pneumothorax. Heart/Mediastinum: Heart is stable in size Bones/Soft Tissues: No significant skeletal abnormality. IMPRESSION: No focal pulmonary consolidation us Jeanmarie Drake DO IMG XR CHEST Final Result documented in this encounter Visit Diagnoses Diagnosis Cough Cough documented in this encounter Additional Health Concerns Infection Onset Date Last Indicated Resolved Time CoV-Risk 01/23/2022 01/23/2022 02/03/2022 1:24 AM EDT documented as of this encounter Care Teams Dish Machine Operator Relationship Specialty Start Date End Date Jeanmarie Drake DO PCP - General 08/22/17 09/30/24 Jeanmarie Drake DO [address] [place] [address] PCP - General Internal Medicine 10/01/24 Jeanmarie Drake DO [address] [place] [address] Insurance Assigned Provider 06/24/21 01/05/23 Quyen Farnsworth, [facility] [address] [place] [address] [email or web address] Genetic Counselor Genetics 08/18/24 Carl Ferguson MBBS [address] [place] [address] [email or web address] Primary Oncologist Medical Oncology 10/08/24 documented as of this encounter Additional Source Comments The information contained in this document represents components of the legal health record. It is not the complete legal health record.[facility]
--- OUTSIDE RECORDS SUMMARY | 2025-04-13 08:50 | XMS_ITS | Encounter Summary ---
Author Organization [facility] Address [address] [facility] [address] [place] [address] Phone Care Team Providers Care Retort Setter Name Role Phone Jeanmarie Drake DO Primary Care Provider [phone] Qyuen Farnsworth [facility] Unavailable [phone] Jeanmarie Drake DO Primary Care Provider [phone] Carl Ferguson MBBS Unavailable [phone] Encounter Details Date Type Department Care Team ([facility] st Contact Info) Description 08/04/2024 Transcribe Orders Virtual Department [address] [place] [address] Jeanmarie Drake DO [address] [facility] [place] [address] [place] [address] [email or web address] Breast screening (Primary Dx) Social History Tobacco Use Types [...] 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 file Not on file documented as of this encounter Plan of Treatment Upcoming Encounters Date Type Department Care Team (Late st Contact Info) Description 11/13/2024 Procedure Pass [address] [address] 11/13/[address] [address] 05/10/2025 10:00 AM EDT Appointment [address] [address] Carl Ferguson MBBS [address] [place] [address] [email or web address] 05/12/2025 10:35 AM EDT Appointment [address] [address] Carl Ferguson MBBS [address] [place] [address] [email or web address] 05/17/2025 12:45 PM EDT Appointment [facility], Ultrasound - [facility] [address] [place] [address] Carl Ferguson MBBS [address] [place] [address] [email or web address] documented as of this encounter Visit Diagnoses Diagnosis Breast screening- Primary Breast screening, unspecified documented in this encounter Care Teams Retort Setter Relationship Specialty Start Date End Date Jeanmarie Drake DO [email or web address] PCP - General 08/22/17 09/30/24 Jeanmarie Drake DO [address] [place] [address] [email or web address] PCP - General Internal Medicine 10/01/24 Quyen Farnsworth [facility] [address] [place] [address] [email or web address] Genetic Counselor Genetics 08/18/24 Carl Ferguson MBBS [address] [place] [address] [email or web address] Primary Oncologist Medical Oncology 10/08/24 documented as of this encounter Additional Source Comments The information contained in this document represents components of the legal health record. It is not the complete legal health record.[facility]
--- OUTSIDE RECORDS SUMMARY | 2025-04-13 08:50 | XMS_ITS | Clinical Summary ---
Author Organization [facility] Address [address] [address] Care Team Providers Care Pyrometer Temperature Regulator Name Role Phone Jeanmarie Drake DO Primary Care Provider [phone] Social History Tobacco Use Types Packs/Day Years Used Date Smoking Tobacco: Never Assessed Comments Unknown Sex and Gender Information Value Date Recorded Sex Assigned at Not on file Legal Sex Female 8:58 AM EDT Gender Identity Not on file Sexual Orientation Not on file Plan of Treatment Health Maintenance Due Date Last Done Comments Breast Cancer Screening 1972 Hepatitis B Vaccine (1 of 3 - 19+ 3-dose series) 11/02/1991 Colorectal Cancer Screening: Annual FOBT 2021 Colorectal Cancer Screening: Colonoscopy 2021 Colorectal Cancer Screening: Sigmoidoscopy 2021 Pneumococcal Vaccine: 50+ Ye ars (1 of 1 - PCV) 2022 Influenza Vaccine (#1) 2025 05/09/2021, 2017 [place] Care Teams Pyrometer Temperature Regulator Relationship Specialty Start Date End Date Jeanmarie Drake DO [address] [place] [address] PCP - General Internal Medicine 05/29/22
--- OUTSIDE RECORDS SUMMARY | 2025-04-13 08:50 | XMS_ITS | Encounter Summary ---
Author Organization [facility] Address [address] [facility] [address] [place] [address] Phone Care Team Providers Care Automatic Winder Operator Name Role Phone Jeanmarie Drake DO Primary Care Provider [phone] Quyen Farnsworth [facility] Unavailable [phone] Jeanmarie Drake DO Primary Care Provider + Carl Ferguson MBBS Unavailable [phone] Encounter Details Date Type Department Care Team (Late st Contact Info) Description 07/05/2024 Procedure Pass [facility], Ct Scan - [address] [address] Social History Tobacco Use Types Packs/Day Years [...] 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 Wish to be (Past 1 Month) No 024 8:02 PM Allie Cuellar, CHAVA 2. Non-Specific Active Suici dora Thoughts (Past 1 Month) No 07/05/2024 8:02 PM SANDY Guo Ma ra, RN 6. Suicidal Behavior (Lifetime) No 8:02 PM Allie Cuellar, CHAVA documented as of this encounter Plan of Treatment Upcoming Encounters Date Type Department Care Team (Late st Contact Info) Description 11/13/2024 Procedure Pass [address] [address] 11/13/2024 Procedure Pass [address] [address] 05/10/2025 10:00 AM EDT Appointment [address] [address] Carl Ferguson MBBS [address] [place] [address] [email or web address] 05/12/2025 10:35 AM EDT Appointment [address] [address] Carl Ferguson MBBS [address] [place] [address] [email or web address] 05/17/2025 12:45 PM EDT Appointment [address] [address] Carl Ferguson MBBS [address] [place] [address] [email or web address] documented as of this encounter Visit Diagnoses Not on filedocumented in this encounter Care Teams Automatic Winder Operator Relationship Specialty Start Date End Date Jeanmarie Drake DO [email or web address] PCP - General 08/22/17 09/30/24 Jeanmarie Drake DO [address] [place] [address] PCP - General Internal Medicine 10/01/24 Quyen Farnsworth [facility] [address] [place] [address] [email or web address] Genetic Counselor Genetics 08/18/24 Carl Ferguson MBBS [address] [place] [address] [email or web address] Primary Oncologist Medical Oncology 10/08/24 documented as of this encounter Additional Source Comments The information contained in this document represents components of the legal health record. It is not the complete legal health record.[facility]
--- OUTSIDE RECORDS SUMMARY | 2025-04-13 08:50 | XMS_ITS | Encounter Summary ---
Author Organization [facility] Address [address] [place] [address] [place] [address] Phone Care Team Providers Care Dairy Husbandry Worker Name Role Phone Jeanmarie Drake Stacy Primary Care Provider [phone] Jeanmarie Drake DO Unavailable Quyen Farnsworth [facility] Unavailable [phone] Bigda, Jeanmarie Kumar DO Primary Care Provider [phone] Carl Ferguson MBBS Unavailable [phone] Encounter Details Date Type Department Care Team (Late st Contact Info) Description 10/26/2021 Procedure Pass [facility] Lab [address] [place] [address] Social History Tobacco Use Types Packs/Day Years [...] 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 file documented as of this encounter Plan of Treatment Upcoming Encounters Date Type Department Care Team (Late st Contact Info) Description 11/13/2024 Procedure Pass [facility] [address] [place] [address] 11/13/2024 Procedure Pass [address] [address] 05/10/2025 10:00 AM EDT Appointment [address] [address] Carl Ferguson, [address] [address] [email or web address] 05/12/2025 10:35 AM EDT Appointment [address] [address] Carl Ferguson, [address] [address] [email or web address] 05/17/2025 12:45 PM EDT Appointment [address] [address] Carl Ferguson, [address] [address] [email or web address] documented as of this encounter Visit Diagnoses Not on filedocumented in this encounter Additional Health Concerns Infection Onset Date Last Indicated Resolved Time CoV-Risk 01/23/2022 01/23/2022 02/03/2022 1:24 AM EDT documented as of this encounter Care Teams Dairy Husbandry Worker Relationship Specialty Start Date End Date Jeanmarie Drake DO PCP - General 08/22/17 09/30/24 Jeanmarie Drake DO [address] [place] [address] PCP - General Internal Medicine 10/01/24 Jeanmarie Drake DO [address] [place] [address] [email or web address] Insurance Assigned Provider 06/24/21 01/05/23 Quyen Farnsworth [facility] [address] [place] [address] [email or web address] Genetic Counselor Genetics 08/18/24 Carl Ferguson MBBS [address] [place] [address] [email or web address] Primary Oncologist Medical Oncology 10/08/24 documented as of this encounter Additional Source Comments The information contained in this document represents components of the legal health record. It is not the complete legal health record.[facility]
--- NOTE | 2025-04-13 09:02 | ED.HA ---
HPI - Headache General Chief Complaint: Headache Stated Complaint: Headache, neck pain Time Seen by Provider: 04/13/25 08:45 Source: patient Mode of arrival: ambulatory Limitations: no limitations History of Present Illness ED Provider: DR. Morales HPI Narrative: 54-year-old female history of CVA, HTN, GERD presented to the ED for evaluation of right side headache x3 days, pain started in the right side of the neck radiates now to the right jaw then to the right ear and right temporal area pain has been constant for the past 3-4 days, no fever, no chills, never had similar pain in the past, no trauma to the head or neck. No sick contacts, no recent travel, no family history of intracranial bleed or cerebral aneurysm. Related Data Home Medications ?Medication ?Instructions ?Recorded ?Confirmed famotidine 40 mg tablet 1 tab PO DAILY PRN Acid Reflux 05/22/22 08/28/23 losartan 50 mg tablet 1 tab PO DAILY 05/22/22 08/28/23 omeprazole 40 mg capsule,delayed 1 cap PO DAILY 05/22/22 08/28/23 release Previous Rx's ?Medication ?Instructions ?Recorded ondansetron 4 mg disintegrating 4 mg PO Q8H 3 days #9 tabs 08/18/22 tablet diazepam 5 mg tablet (Valium) 5 mg PO TID PRN muscle spasm #10 08/16/23 tabs lidocaine 5 % topical patch 1 patch topical DAILY #30 ea 08/16/23 methylprednisolone 4 mg tablets in See Rx Instructions PO PER PKG DIR 08/28/23 a dose pack (Medrol (Yousuf)) #21 ea cyclobenzaprine 10 mg tablet 10 mg PO TID #10 tabs 04/09/24 naproxen 500 mg tablet (Naprosyn) 500 mg PO BID #20 tabs 04/09/24 amoxicillin 875 mg-potassium 1 tab PO Q12H #14 tabs 04/13/25 clavulanate 125 mg tablet losartan 100 mg tablet 100 mg PO DAILY #14 tabs 04/13/25 Allergies Allergy/AdvReac Type Severity Reaction Status Date / Time latex Allergy Swelling Verified 04/13/25 08:24 celecoxib (From Celebrex) AdvReac Intermediate Swelling Verified 04/13/25 08:24 lisinopril AdvReac Intermediate Swelling Verified 04/13/25 08:24 metoprolol AdvReac Intermediate Swelling Verified 04/13/25 08:24 Review of Systems Review of Systems: All other systems are reviewed and are negative Constitutional: Reports as per HPI and Reports no additional constitutional complaints Eyes: Reports as per HPI and Reports no additional eye complaints Reports system reviewed and no additional complaints, except as documented Cardiovascular: Reports as per HPI and Reports no additional cardiovascular complaints Respiratory: Reports as per HPI and Reports no additional respiratory complaints Gastrointestinal: Reports as per HPI and Reports no additional gastrointestinal complaints Genitourinary: Reports no additional female genitourinary complaints Musculoskeletal: Reports no additional musculoskeletal complaints Skin/Breast: Reports system reviewed and no additional complaints, except as docu Psychiatric: Reports no additional psychiatric complaints Endocrine: Reports no additional endocrine complaints Hematologic/Lymphatic: Reports no additional hematologic/lymphatic complaints Allergic/Immunologic: Reports no additional allergic/immunologic complaints Reports system reviewed and no additional complaints, except as documented and Reports Abnormal speech present [facility] Past Medical History Medical History Bursitis of knee Poorly-controlled hypertension Surgical History History of section Social History Social History Smoked in Last 30 Days: No Use of substances other than those prescribed or required for medical reasons: No Advance Directives: No Advance Directives Information Provided: Yes Do you have a plan to hurt others: No Plan service: No Physical Exam Vital Signs: Vital Signs: Last Vital Signs Temp 98.4 F 04/13/25 12:57 Pulse 62 04/13/25 12:57 Resp 16 04/13/25 12:57 BP 157/89 H 04/13/25 12:57 Pulse Ox 98 04/13/25 12:57 O2 Del Method Room Air 04/13/25 08:29 BMI result Body Mass Index 31.2 Vital signs have been reviewed and appear to be correct. Blood pressure elevated. Heart rate normal. Respiratory rate normal. Temperature normal. Oxygen saturation normal. Appearance: Alert. Oriented X3. No acute distress. Head: Normal external exam. Normocephalic. Atraumatic. No López signs noted. No raccoon eyes noted Eyes: PERRLA. EOMI. Conjunctiva and sclera normal. Eyelids normal. ENT: Right frontal sinus tenderness on percussion, right TM erythema, right temporal tenderness on percussion, TM's Normal. Pharynx normal. Uvula midline. Moist mucous membranes. No trismus noted. No drooling noted. No muffled voice noted. Neck: Normal inspection. Neck supple. FROM. No adenopathy. Thyroid Normal. No meningeal signs. No neck mass noted. CVS: Normal heart rate and rhythm. Heart sound normal. No murmurs noted. Pulses normal throughout. Respiratory: No respiratory distress. Painless inspiration. Breath sounds normal. No wheezes/rales/rhonchi noted. Chest nontender. No accessory muscle usage noted or decreased air movement noted. Abdomen: Soft and nontender. Bowel sounds normal in all 4 quadrants. No distention noted. No organomegaly noted. No visible injury noted. Back: No CVA tenderness. Full range of motion noted. Skin: Skin warm and dry. Normal skin color. Normal skin turgor. No rashes/lesions/lacerations noted. Extremities: No lower extremity edema. Extremities exhibit normal range of motion. Extremities nontender. Neuro: Mental status: Normal attention, orientation, memory, and affect. Cranial nerves: Pupils are equal, round and reactive to light, EOMI, visual rehman are fall, face is symmetric, facial sensations are normal. Motor examination normal muscle tone, strength to 4 extremities. DTR are +2, planter's are flexor. Sensory exam; normal coordination, no ataxia, gait stable. Cerebellar exam: Paozyu-vu-ynws and arom-oc-dxep is normal. Extrapyramidal system: No tremors, no rigidity with normal facial expressions. Pronator drift not present Course Reevaluation(s) Reevaluation #1: CT head showed no acute intracranial bleed, CT angio also showed no aneurysm, normal sed rate, WBCs. Patient ran out of her blood pressure medication losartan 100 mg once daily will prescribe for 2 weeks. Will discharge on Augmentin for right otitis media and right frontal sinusitis. Time: 13:16 Medications Administered Discontinued Medications Generic Name Dose Route Start Last Admin Trade Name Freq PRN Reason Stop Dose Admin Amoxicillin/Clavulanate Potassium 875 mg 04/13/25 09:07 04/13/25 09:27 Amoxicillin/Potassium Clav 875 Mg Tablet PO 04/13/25 09:08 875 mg ONCE ONE Administration Sodium Chloride 1,000 mls @ 999 mls/hr 04/13/25 08:56 04/13/25 10:46 Ns IV 04/13/25 09:56 Infused .Q1H1M ONE Infusion Acetaminophen 1,000 mg in 100 mls @ 400 mls/hr 04/13/25 08:56 04/13/25 09:53 Ofirmev IV 04/13/25 09:10 Infused ONCE ONE Infusion Iohexol 100 ml 04/13/25 11:09 04/13/25 11:12 Iohexol 350 Mg/Ml 100 Ml Infus..Btl IV 04/13/25 11:10 70 ml ONCE ONE Administration Medical Decision Making Differential Diagnosis Differential Diagnoses: The differential diagnosis associated with the presentation includes (Temporal arteritis, TMJ arthritis, otitis media, right sinusitis, intracranial bleed, cerebral aneurysm.) Admission/Observation Consideration of admission/observation: Escalation of care including admission/observation considered Lab Data MDM Lab Attestation statement: I reviewed the patient's lab results. 04/13/25 09:21 04/13/25 09:21 Labs: Lab Results 04/13/25 Range/Units 09:21 WBC 6.6 (4.8-10.8) X10*3/uL RBC 4.84 (4.20-5.50) X10*6/uL Hgb 12.4 (12.0-16.0) g/dl Hct 39.2 (37.0-47.0) % MCV 81.0 (80.0-98.0) fL MCH 25.6 L (27.0-33.0) pg MCHC 31.6 (31.0-35.0) g/dl RDW 14.6 (11.0-16.0) % Plt Count 254 (160-400) X10*3/uL MPV 11.3 (9.4-12.3) fL Immature Gran % (Auto) 0.6 H (0.0-0.4) % Neut % (Auto) 52.4 (45-73) % Lymph % (Auto) 36.5 (20-40) % [place] % (Auto) 5.9 (2-11) % Eos % (Auto) 4.1 H (0-4) % Baso % (Auto) 0.5 (0-2) % Lymph # (Auto) 2.4 (1.2-4.9) X10*3/uL [place] # (Auto) 0.4 (0.1-1.2) X10*3/uL Eos # (Auto) 0.3 (0.0-0.4) X10*3/uL Baso # (Auto) 0.0 (0.0-0.2) X10*3/uL Abs Immat Gran (auto) 0.04 H (0.00-0.03) X10*3/uL Absolute Neuts (auto) 3.5 (2.0-8.3) x10*3/uL Absolute Nucleated RBC 0.000 (0.0-0.012) X10*3/uL Nucleated RBC % (auto) 0.0 (0.0-0.2) /100WBC ESR 14 (0-20) MM/HR Sodium 141 (135-145) mmol/L Potassium 4.6 (3.3-5.1) mmol/L Chloride 109 H (96-108) mmol/L Carbon Dioxide 24 (22-29) mmol/L Anion Gap 13 (12-20) BUN 10 (9-16) mg/dL Creatinine 0.81 (0.5-1.4) mg/dL Estim Creat Clear Calc 96.8 Estimated GFR > 60 Random Glucose 91 (60-115) mg/dL Calcium 10.7 H (8.4-10.2) mg/dL Independent Interpretation I performed an independent interpretation of an: CT Scan (CT/CTA head/neck:NONCONTRAST HEAD CT: No intracranial hemorrhage or mass effect. No CT evidence of acute territorial infarct. Stable bilateral maxillary sinus mucous retention cyst with near complete opacification of the right and minimal opacification of the left maxillary sinuses. CTA NECK:) Radiology Impression Discussion of test interpretation with radiology: I have reviewed the radiologist's reading. Discharge Plan Discharge Clinical Impression: Sinusitis, acute frontal, Acute right otitis media Patient Disposition: Home, Self-Care Instructions: Sinusitis (ED) Prescriptions: New losartan 100 mg tablet 100 mg PO DAILY Qty: 14 0RF amoxicillin-pot clavulanate 875-125 mg tablet 1 tab PO Q12H Qty: 14 0RF No Action losartan 50 mg tablet 1 tab PO DAILY famotidine 40 mg tablet 1 tab PO DAILY PRN (Reason: Acid Reflux) omeprazole 40 mg capsule,delayed release(DR/EC) 1 cap PO DAILY ondansetron 4 mg tablet,disintegrating 4 mg PO Q8H 3 Days Qty: 9 0RF lidocaine 5 % adhesive patch,medicated 1 patch topical DAILY Qty: 30 0RF Rx Instructions: leave on most painful area for up to 12 hrs diazepam [Valium] 5 mg tablet 5 mg PO TID PRN (Reason: muscle spasm) Qty: 10 0RF Rx Instructions: partial fill is okay cyclobenzaprine 10 mg tablet 10 mg PO TID Qty: 10 0RF naproxen [Naprosyn] 500 mg tablet 500 mg PO BID Qty: 20 0RF methylprednisolone [Medrol (Yousuf)] 4 mg tablets,dose pack See Rx Instructions PO PER PKG DIR Qty: 21 0RF Rx Instructions: PO PER PKG DIR Referrals: Jeanmarie Drake MD [Primary Care Provider, Internal Medicine] Print Language: [place] Citizen
[2025-04-13 09:31] LABS: MANUAL DIFF FLAG NO
[2025-04-13 09:38] LABS: Hematocrit 39.2 % (37.0-47.0); Hemoglobin 12.4 g/dl (12.0-16.0); Imm Gran Abs Auto 0.04 X10*3/uL (0.00-0.03); Imm Gran Pct Auto 0.6 % (0.0-0.4); Lymphocytes Absolute Auto 2.4 X10*3/uL (1.2-4.9); Mean Corpuscular HGB Conc 31.6 g/dl (31.0-35.0); Mean Corpuscular Hemoglobin 25.6 pg (27.0-33.0); Mean Corpuscular Volume 81.0 fL (80.0-98.0); NRBC Abs Auto 0.000 X10*3/uL (0.0-0.012); NRBC Pct Auto 0.0 /100WBC (0.0-0.2); Platelet Count 254 X10*3/uL (160-400); Red Blood Count 4.84 X10*6/uL (4.20-5.50); White Blood Count 6.6 X10*3/uL (4.8-10.8)
[2025-04-13 09:51] LABS: Anion Gap 13 (12-20); Blood Urea Nitrogen 10 mg/dL (9-16); Calcium 10.7 mg/dL (8.4-10.2); Carbon Dioxide 24 mmol/L (22-29); Chloride 109 mmol/L (96-108); Creatinine Clr Calc Pharmacy 96.8; Estimated Glomerular Filt Rate > 60; Potassium 4.6 mmol/L (3.3-5.1); Sodium 141 mmol/L (135-145)
[2025-04-13] MEDS: iohexoL 350 MG/ML 100 ML INFUS..BTL IV (11:12)
[2025-04-13 12:57] VITALS: BP 157/89; PULSE 62; RESP 16; TEMP 36.9; O2SAT 98
[2025-04-13 15:33] VITALS: BP 132/75; PULSE 75; RESP 16; TEMP 36.6; O2SAT 99
[2025-04-13 15:39] LABS: Appearance Urine Clear; Glucose Urine UA Negative (Negative); PH 8.0 (5.0-9.0); Specific Gravity - Urine <= 1.005 (1.005-1.025)
== END 2025-04-13 15:34 | disposition home or self-care (01) ==
PROVIDERS: Emergency Provider Emergency Medicine; PCP Internal Medicine
DX: H66.91 Otitis media, unspecified, right ear (principal); J01.10 Acute frontal sinusitis, unspecified
CPT/HCPCS: 36415; 70496; 70498; 80048; 81003; 85025; 85652; 86141; 96361; 96374; 99285; J0131; Q9967

== ENCOUNTER → 2025-04-13 08:56 | Outpatient (BNV) | payer OTHER, SELFPAY | PROVIDERS: Emergency Provider Emergency Medicine; PCP Internal Medicine; Visit Provider Radiology Diagnostic Radiology | DX: R42 Dizziness and giddiness (principal) | CPT/HCPCS: 70496; 70498 ==

== ENCOUNTER 2025-05-25 11:07 | Outpatient (REF) | payer OTHER, SELFPAY ==
--- OUTSIDE RECORDS SUMMARY | 2025-05-25 13:54 | XMS_ITS | Encounter Summary ---
Author Organization [facility] Address [address] [place] [address] [place] [phone] Phone Care Team Providers Care Advertising Assistant Manager Name Role Phone Jeanmarie Drake DO Primary Care Provider [phone] Jeanmarie Drake DO Unavailable Quyen Farnsworth [facility] Unavailable [phone] Bigda, Jeanmarie Kumar DO Primary Care Provider [phone] Carl Fergusno MBBS Unavailable [phone] Encounter Details Date Type Department Care Team (Late st Contact Info) Description 03/10/2021 Procedure Pass [facility], Ct Scan - [address] [address] Social History Tobacco Use Types Packs/Day Years [...] 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 Wish to be (Past 1 Month) No 021 11:47 AM EDT Kim You, RN 2. Non-Specific Active Suici dora Thoughts (Past 1 Month) No 03/10/2021 11:47 AM EDT John You, RN 6. Suicidal Behavior (Lifetime) No 11:47 AM EDT Kim You, RN documented as of this encounter Plan of Treatment Upcoming Encounters Date Type Department Care Team (Late st Contact Info) Description 11/13/2024 Procedure Pass [facility], [address] [address] 06/04/2025 6:45 PM EDT Appointment [address] [address] Carl Ferguson MBBS [address] [place] [phone] [email or web address] documented as of this encounter Visit Diagnoses Not on filedocumented in this encounter Additional Health Concerns Infection Onset Date Last Indicated Resolved Time CoV-Risk Comment:Per Ambulatory Triage Form 09/26/2021 09/26/202110/06 1:23 AM EST CoV-Risk 01/23/2022 01/23/2022 02/03/2022 1:24 AM EDT documented as of this encounter Care Teams Advertising Assistant Manager Relationship Specialty Start Date End Date Jeanmarie Drake DO PCP - General 08/22/17 09/30/24 Jeanmarie Drake DO [address] [place] [address] PCP - General Internal Medicine 10/01/24 Jeanmarie Drake DO [address] [place] [address] [email or web address] Insurance Assigned Provider 06/24/21 01/05/23 Quyen Farnsworth [facility] [address] [place] [id number] [email or web address] Genetic Counselor Genetics 08/18/24 Carl Ferguson MBBS [address] [place] [address] [email or web address] Primary Oncologist Medical Oncology 10/08/24 documented as of this encounter Additional Source Comments The information contained in this document represents components of the legal health record. It is not the complete legal health record.[facility]
--- OUTSIDE RECORDS SUMMARY | 2025-05-25 13:54 | XMS_ITS | Encounter Summary ---
Author Organization [facility] Address [address] [place] [address] [place] [phone] Phone Care Team Providers Care Dissolver Operator Name Role Phone Jeanmarie Drake DO Primary Care Provider [phone] Jeanmarie Drake DO Unavailable Quyen Farnsworth [facility] [place] [place] Unavailable [phone] Bigda, Jeanmarie Kumar DO Primary Care Provider [phone] Carl Ferguson MBBS Unavailable [phone] Encounter Details Date Type Department Care Team (Late st Contact Info) Description 07/21/2019 Procedure Pass [facility]oscopy Admitting Dept Virtual Department [address] [place] [address] Social History Tobacco Use Types Packs/Day Years [...] 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 Not on file documented as of this encounter Plan of Treatment Upcoming Encounters Date Type Department Care Team (Late st Contact Info) Description 11/13/2024 Procedure Pass [facility] [address] [place] [address] 06/04/2025 6:45 PM EDT Appointment [facility], [address] [address] Carl Ferguson MBBS [address] [place] [address] [email or web address] documented as of this encounter Visit Diagnoses Not on filedocumented in this encounter Additional Health Concerns Infection Onset Date Last Indicated Resolved Time CoV-Risk Comment:Per Ambulatory Triage Form 09/26/2021 09/26/202110/06 1:23 AM EST CoV-Risk 01/23/2022 01/23/2022 02/03/2022 1:24 AM EDT documented as of this encounter Care Teams Dissolver Operator Relationship Specialty Start Date End Date Jeanmarie Drake DO PCP - General 08/22/17 09/30/24 Jeanmarie Drake DO [address] [place] [address] PCP - General Internal Medicine 10/01/24 Jeanmarie Drake DO [address] [place] [address] Insurance Assigned Provider 06/24/21 01/05/23 Quyen Farnsworth CGC [address] [place] [id number] [email or web address] Genetic Counselor Genetics 08/18/24 Carl Ferguson MBBS [address] [place] [address] [email or web address] Primary Oncologist Medical Oncology 10/08/24 documented as of this encounter Additional Source Comments The information contained in this document represents components of the legal health record. It is not the complete legal health record.[facility]
--- OUTSIDE RECORDS SUMMARY | 2025-05-25 13:54 | XMS_ITS | Encounter Summary ---
Author Organization [facility] Address [address] [facility] [address] [place] [address] Phone Care Team Providers Care Er Nurse Name Role Phone Quyen Farnsworth Erin [facility] Unavailable [phone] Jeanmarie Drake DO Primary Care Provider [phone] Carl Ferguson MBBS Unavailable [phone] Encounter Details Date Type Department Care Team (Late st Contact Info) Description 11/13/2024 Procedure Pass [facility] [address] [place] [address] Social History Tobacco Use Types Packs/Day Years [...] 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 Not on file Not on file documented as of this encounter Plan of Treatment Upcoming Encounters Date Type Department Care Team (Late st Contact Info) Description 11/13/2024 Procedure Pass [address] [address] 06/04/2025 6:45 PM EDT Appointment [address] [address] Carl Ferguson MBBS [address] [place] [phone] [email or web address] documented as of this encounter Visit Diagnoses Not on filedocumented in this encounter Care Teams Er Nurse Relationship Specialty Start Date End Date Jeanmarie Drake DO [address] [place] [address] PCP - General Internal Medicine 10/01/24 Quyen Farnsworth CGC [address] [place] [phone] [email or web address] Genetic Counselor Genetics 08/18/24 Carl Ferguson MBBS [address] [place] [address] [email or web address] Primary Oncologist Medical Oncology 10/08/24 documented as of this encounter Additional Source Comments The information contained in this document represents components of the legal health record. It is not the complete legal health record.[facility]
--- OUTSIDE RECORDS SUMMARY | 2025-05-25 13:54 | XMS_ITS | Encounter Summary ---
Author Organization [facility] Address [address] [place] [address] [place] [address] Phone Care Team Providers Care Copy Clerk Name Role Phone ZandraJeanmarie hassan DO Primary Care Provider [phone] BigdaJeanmarie Stacy DO Unavailable Javad Quyen Z [facility] [place] Unavailable [phone] Bigda, Jeanmarie A DO Primary Care Provider [phone] Carl Ferguson MBBS Unavailable [phone] Encounter Details Date Type Department Care Team (Latest Contact Info) Description 07/13/2019 Transcribe Orders [facility] [address] [place] [address] Sepideh Sullivan PA-C [address], 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 Not on file Not on file documented as of this encounter Plan of Treatment Upcoming Encounters Date Type Department Care Team (Late st Contact Info) Description 11/13/2024 Procedure Pass [address] [address] 06/04/2025 6:45 PM EDT Appointment [address] [address] Carl Ferguson MBBS [address] [place] [phone] [email or web address] documented as of this encounter Results * Fecal occult blood, multiple (07/20/2019 3:06 PM EST) FECAL OCC BLD 1 DATE 120,219 [facility] Occult bld, stool, #1 Negative Negative [facility] FECAL OCC BLD 2 DATE 120,119 [facility] OCCULT BLD, STOOL, #2 Negative Negative [facility] FECAL OCC BLD 3 DATE 113,019 [facility] FECAL OCC BLD 3 RSLT Negative Negative [facility] Stool (Stool) 07/20/2019 3:0 6 PM EST 07/20/2019 3:08 PM EST us Sepideh Sullivan PA-C BODY FLUIDS AND STOOLS ORDERABL ES Final Result [address] [address] documented in this encounter Visit Diagnoses Diagnosis Coffee ground emesis- Primary Hematemesis documented in this encounter Additional Health Concerns Infection Onset Date Last Indicated Resolved Time CoV-Risk Comment:Per Ambulatory Triage Form 09/26/2021 09/26/202110/06 1:23 AM EST CoV-Risk 01/23/2022 01/23/2022 02/03/2022 1:24 AM EDT documented as of this encounter Care Teams Copy Clerk Relationship Specialty Start Date End Date Jeanmarie Drake DO [email or web address] PCP - General 08/22/17 09/30/24 Jeanmarie Drake DO [address] [place] [address] [email or web address] PCP - General Internal Medicine 10/01/24 Jeanmarie Drake DO [address] [place] [address] [email or web address] Insurance Assigned Provider 06/24/21 01/05/23 Quyen Farnsworth CGC [address] [place] [address] [email or web address] Genetic Counselor Genetics 08/18/24 Carl Ferguson MBBS [address] [place] [address] [email or web address] Primary Oncologist Medical Oncology 10/08/24 documented as of this encounter Additional Source Comments The information contained in this document represents components of the legal health record. It is not the complete legal health record.[facility]
--- OUTSIDE RECORDS SUMMARY | 2025-05-25 13:54 | XMS_ITS | Encounter Summary ---
Author Organization [facility] Address [address] [facility] [address] [place] [address] Phone Care Team Providers Care Agronomy Teacher Name Role Phone Quyen Farnsworth Erin [facility] [place] Unavailable [phone] Jeanmarie Drake DO Primary Care Provider [phone] Carl Ferguson MBBS Unavailable [phone] Encounter Details Date Type Department Care Team (Late st Contact Info) Description 10/01/2024 Procedure Pass [facility] [address] [place] [address] Social History Tobacco Use Types Packs/Day Years [...] 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 Not on file documented as of this encounter Plan of Treatment Upcoming Encounters Date Type Department Care Team (Late st Contact Info) Description 11/13/2024 Procedure Pass [address] [address] 06/04/2025 6:45 PM EDT Appointment [address] [address] Carl Ferguson MBBS [address] [place] [address] [email or web address] documented as of this encounter Visit Diagnoses Not on filedocumented in this encounter Care Teams Agronomy Teacher Relationship Specialty Start Date End Date Jeanmarie Drake DO [address] [place] [address] PCP - General Internal Medicine 10/01/24 Quyen Farnsworth CGC [address] [place] [phone] [email or web address] Genetic Counselor Genetics 08/18/24 Carl Ferguson MBBS [address] [place] [address] [email or web address] Primary Oncologist Medical Oncology 10/08/24 documented as of this encounter Additional Source Comments The information contained in this document represents components of the legal health record. It is not the complete legal health record.[facility]
--- OUTSIDE RECORDS SUMMARY | 2025-05-25 13:54 | XMS_ITS | Encounter Summary ---
Author Organization [facility] Address [address] [facility] [address] [place] [address] Phone Care Team Providers Care Team Coordinator Name Role Phone Quyen Farnsworth [facility] Unavailable [phone] Jeanmarie Drake DO Primary Care Provider [phone] Carl Ferguson MBBS Unavailable [phone] Encounter Details Date Type Department Care Team (Late st Contact Info) Description 10/01/2024 Transcribe Orders 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 Not on file documented as of this encounter Plan of Treatment Upcoming Encounters Date Type Department Care Team (Late st Contact Info) Description 11/13/2024 Procedure Pass [address] [address] 06/04/2025 6:45 PM EDT Appointment [address] [address] Carl Ferguson MBBS [address] [place] [phone] [email or web address] documented as of this encounter Visit Diagnoses Not on filedocumented in this encounter Care Teams Team Coordinator Relationship Specialty Start Date End Date Jeanmarie Drake DO [address] [place] [address] [email or web address] PCP - General Internal Medicine 10/01/24 Quyen Farnsworth CGC [address] [place] [phone] [email or web address] Genetic Counselor Genetics 08/18/24 Carl Ferguson MBBS [address] [place] [address] [email or web address] Primary Oncologist Medical Oncology 10/08/24 documented as of this encounter Additional Source Comments The information contained in this document represents components of the legal health record. It is not the complete legal health record.[facility]
--- OUTSIDE RECORDS SUMMARY | 2025-05-25 13:54 | XMS_ITS | Clinical Summary ---
Author Organization [facility] Address [address] [place] [address] Phone Care Team Providers Care Last Inserter Name Role Phone Quyen Farnsworth [facility] Unavailable [phone] Jeanmarie Drake DO Primary Care Provider [phone] Carl Ferguson MBBS Unavailable [phone] Allergies Active Allergy Reactions Criticality Noted Date [...] and ultrasounds She will undergo consultation with [facility] regarding consideration for bilateral oophorectomy I also [...] all discussed as she declines hysterectomy as latter day issue for her Micronor given, can try [...] Encounters Date Type Department Care Team Description 05/11/2025 Orders Only [facility] at [address] [address] Carl Ferguson, NAYELI Cyst of pancreas (Primary Dx) 05/10/2025 9:29 AM EDT - 05/10/2025 11:59 PM EDT Hospital Encounter [address] [address] Carl Ferguson MBBS Discharge Disposition: Home or Self Care 11/13/2024 Procedure Pass [address] [address] from Last 3 Months Immunizations Immunization Administration [...] 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 Not on file Not on file Last Filed Vital Signs Vital Sign Reading Time Taken Comments Blood Pressure 146/90 11/12/2024 12:08 PM EDT Pulse 84 11/12/2024 12:08 PM EDT Temperature 36.6 C (97.9 F) 11/12/2024 12:08 PM EDT Respiratory Rate 16 07/05/2024 10:48 PM EST Oxygen Saturation 100% 11/12/2024 12:08 PM EDT Inhaled Oxygen Concentration - - Weight 93 kg (205 lb) 05/06/2025 2:15 PM EDT Height 167.6 cm (5' 6 ) 05/06/2025 2:15 PM EDT Body Mass Index 33.09 05/06/2025 2:15 PM EDT Plan of Treatment Upcoming Encounters Date Type Department Care Team (Late st Contact Info) Description 11/13/2024 Procedure Pass [address] [address] 06/04/2025 6:45 PM EDT Appointment [address] [address] Carl Ferguson, MBMICHAEL [address] [place] [phone] [email or web address] Health Maintenance Due Date Last Done Comments Adult Td,Tdap Booster 1972 LIPID PANEL 1972 DEPRESSION SCREENING 1984 HEPATITIS C SCREENING 1990 HIV ONE-TIME SCREENING (18-65 YEARS) 1990 COLOGUARD 2017 COLONOSCOPY 2017 FIT TEST 2017 SIGMOIDOSCOPY 2017 VIRTUAL COLONOSCOPY 2017 COLORECTAL CANCER SCREENING 07/20/2020 FOBT 07/20/2020 07/20/2019 PNEUMOCOCCAL VACCINES (50+ years) (1 of 1 - PCV) 2022 ZOSTER VACCINES (1 of 2) 2022 INFLUENZA VACCINE (#1) 2025 3, 05/09/2021, 07/28/2018, Additional history exists COVID-19 VACCINE (2 - 2024- season) 2025 01/20/2021 BLOOD PRESSURE 05/15/2025 11/12/2024 MAMMOGRAM 10/29/2026 10/29/2024, 07/22/2023 PAP SMEAR 11/26/2026 11/27/2023, 03/20, 04/16/2018 SCREENING FOR DIABETES 07/05/2027 07/05/2024 RSV VACCINE (1 - 1-dose 75+ series) 11/02/2047 SMOKING STATUS SCREENING (Once After 26 Yrs) Completed 10/29/2024 HEPATITIS A [...] Procedure Name Priority Date/Time Associated Diagnosis Comments MRI CHOLANGIOPANCREATOGRAPHY (MRCP) WITH AND WITHOUT CONTRAST Routine 05/10/2025 12:14 PM EDT BRCA2 gene mutation positive BI MAMMOGRAM DIAGNOSTIC WITH TOMOSYNTHESIS WITH CAD (BILATERAL) Routine 10/29/2024 12:43 PM EDT Breast pain PAP TEST Routine 11/27/2023 12:00 AM EDT FECAL OCCULT BLOOD, MULTIPLE Routine 09/2018 3:06 PM EST Coffee ground emesis from Last 3 Months or Most Recently Relevant to Health Maintenance Results * MRI CHOLANGIOPANCREATOGRAPHY (MRCP) WITH AND WITHOUT CONTRAST (05/10/2025 12:14 PM EDT) MGB IMG RECOMMENDATION COMMENT degraded exam main pancreatic duct; motion; tiny 2 to 3 mm T2 hyperintense foci pancreas; Differential: 2 to 3 mm likely tiny sidebranch intraductal papillary mucinous neoplasms [facility] Anatomical Region Laterality Modality Pancreas, Biliary Magnetic Reson ance 05/11/2025 11:5 3 AM EDT Impressions 05/11/2025 12:25 PM EDT 1. Motion degraded exam demonstrates diffuse nonspecific mild dilatation of the main pancreatic duct at 5 mm without evidence of obstructing mass lesion. Within limits of motion, there are a few tiny 2 to 3 mm T2 hyperintense foci throughout the pancreas, likely tiny sidebranch intraductal papillary mucinous neoplasms. No solid appearing mass or pancreatic atrophy. Given history of BRCA2 mutation, follow-up pancreatic MRI in 6-12 months is advised to assess for change. 2. Unilocular fat-containing mass within the mid transverse colon measuring up to 3.5 cm, likely a lipoma. No associated bowel obstruction. 3. Other findings, as above, including diffuse adenomatous change of the left adrenal gland with 11 mm adenoma and tiny hepatic cysts. Follow-up recommendations were communicated and documented using a closed loop communication system. Narrative 05/11/2025 12:25 PM EDT MRI CHOLANGIOPANCREATOGRAPHY (MRCP) WITH AND WITHOUT CONTRAST Referring clinician's provided indication for this examination in [facility]: Outside Radiology Order; BRCA mutation - needs screening for pancreatic malignancy TECHNIQUE: Multiplanar MR imaging of the abdomen was performed using T1, T2, fat saturated, and diffusion weighted techniques. 2D and 3D MRCP sequences were performed. Dynamic multiphase imaging was also performed after administration of an intravenous gadolinium contrast agent. COMPARISON: CT ABDOMEN/PELVIS WITH CONTRAST ; CT CHEST WITH CONTRAST FINDINGS: The examination is degraded by motion. Lower Chest: No effusions. There are prominent pericardial recesses seen in the subcarinal and right infrahilar location as also seen on prior CT. Liver: There is no significant loss of signal on opposed phased imaging. There are multiple tiny 2 to 3 mm T2 hyperintense probable cysts throughout the liver. No suspicious liver lesions are seen. Biliary: No biliary ductal dilatation. The gallbladder is mildly distended without gross intraluminal filling defect. MRCP images are mildly degraded by motion. No filling defects are seen along the course of the CBD to suggest choledocholithiasis. Spleen: No splenomegaly or focal lesion. Pancreas: The main pancreatic duct is mildly dilated diffusely at 5 mm. There is no evidence for solid mass. Within limits of motion, there are a few tiny 2 to 3 mm T2 hyperintense foci throughout the pancreas for instance in the body on image 18 of series 3 and in the head on image 16 of series 3 and on image 36 of series 6. There is no pancreatic divisum. There is no pancreatic atrophy. There is no peripancreatic inflammatory change. Adrenal Glands: There is diffuse thickening of the left adrenal gland which loses signal on out of phase images and is likely due to adenomatous change. This includes a 11 mm left adrenal nodule on image 23 of series 4 which loses signal and is consistent with an adenoma. No right adrenal nodules are seen. Kidneys/Ureters: No solid masses or hydronephrosis. Bowel: No visualized bowel obstruction. Within the mid transverse colon just to the right of midline there is a unilocular T2 hyperintense mass measuring 3.5 x 3.2 cm in maximal axial dimension on image 34 series 4 and up to 3.57 m in SI dimension on image 8 of series 3 which loses signal on fat-saturated sequences and is likely a lipoma. There is no associated internal signal or enhancement. There is associated deformity of the transverse colon which may be submucosal or intraluminal. No associated bowel obstruction. Peritoneum/Retroperitoneum: No ascites or pneumoperitoneum. Lymph Nodes: Left retroperitoneal lymph nodes measure up to 6 mm in short axis. No enlarged abdominal lymph nodes. Vessels: No abdominal aortic aneurysm. Bones/Soft Tissues: No focal marrow replacing lesions. Procedure Note Eduardo Manning MD - 05/11/2025 MRI CHOLANGIOPANCREATOGRAPHY (MRCP) WITH AND WITHOUT CONTRAST Referring clinician's provided indication for this examination in Epic:Outside Radiology Order; BRCA mutation - needs screening for pancreaticmalignancy TECHNIQUE: Multiplanar MR imaging of the abdomen was performed using T1,T2, fat saturated, and diffusion weighted techniques. 2D and 3D MRCPsequences were performed. Dynamic multiphase imaging was also performedafter administration of an intravenous gadolinium contrast agent. COMPARISON: CT ABDOMEN/PELVIS WITH CONTRAST 2019-Sep-13; CT CHEST WITHCONTRAST FINDINGS: The examination is degraded by motion. Lower Chest: No effusions. There are prominent pericardial recesses seenin the subcarinal and right infrahilar location as also seen on priorCT. Liver: There is no significant loss of signal on opposed phased imaging.There are multiple tiny 2 to 3 mm T2 hyperintense probable cyststhroughout the liver. No suspicious liver lesions are seen. Biliary: No biliary ductal dilatation. The gallbladder is mildly distendedwithout gross intraluminal filling defect. MRCP images are mildly degradedby motion. No filling defects are seen along the course of the CBD tosuggest choledocholithiasis. Spleen: No splenomegaly or focal lesion. Pancreas: The main pancreatic duct is mildly dilated diffusely at 5 mm.There is no evidence for solid mass. Within limits of motion, there are afew tiny 2 to 3 mm T2 hyperintense foci throughout the pancreas forinstance in the body on image 18 of series 3 and in the head on image 16of series 3 and on image 36 of series 6. There is no pancreatic divisum.There is no pancreatic atrophy. There is no peripancreatic inflammatorychange. Adrenal Glands: There is diffuse thickening of the left adrenal glandwhich loses signal on out of phase images and is likely due to adenomatouschange. This includes a 11 mm left adrenal nodule on image 23 of series 4which loses signal and is consistent with an adenoma. No right adrenalnodules are seen. Kidneys/Ureters: No solid masses or hydronephrosis. Bowel: No visualized bowel obstruction. Within the mid transverse colonjust to the right of midline there is a unilocular T2 hyperintense massmeasuring 3.5 x 3.2 cm in maximal axial dimension on image 34 series 4 andup to 3.57 m in SI dimension on image 8 of series 3 which loses signal onfat-saturated sequences and is likely a lipoma. There is no associatedinternal signal or enhancement. There is associated deformity of thetransverse colon which may be submucosal or intraluminal. No associatedbowel obstruction. Peritoneum/Retroperitoneum: No ascites or pneumoperitoneum. Lymph Nodes: Left retroperitoneal lymph nodes measure up to 6 mm in shortaxis. No enlarged abdominal lymph nodes. Vessels: No abdominal aortic aneurysm. Bones/Soft Tissues: No focal marrow replacing lesions. IMPRESSION: 1. Motion degraded exam demonstrates diffuse nonspecific mild dilatationof the main pancreatic duct at 5 mm without evidence of obstructing masslesion. Within limits of motion, there are a few tiny 2 to 3 mm [id number] foci throughout the pancreas, likely tiny sidebranchintraductal papillary mucinous neoplasms. No solid appearing mass orpancreatic atrophy. Given history of BRCA2 mutation, follow-up pancreaticMRI in 6-12 months is advised to assess for change. 2. Unilocular fat-containing mass within the mid transverse colonmeasuring up to 3.5 cm, likely a lipoma. No associated bowelobstruction. 3. Other findings, as above, including diffuse adenomatous change of theleft adrenal gland with 11 mm adenoma and tiny hepatic cysts. Follow-up recommendations were communicated and documented using a closedloop communication system. us Carl TYLER IMG MR ABDOMEN Final Resu lt * BI MAMMOGRAM DIAGNOSTIC WITH TOMOSYNTHESIS WITH [...] are identified mammographically in the left breast. Rosy Carlson PERIANESTHESIA RN IMG MG EXAMS Final Result * Pap Test (11/27/2023 12:00 AM EDT) 11/27/2023 11/28/2023 9:3 8 AM EDT Narrative SEE NARRATIVE - 12/05/2023 11:03 [place] [address] Senior Finance Manager: Carly Colindres MD ANDROID ARCHITECT Cytology Report FINAL DIAGNOSIS A. PAP SMEAR [...] 59, 66, 68) Note: Testing performed by [employer] On[employer]arity HR-HPV analysis. Clinical correlation is advised. This HPV test was performed at [facility], [address] [place] [address]. This test has been FDA approved for both SurePath and ThinPrep cervical cytology specimens. The accuracy and precision of this test for all other specimen sources has been verified in the Cytopathology Laboratory of the [facility] and has not been cleared or approved by the U.S. Food and Drug Administration. Clinical correlation is advised. CLINICAL HISTORY Date of Last Menstrual Period: Not Provided Menstrual History: Post Menopausal Treatment History: LEEP: 2008 Other Clinical Conditions: Screening Pap SPECIMEN SOURCE A: PAP SMEAR (SUREPATH) CE Patient Name: DAYDAY ARIAS : 1970 (Age: 53) Sex: F Institution: [facility] Location: [facility] Date of Collection: 11/27/2023 Date of Reported: 12/05/2023 11:03 Results to: Lexi Kinney MD us Lexi Kinney MD CYTOLOGY ORDERABLES Final Result Performing Organization Address City/[facility]/ZIP Co de Phone Number SEE NARRATIVE * Fecal occult blood, multiple (07/20/2019 3:06 PM EST) FECAL OCC BLD 1 DATE 120,219 [facility] Occult bld, stool, #1 Negative Negative [facility] FECAL OCC BLD 2 DATE 120,119 [facility] OCCULT BLD, STOOL, #2 Negative Negative [facility] FECAL OCC BLD 3 DATE 113,019 [facility] FECAL OCC BLD 3 RSLT Negative Negative [facility] Stool (Stool) 07/20/2019 3:0 6 PM EST 07/20/2019 3:08 PM EST us Sepideh Sullivan PA-C BODY FLUIDS AND STOOLS ORDERABL ES Final Result Performing Organization Address [facility] Co de Phone Number [facility] [address] [place], [place] [phone] from Last 3 Months or Most Recently Relevant to Health Maintenance Insurance [employer] SAF[employer] NET PARTIAL [employer] PUBLIC PLANS [employer] NET PARTIAL [employer] NET PARTIAL Member Subscriber Plan / Payer (Ef fective 2025-) Name:Dayday Arias Relation to Subscriber:Self Name:DAYDAY ARIAS Payer ID:Not on file Group ID:Not on file Type:Medicaid Address: [address] [employer] NET PARTIAL Member Subscriber Plan / Payer (Ef fective 2025-) Name:Dayday Arias Relation to Subscriber:Self Name:JUANADAYDAY Payer ID:Not on file Group ID:Not on file Type:Medicaid Address: [address] [employer] NET PARTIAL Member Subscriber Plan / Payer (Ef fective 2025-) Name:Dayday Arias Relation to Subscriber:Self Name:DAYDAY ARIAS Payer ID:Not on file Group ID:Not on file Type:Medicaid Address: [address] [employer] NET PARTIAL Member Subscriber Plan / Payer (Ef fective 2025-) Name:Dayday Arias Relation to Subscriber:Self Name:DAYDAY ARIAS Payer ID:Not on file Group ID:Not on file Type:Medicaid Address: [address] [employer] NET PARTIAL HEALTH SAFETY NET PARTIAL Member Subscriber Plan / Payer (Ef fective 2025-) Name:Dayday Arias Relation to Subscriber:Self Name:DAYDAY ARIAS Payer ID:Not on file Group ID:Not on file Type:Medicaid Address: [place] [id number] [employer] SAF[employer] NET PARTIAL Care Teams Last Inserter Relationship Specialty Start Date End Date Jeanmarie Drake DO [address] [place] [phone] [email or web address] PCP - General Internal Medicine 10/01/24 Quyen Farnsworth CGC [address] [place] [phone] [email or web address] Genetic Counselor Genetics 08/18/24 Carl Ferguson MBBS [address] [place] [address] [email or web address] Primary Oncologist Medical Oncology 10/08/24 Additional Source Comments The information contained in this document represents components of the legal health record. It is not the complete legal health record.[facility]
--- OUTSIDE RECORDS SUMMARY | 2025-05-25 13:54 | XMS_ITS | Encounter Summary ---
Author Organization [facility] Address [address] [place] [address] [place] [address] Phone Care Team Providers Care Child Protective Services Specialist Name Role Phone Jeanmarie Drake DO Primary Care Provider [phone] Jeanmarie Drake DO Unavailable Quyen Farnsworth [facility] Unavailable [phone] Bigda, Jeanmarie Kumar DO Primary Care Provider [phone] Carl Ferguson MBBS Unavailable [phone] Encounter Details Date Type Department Care Team (Late st Contact Info) Description 03/10/2021 Procedure Pass [facility], Ct Scan - [address] [address] Social History Tobacco Use Types Packs/Day Years [...] 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 file documented as of this encounter Functional Status * Calculated C-SSRS Risk Score (Lifetime/Recent) Answer Date of Assessment Author No Risk Indicated 03/10/2021 11:47 AM EDT Kim You RN * [place] Suicide Severity Rating Scale (Screener/Recent Self-Report) Question [...] st Contact Info) Description 11/13/2024 Procedure Pass [facility], [address] [address] 06/04/2025 6:45 PM EDT Appointment [address] [address] Carl Ferguson MBBS [address] [place] [address] [email or web address] documented as of this encounter Visit Diagnoses Not on filedocumented in this encounter Additional Health Concerns Infection Onset Date Last Indicated Resolved Time CoV-Risk Comment:Per Ambulatory Triage Form 09/26/2021 09/26/202110/06 1:23 AM EST CoV-Risk 01/23/2022 01/23/2022 02/03/2022 1:24 AM EDT documented as of this encounter Care Teams Child Protective Services Specialist Relationship Specialty Start Date End Date Jeanmarie Drake DO PCP - General 08/22/17 09/30/24 Jeanmarie Drake DO [address] [place] [address] PCP - General Internal Medicine 10/01/24 Jeanmarie Drake DO [address] [place] [address] [email or web address] Insurance Assigned Provider 06/24/21 01/05/23 Quyen Farnsworth CGC [address] [place] [address] [email or web address] Genetic Counselor Genetics 08/18/24 Carl Ferguson MBBS [address] [place] [address] [email or web address] Primary Oncologist Medical Oncology 10/08/24 documented as of this encounter Additional Source Comments The information contained in this document represents components of the legal health record. It is not the complete legal health record.[facility]
--- OUTSIDE RECORDS SUMMARY | 2025-05-25 13:54 | XMS_ITS | Encounter Summary ---
Author Organization [facility] Address [address] [place] [address] [place] [address] Phone Care Team Providers Care Processing Assistant Name Role Phone Jeanmarie Drake Stacy Primary Care Provider [phone] Jeanmarie Drake DO Unavailable Quyen Farnsworth [facility] Unavailable [phone] Bigda, Jeanmarie Kumar DO Primary Care Provider [phone] Carl Ferguson MB Unavailable [phone] Encounter Details Date Type Department Care Team (Late st Contact Info) Description 05/20/2021 Procedure Pass [address] [address] Social History Tobacco Use Types Packs/Day Years [...] 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 Not on file documented as of this encounter Plan of Treatment Upcoming Encounters Date Type Department Care Team (Late st Contact Info) Description 11/13/2024 Procedure Pass [facility], [address] [address] 06/04/2025 6:45 PM EDT Appointment [facility], [address] [address] Carl Ferguson MBBS [address] [place] [address] [email or web address] documented as of this encounter Visit Diagnoses Not on filedocumented in this encounter Additional Health Concerns Infection Onset Date Last Indicated Resolved Time CoV-Risk Comment:Per Ambulatory Triage Form 09/26/2021 09/26/202110/06 1:23 AM EST CoV-Risk 01/23/2022 01/23/2022 02/03/2022 1:24 AM EDT documented as of this encounter Care Teams Processing Assistant Relationship Specialty Start Date End Date Jeanmarie Drake DO [email or web address] PCP - General 08/22/17 09/30/24 Jeanmarie Drake DO [address] [place] [address] [email or web address] PCP - General Internal Medicine 10/01/24 Jeanmarie Drake DO [address] [place] [address] [email or web address] Insurance Assigned Provider 06/24/21 01/05/23 Quyen Farnsworth CGC [address] [place] [address] [email or web address] Genetic Counselor Genetics 08/18/24 Carl Ferguson MBBS [address] [place] [address] [email or web address] Primary Oncologist Medical Oncology 10/08/24 documented as of this encounter Additional Source Comments The information contained in this document represents components of the legal health record. It is not the complete legal health record.[facility]
--- OUTSIDE RECORDS SUMMARY | 2025-05-25 13:54 | XMS_ITS | Encounter Summary ---
Author Organization [facility] Address [address] [place] [address] Phone Care Team Providers Care Handbell Choir Director Name Role Phone Jeanmarie Drake DO Primary Care Provider [phone] Jeanmarie Drake DO Unavailable Javad Quyen Z [facility] Unavailable [phone] Jeanmarie Drake DO Primary Care Provider [phone] Carl Ferguson MBBS Unavailable [phone] Encounter Details Date Type Department Care Team (Late st Contact Info) Description 02/05/2020 Transcribe Orders Virtual Department [address] [place] [address] Jeanmarie Drake DO [address] [facility] [address] Radiculopathy, lumbar region (Primary Dx) Social History [...] 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 Not on file documented as of this encounter Plan of Treatment Upcoming Encounters Date Type Department Care Team (Late st Contact Info) Description 11/13/2024 Procedure Pass [address] [address] 06/04/2025 6:45 PM EDT Appointment [address] [address] Carl Ferguson, NAYELI [address] [place] [address] [email or web address] documented as of this encounter Visit Diagnoses Diagnosis Radiculopathy, lumbar region- Primary Thoracic or lumbosacral neuritis or radiculitis, unspecified documented in this encounter Additional Health Concerns Infection Onset Date Last Indicated Resolved Time CoV-Risk Comment:Per Ambulatory Triage Form 09/26/2021 09/26/202110/06 1:23 AM EST CoV-Risk 01/23/2022 01/23/2022 02/03/2022 1:24 AM EDT documented as of this encounter Care Teams Handbell Choir Director Relationship Specialty Start Date End Date Jeanmarie Drake DO PCP - General 08/22/17 09/30/24 Jeanmarie Drake DO [address] [place] [address] PCP - General Internal Medicine 10/01/24 Jeanmarie Drake DO [address] [place] [address] Insurance Assigned Provider 06/24/21 01/05/23 Quyen Farnsworth CGC [address] [place] [address] [email or web address] Genetic Counselor Genetics 08/18/24 Carl Ferguson MBBS [address] [place] [address] [email or web address] Primary Oncologist Medical Oncology 10/08/24 documented as of this encounter Additional Source Comments The information contained in this document represents components of the legal health record. It is not the complete legal health record.[facility]
--- OUTSIDE RECORDS SUMMARY | 2025-05-25 13:54 | XMS_ITS | Encounter Summary ---
Author Organization [facility] Address [address] [facility] [address] [place] [address] Phone Care Team Providers Care Senior Site Manager Name Role Phone Quyen Farnsworth [place] [facility] Unavailable [phone] Jeanmarie Drake DO Primary Care Provider [phone] Carl Ferguson Unavailable [phone] Reason for Referral * Outpatient Procedure - Closed Specialty Diagnoses / Procedures Referred By Husam ruth Referred To Contact Radiology Diagnoses Breast pain Procedures US Breast (Right) US Breast (Bilateral) Carl Ferguson MBBS [address] [facility] [place] [address] Phone: tel: fax: [email or web address] Referral ID Status Reason Start Date Expiration Date Visits Re quested Visits Authorized [id number] Closed 10/01/2024 10/01/2025 1 1 Encounter Details Date Type Department Care Team (Late st Contact Info) Description 10/29/2024 Ancillary Orders [facility] [address] [place] [address] Carl Ferguson MBBS [address] [place] [address] [email or web address] Breast pain (Primary Dx) Social History Tobacco [...] 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 Carl TYLER IMG US BREAST Final Resu lt documented in this encounter Visit Diagnoses Diagnosis Breast pain Mastodynia Breast pain- Primary Mastodynia documented in this encounter Care Teams Senior Site Manager Relationship Specialty Start Date End Date Jeanmarie Drake DO [address] [place] [address] [email or web address] PCP - General Internal Medicine 10/01/24 Quyen Farnsworth CGC [address] [place] [address] [email or web address] Genetic Counselor Genetics 08/18/24 Carl Ferguson MBBS [address] [place] [address] [email or web address] Primary Oncologist Medical Oncology 10/08/24 documented as of this encounter Additional Source Comments The information contained in this document represents components of the legal health record. It is not the complete legal health record.[facility]
--- OUTSIDE RECORDS SUMMARY | 2025-05-25 13:54 | XMS_ITS | Encounter Summary ---
Author Organization [facility] Address [address] [place] [address] [place] [address] Phone Care Team Providers Care Customer Specialist Name Role Phone Zandramo Jeanmarie Stacy DO Primary Care Provider [phone] Bigda, Jeanmarie Kumar DO Unavailable Quyen Farnsworth [facility] Unavailable [phone] Bigda, Jeanmarie A DO Primary Care Provider [phone] Carl Ferguson MBBS Unavailable [phone] Encounter Details Date Type Department Care Team (Latest Contact Info) Description 12/02/2018 Transcribe Orders Virtual Department 30 [place] [address] Oralia Whiteside, MECHANIST [address] [place] [address] [email or web address] Hyperparathyroidism (Primary Dx) Social History [...] 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 POS - [id number] us Oralia Whiteside MECHANIST IMG US THYROID Final Resul t documented in this encounter Visit Diagnoses Diagnosis Hyperparathyroidism- Primary Hyperparathyroidism, unspecified Hyperparathyroidism Hyperparathyroidism, unspecified documented in this encounter Additional Health Concerns Infection Onset Date Last Indicated Resolved Time CoV-Risk Comment:Per Ambulatory Triage Form 09/26/2021 09/26/202110/06 1:23 AM EST CoV-Risk 01/23/2022 01/23/2022 02/03/2022 1:24 AM EDT documented as of this encounter Care Teams Customer Specialist Relationship Specialty Start Date End Date Jeanmarie Drake DO [email or web address] PCP - General 08/22/17 09/30/24 Jeanmarie Drake DO [address] [place] [address] PCP - General Internal Medicine 10/01/24 Jeanmarie Drake DO [address] [place] [address] [email or web address] Insurance Assigned Provider 06/24/21 01/05/23 Quyen Farnsworth CGC [address] [place] [address] [email or web address] Genetic Counselor Genetics 08/18/24 Carl Ferguson MBBS [address] [place] [address] [email or web address] Primary Oncologist Medical Oncology 10/08/24 documented as of this encounter Additional Source Comments The information contained in this document represents components of the legal health record. It is not the complete legal health record.[facility]
--- OUTSIDE RECORDS SUMMARY | 2025-05-25 13:54 | XMS_ITS | Encounter Summary ---
Author Organization [facility] Address [address] [place] [address] Phone Care Team Providers Care Licensed Dispensing Optician Name Role Phone Vidal Jeanmarie Stacy Primary Care Provider [phone] ZandradaJeanmarie DO Unavailable Quyen Farnsworth [facility] Unavailable [phone] Bigda, Jeanmarie Kumar DO Primary Care Provider [phone] Carl Ferguson MBBS Unavailable [phone] Encounter Details Date Type Department Care Team (Late st Contact Info) Description 11/05/2022 Ancillary Orders Non-Invasive Cardiology 30 [place] [address] Leonardo Davis MD [address] [place] [phone] [email or web address] Dyspnea on exertion Social History [...] 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 Not on file documented as of this encounter Plan of Treatment Upcoming Encounters Date Type Department Care Team (Late st Contact Info) Description 11/13/2024 Procedure Pass [address] [address] 06/04/2025 6:45 PM EDT Appointment [address] [address] Carl Ferguson MBBS [address] [place] [address] [email or web address] documented as of this encounter Visit Diagnoses Diagnosis Dyspnea on exertion Other dyspnea and respiratory abnormality documented in this encounter Care Teams Licensed Dispensing Optician Relationship Specialty Start Date End Date Jeanmarie Drake DO PCP - General 08/22/17 09/30/24 Jeanmarie Drake DO [address] [place] [address] PCP - General Internal Medicine 10/01/24 Jeanmarie Drake DO [address] [place] [address] [email or web address] Insurance Assigned Provider 06/24/21 01/05/23 Quyen Farnsworth CGC [address] [place] [address] [email or web address] Genetic Counselor Genetics 08/18/24 Carl Ferguson MBBS [address] [place] [address] [email or web address] Primary Oncologist Medical Oncology 10/08/24 documented as of this encounter Additional Source Comments The information contained in this document represents components of the legal health record. It is not the complete legal health record.[facility]
--- OUTSIDE RECORDS SUMMARY | 2025-05-25 13:54 | XMS_ITS | Encounter Summary ---
Author Organization [facility] Address [address] [place] [address] [place] [address] Phone Care Team Providers Care Administrative Services Director Name Role Phone Zandramo Jeanmarie Stacy Primary Care Provider [phone] BigdaJeanmarie DO Unavailable Quyen Farnsworth [facility] Unavailable [phone] Bigda, Jeanmarie A DO Primary Care Provider [phone] Carl Ferguson MBBS Unavailable [phone] Encounter Details Date Type Department Care Team (Latest Contact Info) Description 11/24/2018 Transcribe Orders Virtual Department 30 [place] [address] Oralia Whiteside, PARTNER [address] [place] [address] 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 POS - [id number] Oralia Shanks Stevo PARTNER IMG XR SPINE Final Resul t documented [...] documented as of this encounter Care Teams Administrative Services Director Relationship Specialty Start Date End Date Jeanmarie Drake DO [email or web address] PCP - General 08/22/17 09/30/24 Jeanmarie Drake DO [address] [place] [address] [email or web address] PCP - General Internal Medicine 10/01/24 Jeanmarie Drake DO [address] [place] [address] [email or web address] Insurance Assigned Provider 06/24/21 01/05/23 Quyen Farnsworth CGC [address] [place] [address] [email or web address] Genetic Counselor Genetics 08/18/24 Carl Ferguson MBBS [address] [place] [address] [email or web address] Primary Oncologist Medical Oncology 10/08/24 documented as of this encounter Additional Source Comments The information contained in this document represents components of the legal health record. It is not the complete legal health record.[facility]
--- OUTSIDE RECORDS SUMMARY | 2025-05-25 13:54 | XMS_ITS | Encounter Summary ---
Author Organization [facility] Address [address] [facility] [address] [place] [address] Phone Care Team Providers Care Rn Home Care Name Role Phone ZandraJeanmarie hassan DO Primary Care Provider [phone] Quyen Farnsworth [facility] Unavailable [phone] Jeanmarie Drake DO Primary Care Provider [phone] Carl Ferguson MBBS Unavailable [phone] Encounter Details Date Type Department Care Team (Latest Contact Info) Description 03/01/2023 Transcribe Orders Virtual Department [address] [place] [address] Phylicia Mcknight PA [address] [place] [address] [place] [address] Cervicalgia (Primary Dx) Social History Tobacco Use [...] 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 us Phylicia LOPES IMG XR SPINE Final Resul t documented in this encounter Visit Diagnoses Diagnosis Cervicalgia- Primary Cervicalgia documented in this encounter Care Teams Rn Home Care Relationship Specialty Start Date End Date Jeanmarie Drake DO [email or web address] PCP - General 08/22/17 09/30/24 Jeanmarie Drake DO [address] [place] [address] PCP - General Internal Medicine 10/01/24 Quyen Farnsworth CGC [address] [place] [address] [email or web address] Genetic Counselor Genetics 08/18/24 Carl Ferguson MBBS [address] [place] [address] [email or web address] Primary Oncologist Medical Oncology 10/08/24 documented as of this encounter Additional Source Comments The information contained in this document represents components of the legal health record. It is not the complete legal health record.[facility]
--- OUTSIDE RECORDS SUMMARY | 2025-05-25 13:54 | XMS_ITS | Encounter Summary ---
Author Organization [facility] Address [address] [place] [address] Phone Care Team Providers Care Automotive Manufacturer Name Role Phone Zandramo Jeanmarie Stacy Primary Care Provider [phone] Bigda, Jeanmarie Kumar DO Unavailable Quyen Farnsworth [facility] Unavailable [phone] Bigda, Jeanmarie A DO Primary Care Provider [phone] Carl Ferguson MBBS Unavailable [phone] Encounter Details Date Type Department Care Team (Late Contact Info) Description 12/02/2018 Transcribe Orders Virtual Department 30 [place] [address] Oralia Whiteside, BOILERMAKER'S ASSISTANT [address] [place] [address] Social History Tobacco Use Types Packs/Day Years [...] 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 documented as of this encounter Visit Diagnoses Not on filedocumented in this encounter Additional Health Concerns Infection Onset Date Last Indicated Resolved Time CoV-Risk Comment:Per Ambulatory Triage Form 09/26/2021 09/26/202110/06 1:23 AM EST CoV-Risk 01/23/2022 01/23/2022 02/03/2022 1:24 AM EDT documented as of this encounter Care Teams Automotive Manufacturer Relationship Specialty Start Date End Date Jeanmarie Drake DO PCP - General 08/22/17 09/30/24 Jeanmarie Drake DO [address] [place] [address] PCP - General Internal Medicine 10/01/24 Jeanmarie Drake DO [address] [place] [address] Insurance Assigned Provider 06/24/21 01/05/23 Quyen Farnsworth CGC [address] [place] [address] [email or web address] Genetic Counselor Genetics 08/18/24 Carl Ferguson MBBS [address] [place] [address] [email or web address] Primary Oncologist Medical Oncology 10/08/24 documented as of this encounter Additional Source Comments The information contained in this document represents components of the legal health record. It is not the complete legal health record.[facility]
--- OUTSIDE RECORDS SUMMARY | 2025-05-25 13:54 | XMS_ITS | Encounter Summary ---
Author Organization [facility] Address [address] [facility] [address] [place] [address] Phone Care Team Providers Care Vp Software Support Name Role Phone Quyen Farnsworth Erin 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 Not on file documented as of this encounter Plan of Treatment Upcoming Encounters Date Type Department Care Team (Late st Contact Info) Description 11/13/2024 Procedure Pass [address] [address] 06/04/2025 6:45 PM EDT Appointment [address] [address] Carl Ferguson MBBS [address] [place] [address] [email or web address] documented as of this encounter Visit Diagnoses Not on filedocumented in this encounter Care Teams Vp Software Support Relationship Specialty Start Date End Date Jeanmarie Drake DO [address] [place] [address] PCP - General Internal Medicine 10/01/24 Quyen Farnsworth CGC [address] [place] [address] [email or web address] Genetic Counselor Genetics 08/18/24 Carl Ferguson MBBS [address] [place] [address] [email or web address] Primary Oncologist Medical Oncology 10/08/24 documented as of this encounter Additional Source Comments The information contained in this document represents components of the legal health record. It is not the complete legal health record.[facility]
--- OUTSIDE RECORDS SUMMARY | 2025-05-25 13:54 | XMS_ITS | Encounter Summary ---
Author Organization [facility] Address [address] [place] [address] [place] [address] Phone Care Team Providers Care Director Of People Name Role Phone Zandramo Jeanmarie Stacy Primary Care Provider [phone] Bigda, Jeanmarie Kumar DO Unavailable Quyen Farnsworth [facility] Unavailable [phone] Bigda, Jeanmarie A DO Primary Care Provider [phone] Carl Ferguson MBBS Unavailable [phone] Encounter Details Date Type Department Care Team (Late Contact Info) Description 12/01/2018 Transcribe Orders Virtual Department 30 [place] [address] Oralia Whiteside, PREVENTIVE MEDICINE OFFICER [address] [place] [address] Social History Tobacco Use Types Packs/Day Years [...] 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 Not on file documented as of this encounter Plan of Treatment Upcoming Encounters Date Type Department Care Team (Late st Contact Info) Description 11/13/2024 Procedure Pass [address] [address] 06/04/2025 6:45 PM EDT Appointment [address] [address] Carl Ferguson, NAYELI [address] [place] [address] [email or web address] documented as of this encounter Visit Diagnoses Not on filedocumented in this encounter Additional Health Concerns Infection Onset Date Last Indicated Resolved Time CoV-Risk Comment:Per Ambulatory Triage Form 09/26/2021 09/26/202110/06 1:23 AM EST CoV-Risk 01/23/2022 01/23/2022 02/03/2022 1:24 AM EDT documented as of this encounter Care Teams Director Of People Relationship Specialty Start Date End Date Jeanmarie Drake DO PCP - General 08/22/17 09/30/24 Jeanmarie Drake DO [address] [place] [address] PCP - General Internal Medicine 10/01/24 Jeanmarie Drake DO [address] [place] [address] Insurance Assigned Provider 06/24/21 01/05/23 Quyen Farnsworth CGC [address] [place] [address] [email or web address] Genetic Counselor Genetics 08/18/24 Carl Ferguson MBBS [address] [place] [address] [email or web address] Primary Oncologist Medical Oncology 10/08/24 documented as of this encounter Additional Source Comments The information contained in this document represents components of the legal health record. It is not the complete legal health record.[facility]
--- OUTSIDE RECORDS SUMMARY | 2025-05-25 13:54 | XMS_ITS | Encounter Summary ---
Author Organization [facility] Address [address] [facility] [address] [place] [address] Phone Care Team Providers Care Professor Of Legal Studies Name Role Phone Quyen Farnsworth [facility] Unavailable [phone] Jeanmarie Drake DO Primary Care Provider [phone] Carl Ferguson MBBS Unavailable [phone] Encounter Details Date Type Department Care Team ([facility] Contact Info) Description 11/16/2024 Transcribe Orders [facility] Oncology Virtual Department 30 [place] [address] Jeanmarie Drake DO [address] [facility] [place], [place] [phone] Social History Tobacco Use Types Packs/Day Years [...] 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 Not on file documented as of this encounter Plan of Treatment Upcoming Encounters Date Type Department Care Team (Late st Contact Info) Description 11/13/2024 Procedure Pass [address] [address] 06/04/2025 6:45 PM EDT Appointment [address] [address] Carl Ferguson MBBS [address] [place] [address] [email or web address] documented as of this encounter Visit Diagnoses Not on filedocumented in this encounter Care Teams Professor Of Legal Studies Relationship Specialty Start Date End Date Jeanmarie Drake DO [address] [place] [address] [email or web address] PCP - General Internal Medicine 10/01/24 Quyen Farnsworth CGC [address] [place] [address] [email or web address] Genetic Counselor Genetics 08/18/24 Carl Ferguson MBBS [address] [place] [address] [email or web address] Primary Oncologist Medical Oncology 10/08/24 documented as of this encounter Additional Source Comments The information contained in this document represents components of the legal health record. It is not the complete legal health record.[facility]
--- OUTSIDE RECORDS SUMMARY | 2025-05-25 13:54 | XMS_ITS | Encounter Summary ---
Author Organization [facility] Address [address] [place] [address] Phone Care Team Providers Care Bank Vault Custodian Name Role Phone Jeanmarie Drake DO Primary Care Provider [phone] Jeanmarie Drake DO Unavailable Javad Quyen Z [facility] Unavailable [phone] Vidal, Jeanmarie Kumar DO Primary Care Provider [phone] Carl Ferguson MBBS Unavailable [phone] Reason for Referral * MRI/CAT Scan - Closed Specialty Diagnoses / Procedures Referred By Husam ruth Referred To Contact Radiology Diagnoses Abdominal pain, unspecified abdominal location Procedures CT Abdomen/Pelvis Es Jones PA-C Phone: tel: fax: Referral ID Status Reason Start Date Expiration Date Visits Re quested Visits Authorized [id number] Closed 04/24/2019 06/23/2019 1 1 Encounter Details Date Type Department Care Team (Latest Contact Info) Description 04/24/2019 Transcribe Orders Virtual Department 30 [place] [address] Es Jones PA-C 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 TOTAL CTDIvol: 8.6 mGy POS - [id number] Narrative 05/01/2019 12:24 PM EDT EXAM: CT [...] study. TOTAL CTDIvol: 8.6 mGy POS - [id number] November Robert PA-C IMG CT ABD/PELVIS Final [...] documented as of this encounter Care Teams Bank Vault Custodian Relationship Specialty Start Date End Date Jeanmarie Drake DO PCP - General 08/22/17 09/30/24 Jeanmarie Drake DO [address] [place] [address] [email or web address] PCP - General Internal Medicine 10/01/24 Jeanmarie Drake DO [address] [place] [address] [email or web address] Insurance Assigned Provider 06/24/21 01/05/23 Quyen Farnsworth [facility] [address] [place] [address] [email or web address] Genetic Counselor Genetics 08/18/24 Carl Ferguson MBBS [address] [place] [address] [email or web address] Primary Oncologist Medical Oncology 10/08/24 documented as of this encounter Additional Source Comments The information contained in this document represents components of the legal health record. It is not the complete legal health record.[facility]
--- OUTSIDE RECORDS SUMMARY | 2025-05-25 13:55 | XMS_ITS | Clinical Summary ---
Author Organization [facility] Address [address] [address] Care Team Providers Care Blocker And Sewer Name Role Phone Jeanmarie Drake DO Primary Care Provider [phone] Social History Tobacco Use Types Packs/Day Years [...] Vaccine (#1) 2025 05/09/2021, 2017 [place] Care Teams Blocker And Sewer Relationship Specialty Start Date End Date Jeanmarie Drake DO [address] [place] [address] PCP - General Internal Medicine 05/29/22
--- OUTSIDE RECORDS SUMMARY | 2025-05-25 13:55 | XMS_ITS | Encounter Summary ---
Author Organization [facility] Address [address] [place] [address] [place] [address] Phone Care Team Providers Care Steel Pan Form Placing Supervisor Name Role Phone Jeanmarie Drake DO Primary Care Provider [phone] Jeanmarie Drake DO Unavailable Javad Quyen Z [facility] Unavailable [phone] Jeanmarie Drake DO Primary Care Provider [phone] Carl Ferguson MB Unavailable [phone] Encounter Details Date Type Department Care Team (Late st Contact Info) Description 01/17/2022 Ancillary Orders [facility], X-Ray - [facility] [address] [place] [address] Jeanmarie Drake DO [address] [facility] [place] [address] [email or web address] Cough Social History Tobacco Use Types Packs/Day [...] 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 Not on file documented as of this encounter Plan of Treatment Upcoming Encounters Date Type Department Care Team (Late st Contact Info) Description 11/13/2024 Procedure Pass [address] [address] 06/04/2025 6:45 PM EDT Appointment [address] [address] Carl Ferguson, NAYELI [address] [place] [address] [email or web address] documented as of this encounter Results [...] IMPRESSION: No focal pulmonary consolidation us Jeanmarie A Bigda DO IMG XR CHEST Final Result documented in this encounter Visit Diagnoses Diagnosis Cough Cough documented in this encounter Additional Health Concerns Infection Onset Date Last Indicated Resolved Time CoV-Risk 01/23/2022 01/23/2022 02/03/2022 1:24 AM EDT documented as of this encounter Care Teams Steel Pan Form Placing Supervisor Relationship Specialty Start Date End Date Jeanmarie Drake DO [email or web address] PCP - General 08/22/17 09/30/24 Jeanmarie Drake DO [address] [place] [address] [email or web address] PCP - General Internal Medicine 10/01/24 Jeanmarie Drake DO [address] [place] [address] [email or web address] Insurance Assigned Provider 06/24/21 01/05/23 Quyen Farnsworth CGC [address] [place] [address] [email or web address] [email or web address] Genetic Counselor Genetics 08/18/24 Carl Ferguson MBBS [address] [place] [address] [email or web address] [email or web address] Primary Oncologist Medical Oncology 10/08/24 documented as of this encounter Additional Source Comments The information contained in this document represents components of the legal health record. It is not the complete legal health record.[facility]
--- OUTSIDE RECORDS SUMMARY | 2025-05-25 13:55 | XMS_ITS | Encounter Summary ---
Author Organization [facility] Address [address] [place] [address] [place] [address] Phone Care Team Providers Care Refuse Driver Name Role Phone Jeanmarie Drake Stacy Primary Care Provider [phone] Jeanmarie Drake DO Unavailable Quyen Farnsworth [facility] Unavailable [phone] Bigda, Jeanmarie Kumar DO Primary Care Provider [phone] Carl Ferguson MBBS Unavailable [phone] Encounter Details Date Type Department Care Team (Late st Contact Info) Description 12/24/2022 Procedure Pass [facility], Ct Scan - [address] [address] Social History Tobacco Use Types Packs/Day Years [...] 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 Wish to be (Past 1 Month) No 023 2:43 PM EDT Edie Soliz, CHAVA 2. Non-Specific Active Suici dora Thoughts (Past 1 Month) No 12/24/2022 2:43 PM EDT Edie Soliz RN 6. Suicidal Behavior (Lifetime) No 3 2:43 PM EDT Edie Soliz RN documented as of this encounter Plan of Treatment Upcoming Encounters Date Type Department Care Team (Late st Contact Info) Description 11/13/2024 Procedure Pass [address] [address] 06/04/2025 6:45 PM EDT Appointment [address] [address] Carl Ferguson MBBS [address] [place] [address] [email or web address] documented as of this encounter Visit Diagnoses Not on filedocumented in this encounter Care Teams Refuse Driver Relationship Specialty Start Date End Date Jeanmarie Drake DO PCP - General 08/22/17 09/30/24 Jeanmarie Drake DO [address] [place] [address] PCP - General Internal Medicine 10/01/24 Jeanmarie Drake DO [address] [place] [address] [email or web address] Insurance Assigned Provider 06/24/21 01/05/23 Quyen Farnsworth CGC [address] [place] [address] [email or web address] Genetic Counselor Genetics 08/18/24 Carl Ferguson MBBS [address] [place] [address] [email or web address] Primary Oncologist Medical Oncology 10/08/24 documented as of this encounter Additional Source Comments The information contained in this document represents components of the legal health record. It is not the complete legal health record.[facility]
--- OUTSIDE RECORDS SUMMARY | 2025-05-25 13:55 | XMS_ITS | Encounter Summary ---
Author Organization [facility] Address [address] [facility] [address] [place] [address] Phone Care Team Providers Care Art Objects Supervisor Name Role Phone Jeanmarie Drake DO Primary Care Provider [phone] Quyen Farnsworth [facility] Unavailable [phone] Jeanmarie Drake DO Primary Care Provider [phone] Carl Ferguson MBBS Unavailable [phone] Encounter Details Date Type Department Care Team (Late st Contact Info) Description 07/05/2024 Procedure Pass [facility], Ct Scan - [address] [address] Social History Tobacco Use Types Packs/Day Years [...] 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 Not on file documented as of this encounter Functional Status * Calculated C-SSRS Risk Score (Lifetime/Recent) Answer Date of Assessment Author No Risk Indicated 07/05/2024 8:02 PM Allie Noyola RN * [place] Suicide Severity Rating Scale (Screener/Recent Self-Report) Question [...] st Contact Info) Description 11/13/2024 Procedure Pass [address] [address] 06/04/2025 6:45 PM EDT Appointment [address] [address] Carl Ferguson MBBS [address] [place] [address] [email or web address] documented as of this encounter Visit Diagnoses Not on filedocumented in this encounter Care Teams Art Objects Supervisor Relationship Specialty Start Date End Date Jeanmarie Darke DO [email or web address] PCP - General 08/22/17 09/30/24 Jeanmarie Drake DO [address] [place] [address] [email or web address] PCP - General Internal Medicine 10/01/24 Quyen Farnsworth CGC [address] [place] [address] [email or web address] Genetic Counselor Genetics 08/18/24 Carl Ferguson MBBS [address] [place] [address] [email or web address] Primary Oncologist Medical Oncology 10/08/24 documented as of this encounter Additional Source Comments The information contained in this document represents components of the legal health record. It is not the complete legal health record.[facility]
--- OUTSIDE RECORDS SUMMARY | 2025-05-25 13:55 | XMS_ITS | Encounter Summary ---
Author Organization [facility] Address [address] [place] [address] [place] [address] Phone Care Team Providers Care Forklift Picker Name Role Phone Jeanmarie Drake Stacy Primary Care Provider [phone] Jeanmarie Drake DO Unavailable Quyen Farnsworth [facility] Unavailable [phone] Bigda, Jeanmarie Kumar DO Primary Care Provider [phone] Carl Ferguson MBBS Unavailable [phone] Encounter Details Date Type Department Care Team (Late st Contact Info) Description 10/26/2021 Procedure Pass [facility] [address] [place] [address] Social History Tobacco Use Types Packs/Day Years [...] 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 [place] [facility] [address] [place] [address] Carl Ferguson MBBS 30 [place] [address] [email or web address] documented as of this encounter Visit Diagnoses Not on filedocumented in this encounter Additional Health Concerns Infection Onset Date Last Indicated Resolved Time CoV-Risk 01/23/2022 01/23/2022 02/03/2022 1:24 AM EDT documented as of this encounter Care Teams Forklift Picker Relationship Specialty Start Date End Date Jeanmarie Drake DO [email or web address] PCP - General 08/22/17 09/30/24 Jeanmarie Drake DO [address] [place] [address] [email or web address] PCP - General Internal Medicine 10/01/24 Jeanmarie Drake DO [address] [place] [address] [email or web address] Insurance Assigned Provider 06/24/21 01/05/23 Quyen Farnsworth CGC [address] [place] [address] [email or web address] Genetic Counselor Genetics 08/18/24 Carl Ferguson MBBS [address] [place] [address] [email or web address] Primary Oncologist Medical Oncology 2/20/25 documented as of this encounter Additional Source Comments The information contained in this document represents components of the legal health record. It is not the complete legal health record.[facility]
--- OUTSIDE RECORDS SUMMARY | 2025-05-25 13:55 | XMS_ITS | Encounter Summary ---
Author Organization [facility] Address [address] [place] [address] [place] [address] Phone Care Team Providers Care Demo Event Specialist Name Role Phone Zandramo Jeanmarie Stacy Primary Care Provider [phone] Jeanmarie Drake DO Unavailable Quyen Farnsworth [facility] Unavailable [phone] Bigda, Jeanmarie A DO Primary Care Provider [phone] Carl Ferguson MBBS Unavailable [phone] Encounter Details Date Type Department Care Team (Latest Contact Info) Description 04/14/2018 Ancillary Orders Virtual Department [address] [place] [address] Es Jones PA-C 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 file documented as of this encounter Plan of Treatment Upcoming Encounters Date Type Department Care Team (Late st Contact Info) Description 11/13/2024 Procedure Pass [address] [address] 06/04/2025 6:45 PM EDT Appointment [address] [address] Carl Ferguson, NAYELI [address] [place] [address] [email or web address] documented as of this encounter Results * [...] documented as of this encounter Care Teams Demo Event Specialist Relationship Specialty Start Date End Date Jeanmarie Drake DO [email or web address] PCP - General 08/22/17 09/30/24 Jeanmarie Drake DO [address] [place] [address] [email or web address] PCP - General Internal Medicine 10/01/24 Jeanmarie Drake DO [address] [place] [address] [email or web address] Insurance Assigned Provider 06/24/21 01/05/23 Quyen Farnsworth [facility] [address] [place] [address] [email or web address] Genetic Counselor Genetics 08/18/24 Carl Ferguson MBBS [address] [place] [address] [email or web address] Primary Oncologist Medical Oncology 10/08/24 documented as of this encounter Additional Source Comments The information contained in this document represents components of the legal health record. It is not the complete legal health record.[facility]
--- OUTSIDE RECORDS SUMMARY | 2025-05-25 13:55 | XMS_ITS | Encounter Summary ---
Author Organization [facility] Address [address] [place] [address] Phone Care Team Providers Care Agency Service Coordinator Name Role Phone Jeanmarie Drake DO Primary Care Provider [phone] Quyen Farnsworth [facility] Unavailable [phone] Jeanmarie Drake DO Primary Care Provider [phone] Carl Ferguson [employer] Unavailable [phone] Encounter Details Date Type Department Care Team (Late st Contact Info) Description 08/04/2024 Transcribe Orders Virtual Department [address] [place] [address] Jeanmarie Drake DO [address] [facility] [place] [address] [place] [address] [email or web address] Breast screening (Primary Dx) Social History Tobacco [...] 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 Not on file documented as of this encounter Plan of Treatment Upcoming Encounters Date Type Department Care Team (Late st Contact Info) Description 11/13/2024 Procedure Pass [address] [address] 06/04/2025 6:45 PM EDT Appointment [address] [address] Carl Ferguson, NAYELI [address] [place] [phone] [email or web address] documented as of this encounter Visit Diagnoses Diagnosis Breast screening- Primary Breast screening, unspecified documented in this encounter Care Teams Agency Service Coordinator Relationship Specialty Start Date End Date Jeanmarie Drake DO PCP - General 08/22/17 09/30/24 Jeanmarie Drake DO [address] [place] [phone] PCP - General Internal Medicine 10/01/24 Quyen Farnsworth [facility] [address] [place] [address] [email or web address] Genetic Counselor Genetics 08/18/24 Carl Ferguson MBBS [address] [place] [address] [email or web address] Primary Oncologist Medical Oncology 10/08/24 documented as of this encounter Additional Source Comments The information contained in this document represents components of the legal health record. It is not the complete legal health record.[facility]
--- OUTSIDE RECORDS SUMMARY | 2025-05-25 13:55 | XMS_ITS | Encounter Summary ---
Author Organization [facility] Address [address] [place] [address] [place] [address] Phone Care Team Providers Care Finisher Tailor Apprentice Name Role Phone Jeanmarie Drake DO Primary Care Provider [phone] Jeanmarie Drake DO Unavailable Javad Quyen Z [facility] Unavailable [phone] Jeanmarie Drake DO Primary Care Provider [phone] Carl Ferguson [facility] Unavailable [phone] Reason for Referral * Outpatient Procedure - Closed Specialty Diagnoses / Procedures Referred By Husam ruth Referred To Contact Diagnoses Chest pain, unspecified type Procedures Adult Echo TTE Jeanmarie Drake DO Phone: tel: fax: mailto:[email or web address] Referral ID Status Reason Start Date Expiration Date Visits Re quested Visits Authorized [id number] Closed 10/26/2021 10/27/2022 1 1 * Outpatient Procedure - Closed Specialty Diagnoses / Procedures Referred By Husam ruth Referred To Contact Diagnoses Chest pain, unspecified type Procedures Stress Test Exercise Jeanmarie Drake DO Phone: tel: fax: mailto:[email or web address] Referral ID Status Reason Start Date Expiration Date Visits Re quested Visits Authorized [id number] Closed 10/27/2021 10/27/2022 2 2 Encounter Details Date Type Department Care Team (Late st Contact Info) Description 10/26/2021 Transcribe Orders Virtual Department [address] [place] [phone] Jeanmarie Drake DO [address] [facility] [place] [address] [email or web address] Chest pain, unspecified type Social History Tobacco [...] 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 documented as of this encounter [...] a prior TTE from 02/21/2017 us Jeanmarie A Bigda DO CV ECHO ORDERABLES Final Result * Stress Test Exercise (11/09/2021 10:34 AM EDT) Max BP Systolic 188 mmHg [facility] Max BP Diastolic 118 mmHg [facility] Max HR 111 BPM [facility] Resting HR 76 BPM [facility]1983 Resting BP Systolic 160 mmHg [facility] Resting BP Diastolic 108 mmHg [facility] Peak METS 4.6 METS [facility] Peak HR 110 BPM [facility], [facility]1983 Peak BP Systolic 164 mmHg [facility], [facility] Peak BP Diastolic 102 mmHg [facility], [facility]1983 Anatomical Region Laterality Modality Heart Other 11/09/2021 [...] predicted heart rate. Rate pressure product was [address]. REPORT- Pt exercised for 2:03 min on [...] NP-C with Dr Farias. us Jeanmarie A Bigda DO CV STRESS ORDERABLES Final Resul t [...] skeletal abnormality. IMPRESSION: Mild cardiomegaly. us Jeanmarie Drake DO IMG XR CHEST Final Result documented in this encounter Visit Diagnoses Diagnosis Chest pain, unspecified type Chest pain, unspecified type Chest pain, unspecified type Chest pain, unspecified type documented in this encounter Additional Health Concerns Infection Onset Date Last Indicated Resolved Time CoV-Risk 01/23/2022 01/23/2022 02/03/2022 1:24 AM EDT documented as of this encounter Care Teams Finisher Tailor Apprentice Relationship Specialty Start Date End Date Jeanmarie Drake DO [email or web address] PCP - General 08/22/17 09/30/24 Jeanmarie Drake DO [address] [place] [address] PCP - General Internal Medicine 10/01/24 Jeanmarie Drake DO [address] [place] [address] Insurance Assigned Provider 06/24/21 01/05/23 Quyen Farnsworth [facility] [address] [place] [phone] [email or web address] Genetic Counselor Genetics 08/18/24 Carl Ferguson MBBS [address] [place] [address] [email or web address] Primary Oncologist Medical Oncology 10/08/24 documented as of this encounter Additional Source Comments The information contained in this document represents components of the legal health record. It is not the complete legal health record.[facility]
[2025-05-26 03:28] LABS: Follicle Stimulating Hormone 74.2 mIU/mL
[2025-06-10 05:23] LABS: Estradiol Ultra Sensitive <2 pg/mL
== END 2025-05-25 11:08 | disposition home or self-care (01) ==
LOC: HO.MANLDS 11:07
PROVIDERS: Visit Provider Physician Assistant
DX: N95.1 Menopausal and female climacteric states (principal)
CPT/HCPCS: 36415; 82670; 82672; 83001; 83002; 84144; 84146; 84443

== ENCOUNTER 2025-07-27 08:57 | Outpatient (REF) | payer SELFPAY ==
[2025-07-27 09:15] LABS: MANUAL DIFF FLAG NO
[2025-07-27 09:50] LABS: Hematocrit 41.9 % (37.0-47.0); Hemoglobin 13.0 g/dl (12.0-16.0); Imm Gran Abs Auto 0.05 X10*3/uL (0.00-0.03); Imm Gran Pct Auto 0.6 % (0.0-0.4); Lymphocytes Absolute Auto 2.4 X10*3/uL (1.2-4.9); Mean Corpuscular HGB Conc 31.0 g/dl (31.0-35.0); Mean Corpuscular Hemoglobin 25.2 pg (27.0-33.0); Mean Corpuscular Volume 81.4 fL (80.0-98.0); NRBC Abs Auto 0.000 X10*3/uL (0.0-0.012); NRBC Pct Auto 0.0 /100WBC (0.0-0.2); Platelet Count 290 X10*3/uL (160-400); Red Blood Count 5.15 X10*6/uL (4.20-5.50); White Blood Count 8.2 X10*3/uL (4.8-10.8)
[2025-07-27 10:27] LABS: Alanine Aminotransferase 26 U/L (0-31); Albumin Level 4.6 g/dL (3.5-5.0); Alkaline Phosphatase 151 U/L (39-117); Anion Gap 11 (12-20); Aspartate Amino Transferase 23 U/L (5-31); Blood Urea Nitrogen 10 mg/dL (9-16); Calcium 11.3 mg/dL (8.4-10.2); Carbon Dioxide 27 mmol/L (22-29); Chloride 107 mmol/L (96-108); Cholesterol 154 mg/dL (<200); Estimated Glomerular Filt Rate > 60; HDL Cholesterol 50 mg/dL (>40); Potassium 4.2 mmol/L (3.3-5.1); Sodium 141 mmol/L (135-145); Total Protein 8.1 g/dL (6.5-8.0); Triglycerides 48 mg/dL (<150)
[2025-07-27 10:48] LABS: HBsAGNum1 0.33 S/CO (0.00-0.99); Hepatitis B Surface Antigen Negative (Negative)
[2025-07-28 06:43] LABS: Rubeola IgG (Measles) >300.00 AU/mL
== END 2025-07-27 08:58 | disposition home or self-care (01) ==
LOC: HO.LAB 08:57
PROVIDERS: PCP Internal Medicine; Visit Provider Internal Medicine
DX: Z01.84 Encounter for antibody response examination (principal); I10 Essential (primary) hypertension; Z78.9 Other specified health status
CPT/HCPCS: 36415; 80053; 80061; 85025; 86735; 86762; 86765; 86787; 87340